=== PATIENT | female | born 1955 | race Caucasian/White ===

== ENCOUNTER 2021-05-31 07:50 | Outpatient (REF) | payer OTHER, SELFPAY ==
--- NOTE | ~2021-05-31 | XR_ITS ---
EXAMINATION: XR KNEE STANDING BILATERAL XR KNEE, RIGHT XR KNEE, LEFT CLINICAL INFORMATION: Bilateral knee pain COMPARISON: 11/25/2017 TECHNIQUE: AP standing view both knees Right knee, sunrise and lateral views Left knee, sunrise and lateral views FINDINGS: AP standing view both knees: There are marginal osteophytes at the degenerated tibiofemoral compartments of each knee. At the right knee, there is mild narrowing of the medial joint space. At the left knee, there is severe loss of the medial joint space. The joint space loss at the left knee is slightly worse compared to 11/25/2017. Right knee: Mild narrowing of lateral patellofemoral joint space and osteophyte formation. No fracture or subluxation. No knee joint effusion. Left knee: Patella is well-positioned in the trochlear groove. The patellofemoral joint space is maintained despite presence of marginal osteophytes and small subchondral cysts. No fracture, subluxation or joint effusion. XR/XR knee RT 2V IMPRESSION: * Chronic, mild tricompartmental osteoarthritis of the right knee. * Chronic, tricompartment osteoarthritis of the left knee which is worst (i.e., severe) at the medial tibiofemoral compartment. The medial compartment joint space loss appears to be worse compared to 11/25/2017.
--- NOTE | ~2021-05-31 | XR_ITS ---
EXAMINATION: XR KNEE STANDING BILATERAL XR KNEE, RIGHT XR KNEE, LEFT CLINICAL INFORMATION: Bilateral knee pain COMPARISON: 11/25/2017 TECHNIQUE: AP standing view both knees Right knee, sunrise and lateral views Left knee, sunrise and lateral views FINDINGS: AP standing view both knees: There are marginal osteophytes at the degenerated tibiofemoral compartments of each knee. At the right knee, there is mild narrowing of the medial joint space. At the left knee, there is severe loss of the medial joint space. The joint space loss at the left knee is slightly worse compared to 11/25/2017. Right knee: Mild narrowing of lateral patellofemoral joint space and osteophyte formation. No fracture or subluxation. No knee joint effusion. Left knee: Patella is well-positioned in the trochlear groove. The patellofemoral joint space is maintained despite presence of marginal osteophytes and small subchondral cysts. No fracture, subluxation or joint effusion. XR/XR knee LT 2V IMPRESSION: * Chronic, mild tricompartmental osteoarthritis of the right knee. * Chronic, tricompartment osteoarthritis of the left knee which is worst (i.e., severe) at the medial tibiofemoral compartment. The medial compartment joint space loss appears to be worse compared to 11/25/2017.
--- NOTE | ~2021-05-31 | XR_ITS ---
EXAMINATION: XR KNEE STANDING BILATERAL XR KNEE, RIGHT XR KNEE, LEFT CLINICAL INFORMATION: Bilateral knee pain COMPARISON: 11/25/2017 TECHNIQUE: AP standing view both knees Right knee, sunrise and lateral views Left knee, sunrise and lateral views FINDINGS: AP standing view both knees: There are marginal osteophytes at the degenerated tibiofemoral compartments of each knee. At the right knee, there is mild narrowing of the medial joint space. At the left knee, there is severe loss of the medial joint space. The joint space loss at the left knee is slightly worse compared to 11/25/2017. Right knee: Mild narrowing of lateral patellofemoral joint space and osteophyte formation. No fracture or subluxation. No knee joint effusion. Left knee: Patella is well-positioned in the trochlear groove. The patellofemoral joint space is maintained despite presence of marginal osteophytes and small subchondral cysts. No fracture, subluxation or joint effusion. XR/XR knee standing BI IMPRESSION: * Chronic, mild tricompartmental osteoarthritis of the right knee. * Chronic, tricompartment osteoarthritis of the left knee which is worst (i.e., severe) at the medial tibiofemoral compartment. The medial compartment joint space loss appears to be worse compared to 11/25/2017.
== END 2021-05-31 07:51 | disposition home or self-care (01) ==
LOC: HO.HOSX 07:50
PROVIDERS: Visit Provider Physician Assistant
DX: M17.0 Bilateral primary osteoarthritis of knee (principal)
CPT/HCPCS: 20610; 73560; 73565; J1040

== ENCOUNTER 2022-06-03 10:38 | Outpatient (REF) | payer OTHER, SELFPAY ==
[2022-06-03 13:48] LABS: MANUAL DIFF FLAG NO
[2022-06-03 13:54] LABS: Appearance Urine CLEAR; Color Urine YELLOW; Glucose Urine UA NEG (NEG); Leukocyte Esterase Urine NEG (NEG); Nitrite Urine NEG (NEG); PH 7.5 (5.0-8.0); Specific Gravity - Urine 1.015 (1.005-1.025); Urine Blood NEG (NEG); Urine Ketones NEG (NEG); Urine Protein NEG (NEG-TRACE)
[2022-06-03 13:55] LABS: Basophils Absolute Auto 0.1 X10*3/uL (0.0-0.2); Basophils Percent Auto 0.9 % (0-2); Eosinophils Absolute Auto 0.1 X10*3/uL (0.0-0.4); Hematocrit 42.1 % (37.0-47.0); Hemoglobin 13.8 g/dl (12.0-16.0); Imm Gran Abs Auto 0.02 X10*3/uL (0.00-0.03); Imm Gran Pct Auto 0.4 % (0.0-0.4); Lymphocytes Absolute Auto 1.3 X10*3/uL (1.2-4.9); Lymphocytes Percent Auto 23.6 % (20-40); Mean Corpuscular HGB Conc 32.8 g/dl (31.0-35.0); Mean Corpuscular Hemoglobin 28.8 pg (27.0-33.0); Mean Corpuscular Volume 87.7 fL (80.0-98.0); Mean Platelet Volume 11.1 fL (9.4-12.3); Monocytes Absolute Auto 0.4 X10*3/uL (0.1-1.2); Monocytes Percent Auto 6.3 % (2-11); Neutrophils Absolute Auto 3.7 x10*3/uL (2.0-8.3); Neutrophils Percent Auto 66.8 % (45-73); Platelet Count 245 X10*3/uL (160-400); Red Cell Distribution Width 12.8 % (11.0-16.0); White Blood Count 5.5 X10*3/uL (4.8-10.8)
[2022-06-03 14:05] LABS: Bacteria Urine 2+ /LPF; RBC Urine 0 /HPF (0); Squamous Epithelial Cell Urine 4+ /LPF
[2022-06-03 14:11] LABS: Alanine Aminotransferase 19 U/L (0-31); Albumin Level 4.3 g/dL (3.5-5.0); Alkaline Phosphatase 87 U/L (39-117); Anion Gap 17 (12-20); Aspartate Amino Transferase 16 U/L (5-31); Bilirubin Total 1.1 mg/dL (0.0-1.0); Blood Urea Nitrogen 15 mg/dL (9-16); Calcium 9.9 mg/dL (8.4-10.2); Carbon Dioxide 25 mmol/L (22-29); Chloride 103 mmol/L (96-108); Cholesterol 194 mg/dL; Estimated Glomerular Filt Rate > 60; Glucose Fasting 100 mg/dL (60-99); HDL Cholesterol 63 mg/dL; LDL Cholesterol Calculated 101 mg/dl; Potassium 4.5 mmol/L (3.3-5.1); Sodium 140 mmol/L (135-145); Total Protein 7.5 g/dL (6.5-8.0); Triglycerides 153 mg/dL
[2022-06-03 14:15] LABS: Estimated Average Glucose 117 mg/dL; Hemoglobin A1c % 5.7 %
[2022-06-03 14:24] LABS: TSH reflex Free T4 0.94 uIU/mL (0.32-4.0)
== END 2022-06-03 10:39 | disposition home or self-care (01) ==
LOC: HO.HMGCLDS 10:38
PROVIDERS: PCP Internal Medicine; Visit Provider Internal Medicine
DX: Z00.00 Encounter for general adult medical examination without abnormal findings (principal); R73.9 Hyperglycemia, unspecified
CPT/HCPCS: 36415; 80053; 80061; 81001; 83036; 84443; 85025

== ENCOUNTER 2022-06-05 15:53 | Outpatient (REF) | payer OTHER, SELFPAY ==
--- NOTE | ~2022-06-05 | MM_ITS ---
EXAMINATION: MM SCREENING DIGITAL BREAST TOMOSYNTHESIS, BILATERAL CLINICAL INFORMATION: Screening. Asymptomatic. The lifetime risk of breast cancer based on the Tyrer-Cuzick Model is 4.6%. COMPARISON: Mammography: None TECHNIQUE: Digital breast tomosynthesis is performed in both the craniocaudal and mediolateral oblique views along with computer-aided detection (CAD). Synthesized 2D images are generated from the tomosynthesis. FINDINGS: The breasts are almost entirely fatty (ACR BI-RADS breast composition Category a). There are no significant masses, abnormal calcifications, or other abnormalities. MM/MM tomosynthesis screening BI IMPRESSION: No mammographic evidence of malignancy. ASSESSMENT: BI-RADS 1: Negative RECOMMENDATION: Routine annual mammography screening. This patient's information was entered into a reminder system with a target due date for their next mammogram.
== END 2022-06-05 15:54 | disposition home or self-care (01) ==
LOC: HO.MAMMO 15:53
PROVIDERS: PCP Internal Medicine; Visit Provider Internal Medicine
DX: Z12.31 Encounter for screening mammogram for malignant neoplasm of breast (principal)
CPT/HCPCS: 77063; 77067

== ENCOUNTER 2022-10-07 07:35 | Outpatient (REF) | payer OTHER, SELFPAY ==
[2022-10-07 09:42] LABS: Estimated Average Glucose 108 mg/dL; Hemoglobin A1c % 5.4 %
[2022-10-07 10:13] LABS: Alanine Aminotransferase 18 U/L (0-31); Albumin Level 4.1 g/dL (3.5-5.0); Alkaline Phosphatase 78 U/L (39-117); Anion Gap 13 (12-20); Aspartate Amino Transferase 15 U/L (5-31); Bilirubin Total 0.8 mg/dL (0.0-1.0); Blood Urea Nitrogen 15 mg/dL (9-16); Calcium 9.7 mg/dL (8.4-10.2); Carbon Dioxide 27 mmol/L (22-29); Chloride 107 mmol/L (96-108); Estimated Glomerular Filt Rate > 60; Glucose Fasting 103 mg/dL (60-99); Potassium 4.8 mmol/L (3.3-5.1); Sodium 142 mmol/L (135-145); Total Protein 6.9 g/dL (6.5-8.0)
== END 2022-10-07 07:36 | disposition home or self-care (01) ==
LOC: HO.LAB 07:35
PROVIDERS: PCP Internal Medicine; Visit Provider Internal Medicine
DX: I10 Essential (primary) hypertension (principal); R73.9 Hyperglycemia, unspecified
CPT/HCPCS: 36415; 80053; 83036

== ENCOUNTER → 2022-11-05 08:58 | Outpatient (REF) | payer BC, SELFPAY | LOC: HO.SL 08:58 | PROVIDERS: PCP Internal Medicine; Visit Provider Internal Medicine | DX: G47.33 Obstructive sleep apnea (adult) (pediatric) (principal) | CPT/HCPCS: 95806 ==

== ENCOUNTER → 2022-11-11 08:52 | Outpatient (BNVA) | payer BC, SELFPAY | PROVIDERS: PCP Internal Medicine; Visit Provider Nurse Practitioner | DX: Z13.89 Encounter for screening for other disorder (principal) ==

== ENCOUNTER → 2022-11-14 12:45 | Outpatient (BNVA) | payer BC, SELFPAY | PROVIDERS: PCP Internal Medicine; Visit Provider Nurse Practitioner Family | DX: Z13.89 Encounter for screening for other disorder (principal) ==

== ENCOUNTER → 2023-02-12 14:18 | Outpatient (BNVA) | payer BC, SELFPAY | PROVIDERS: PCP Internal Medicine; Visit Provider Nurse Practitioner Family | DX: Z13.89 Encounter for screening for other disorder (principal) ==

== ENCOUNTER 2023-03-31 13:07 | Outpatient (REF) | payer BC, SELFPAY ==
[2023-04-01 11:42] LABS: Appearance Urine Clear; Color Urine Yellow; Glucose Urine UA Negative (Negative); Leukocyte Esterase Urine Negative (Negative); Nitrite Urine Negative (Negative); PH 5.5 (5.0-9.0); Urine Blood Negative (Negative); Urine Ketones Negative (Negative); Urine Protein Negative (Neg-Trace)
== END 2023-03-31 13:08 | disposition home or self-care (01) ==
LOC: HO.LAB 13:07
PROVIDERS: Visit Provider Family Medicine
DX: Z00.00 Encounter for general adult medical examination without abnormal findings (principal); R30.0 Dysuria
CPT/HCPCS: 81003; 87086; 87088; 87186

== ENCOUNTER 2023-05-26 09:29 | Outpatient (REF) | payer BC, SELFPAY ==
[2023-05-26 10:41] LABS: Estimated Average Glucose 114 mg/dL; Hemoglobin A1c % 5.6 %
[2023-05-26 11:03] LABS: Alanine Aminotransferase 15 U/L (0-31); Albumin Level 4.1 g/dL (3.5-5.0); Alkaline Phosphatase 84 U/L (39-117); Anion Gap 10 (12-20); Aspartate Amino Transferase 12 U/L (5-31); Bilirubin Total 1.3 mg/dL (0.0-1.0); Blood Urea Nitrogen 15 mg/dL (9-16); Calcium 9.8 mg/dL (8.4-10.2); Carbon Dioxide 27 mmol/L (22-29); Chloride 107 mmol/L (96-108); Cholesterol 142 mg/dL; Estimated Glomerular Filt Rate > 60; Glucose Fasting 112 mg/dL (60-99); HDL Cholesterol 54 mg/dL; LDL Cholesterol Calculated 69 mg/dl; Potassium 4.1 mmol/L (3.3-5.1); Sodium 140 mmol/L (135-145); Total Protein 7.3 g/dL (6.5-8.0); Triglycerides 98 mg/dL
[2023-05-26 11:23] LABS: Vitamin D 25-OH Total 13.3 ng/mL (>30)
[2023-05-26 11:29] LABS: Vitamin B12 398 pg/mL (200-900)
== END 2023-05-26 09:30 | disposition home or self-care (01) ==
LOC: HO.LAB 09:29
PROVIDERS: PCP Internal Medicine; Visit Provider Internal Medicine
DX: I10 Essential (primary) hypertension (principal); R73.9 Hyperglycemia, unspecified
CPT/HCPCS: 36415; 80053; 80061; 82306; 82607; 83036; 84443

== ENCOUNTER 2023-06-04 10:13 | Outpatient (AMB) | payer BC, SELFPAY ==
[2023-06-04 10:38] VITALS: BP 130/70; PULSE 74; O2SAT 95; BMI 41.4
--- NOTE | 2023-06-04 10:38 | MHC.PC.OV ---
Vital Signs 06/04/23 10:38 Height 5 ft 4 in Weight 241 lb BMI 41.4 BP 130/70 Blood Pressure Location Lt brachial Position Sitting Pulse 74 Pulse Source Pulse Oximeter Pulse Oximetry (%) 95 Oxygen Delivery Method Room Air Intake Visit Reasons: Annual PHY Allergies aspirin [ASPIRIN] Adverse Reaction (Unknown, Verified 06/04/23 10:39) STOMACH SENSITIVITY ibuprofen [IBUPROFEN] Adverse Reaction (Unknown, Verified 06/04/23 10:39) STOMACH SENSITIVITY Medication List - Last Reconciled 06/04/23 by Jacqueline Archer MD celecoxib (Celebrex) 200 mg PO DAILY PRN fluconazole (Diflucan) 150 mg PO Q3D 2 doses olmesartan 5 mg PO DAILY riboflavin (vitamin B2) 400 mg PO DAILY 30 days sodium,potassium,mag sulfates 17.5-3.13-1.6 gram (Suprep Bowel Prep Kit) 480 mL orally; Tobacco use date assessed: 06/04/23 Fall risk assessment: 1 Fall in past year Last assessed Fall Risk: 06/04/23 Dental Screening Dental Screen Date: 06/04/23 Did you have a dental visit in the last 12 months?: Yes Did you have a dental problem in the last 6 months where you did not have access to dental care?: No Was dental information given to patient?: No HPI Annual PHY HPI Details Pt presents for PE. Pt c/o rash in the groin area on and off. 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 How often do you have a drink containing alcohol?: Never 3. How often do you have six or more drinks on one occasion?: Never Total Score: 0 Score Reviewed/Action Taken: Yes PEGGY-7 AMB Questionnaire PEGGY-7 Date PEGGY - 7 assessed: 06/03/22 Source: Developed by Drs. Jan Araya, Angela Quijano, Maciel Rothman and colleagues, with an educational amy from [employer]. Review of Systems Const All systems reviewed & are unremarkable except as noted in HPI and below Reports no additional complaints Eyes Reports no additional complaints ENT Reports no additional complaints Card Reports no additional complaints Resp Reports no additional complaints GI Reports no additional complaints Reports no additional complaints Physical exam (Primary Care) Vital Signs: Last Vital Signs Pulse 74 06/04/23 10:38 BP 130/70 06/04/23 10:38 Pulse Ox 95 06/04/23 10:38 Oxygen Delivery Method Room Air 06/04/23 10:38 BMI result Body Mass Index 41.4 Tobacco/Smoking Status: Tobacco use Status Tobacco use date assessed 06/04/23 06/04/23 10:39 Patient Tobacco Use Status Former Tobacco user (15 06/04/23 10:39 years ago) e-Cigarette/Vaping Use Never Used 06/04/23 10:39 Thrive Assessment: Date of Thrive Assessment Date Thrive assessed 06/03/22 06/04/23 10:39 Const General: no acute distress HENMT Head: Yes normal to inspection Ears: hearing grossly normal bilaterally Mouth: Normal oral and palatal mucosa present Throat: Yes posterior oropharynx normal Eyes General: appearance normal, both eyes and all related structures Neck Neck: Yes no lymphadenopathy and Yes supple Resp Effort & Inspection: normal respiratory effort Auscultation: clear to auscultation bilaterally Cardio Rhythm: regular rhythm Heart sounds: S1 normal heart sound present and S2 normal heart sound present GI Inspection: Yes normal to inspection Palpation (GI): Soft to palpation Percussion: Yes normal to percussion Auscultation: normal bowel sounds Assessment and Plan Assessment & Plan (1) DEZ (obstructive sleep apnea): Comment: Severe degree of sleep apnea. The AHI was 37/hr and oxygen jeffy was 78%. on Cpap Code(s): G47.33 - Obstructive sleep apnea (adult) (pediatric) (2) HTN (hypertension): Code(s): I10 - Essential (primary) hypertension Plan: cont Olmesartan (3) Annual physical exam: Code(s): Z00.00 - Encounter for general adult medical examination without abnormal findings Plan: well balanced diet, exercise, weight loss dicussed, check DEXA (4) Hyperglycemia: Code(s): R73.9 - Hyperglycemia, unspecified Plan: ADA diet, weight loss, check A1C Orders: Orders Comprehensive [place]. Panel Fast 6 Months I10 - Essential (primary) hypertension, R73.9 - Hyperglycemia, unspecified Hemoglobin A1c 6 Months I10 - Essential (primary) hypertension, R73.9 - Hyperglycemia, unspecified Lipid Panel 6 Months I10 - Essential (primary) hypertension, R73.9 - Hyperglycemia, unspecified Microalbumin, Random (w Creat) 6 Months I10 - Essential (primary) hypertension, R73.9 - Hyperglycemia, unspecified Medications: New ketoconazole 2% 1 appl topical DAILY 60 grams 3RF Coding Level of Care Code Est Pt Prev Care >65y(92852) Diagnoses DEZ (obstructive sleep apnea) G47.33 HTN (hypertension) I10 Annual physical exam Z00.00 Hyperglycemia R73.9
== END 2023-06-04 13:44 | disposition home or self-care (01) ==
PROVIDERS: PCP Internal Medicine; Visit Provider Internal Medicine
DX: G47.33 Obstructive sleep apnea (adult) (pediatric) (principal); I10 Essential (primary) hypertension; Z00.00 Encounter for general adult medical examination without abnormal findings; R73.9 Hyperglycemia, unspecified
CPT/HCPCS: 99397

== ENCOUNTER 2023-06-16 10:57 | Day surgery (SDC) | payer BC, SELFPAY ==
--- NOTE | 2023-06-15 10:30 | HO.ANESPROP2 ---
Documented by User: Liliana Stevens NP 06/15/23 10:30 HPI - Anesthesia Eval Consult details Narrative: 67yo F for Colonoscopy PMFSH Active Problems Active Problems: All Active Problems (Updated 06/04/23 @ 21:24 by Jacqueline Archer MD) Dysuria (Acute) DEZ (obstructive sleep apnea) (Acute) Family history of colon cancer in father (Acute) Pre-op examination (Acute) S/P knee replacement (Acute) Fibromyalgia (Acute) HTN (hypertension) (Acute) Obese (Acute) OA (osteoarthritis) of knee (Acute) Hyperglycemia (Acute) Annual physical exam (Acute) Osteoarthritis of knees, bilateral (Acute) Past Medical History Medical History Fibromyalgia Osteoarthritis cervical spine Family History Family History Father Colorectal cancer Paternal Grandmother Diabetes Mother Hypertension Lung cancer Surgical History Surgical History H/O: hysterectomy History of carpal tunnel surgery S/P cholecystectomy Social History Social History Household Members Other:: , works from home, no exercise Housing: House Patient Tobacco Use Status: Former Tobacco user Tobacco use type: Cigarette e-Cigarette/Vaping Use: Never Used Use of substances other than those prescribed or required for medical reasons: No Are you DNR?: No Advance Directives: No Advance Directives Information Provided: Yes service: No Current occupational status: employed 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 Cognitive needs: No Hearing needs: No Vision needs: Yes Meds Allergies Allergy/AdvReac Type Severity Reaction Status Date / Time aspirin [ASPIRIN] AdvReac Unknown STOMACH Verified 06/04/23 10:39 SENSITIVITY ibuprofen [IBUPROFEN] AdvReac Unknown STOMACH Verified 06/04/23 10:39 SENSITIVITY Home Medications Medication Instructions Recorded Confirmed Last Taken Type celecoxib 200 mg capsule (Celebrex) 200 mg PO DAILY PRN 11/11/22 06/04/23 Unknown History Exam Exam Date and Time: June 15, 2023 1030 Pertinent Lab Results Pertinent Lab Results: Laboratory Tests 06/03/22 05/26/23 10:43 10:02 WBC 5.5 Hgb 13.8 Hct 42.1 Plt Count 245 Sodium 140 Potassium 4.1 Chloride 107 Carbon Dioxide 27 BUN 15 Creatinine 0.87 Assessment and Plan Assessment Anesthesia Assessment: Chart Reviewed Documented by User: Paula Reilly MD 06/16/23 11:38 PMFSH Past Medical History Medical History Fibromyalgia Osteoarthritis cervical spine Family History Family History Father Colorectal cancer Paternal Grandmother Diabetes Mother Hypertension Lung cancer Family history of problems with anesthesia: No Surgical History Surgical History H/O: hysterectomy History of carpal tunnel surgery S/P cholecystectomy History of Problems with Anesthesia: No Social History Social History Household Members Other:: , works from home, no exercise Housing: House Patient Tobacco Use Status: Former Tobacco user Tobacco use type: Cigarette e-Cigarette/Vaping Use: Never Used Use of substances other than those prescribed or required for medical reasons: No Are you DNR?: No Advance Directives: No Advance Directives Information Provided: Yes service: No Current occupational status: employed 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 Cognitive needs: No Hearing needs: No Vision needs: Yes Meds Allergies Allergy/AdvReac Type Severity Reaction Status Date / Time aspirin [ASPIRIN] AdvReac Unknown STOMACH Verified 06/04/23 10:39 SENSITIVITY ibuprofen [IBUPROFEN] AdvReac Unknown STOMACH Verified 06/04/23 10:39 SENSITIVITY Home Medications Medication Instructions Recorded Confirmed Last Taken Type celecoxib 200 mg capsule (Celebrex) 200 mg PO DAILY PRN 11/11/22 06/04/23 Unknown History Exam Airway Mallampati Class: II TM Dist: >3cm Neck ROM: Full Partial: Upper Heart: rrr Lungs: cta Assessment and Plan Assessment Anesthesia Assessment: Anesthesia Plan Discussed Final Anesthetic Review Family History of Problems with Anesthesia: No History of Problems with Anesthesia: No NPO: Yes ASA Class: II Final Preanesthetic Review: No Changes in Pt Med Stat, Meds/Allgs Chart Reviewed, Consent Obtained/Reviewed and Anes Risks/Benef Reviewed Patient Risk: Low Procedure Risk: Low Anesthetic Plan Anesthetic Plan: MAC: Disposition: Standard PACU
--- NOTE | 2023-06-16 11:12 | MHC.SHP ---
Pre-Procedural Eval Section A Date of Service: 06/16/23 Section B Chief Complaint: Family history of malignant neoplasm of digestive Relevant Family History (Specify if Yes): Yes Relevant Social History: None Present Medications: see Short Stay Collaborative assessment Medical History: Significant History (Hypertension Impaired fasting glucose Obese OA of the knees FMS) History of Previous Operations: Relevant previous surgery/procedure and date(s) (Hysterectomy CT repair Cholecystectomy Left TKR) Allergies: Allergies Allergy/AdvReac Type Severity Reaction Status Date / Time aspirin [ASPIRIN] AdvReac Unknown STOMACH Verified 06/04/23 10:39 SENSITIVITY ibuprofen [IBUPROFEN] AdvReac Unknown STOMACH Verified 06/04/23 10:39 SENSITIVITY Review of Systems Sugical H&P ROS: Negative: Constitution, Cardiovascular, Respiratory, Neurological, Psychiatric, Hem-Onc, Allergic/Immunologic, Gastrointestinal, Genitourinary, Musculoskeletal, Integumentary, Endocrine and Eyes/Ears/Nose/Throat Exam Surgical H&P Exam: Normal: HEENT, Normal: Heart, Normal: Lungs, Normal: Extremities, Normal: Abdomen, Normal: Skin and Normal: Neurological Plan Diagnosis/Plan: Unchanged I have reviewed the history and physical and performed a pertinent physical examination on my patient. No changes have occurred unless specified. Time Spent With Patient Time: Total time managing care of this patient today ____ minutes.
[2023-06-16 11:13] VITALS: BMI 41.0
--- NOTE | 2023-06-16 11:26 | PC.NURSE ---
patients output after second enema was cloudy and light msall unable to see down the toilet. md moore aware. building economist called to cancel patient.
[2023-06-16 11:28] VITALS: BP 158/89; PULSE 79; RESP 16; TEMP 37; O2SAT 96
[2023-06-16] MEDS: Lactated Ringers 1,000 ML 100 ML IVCONT (11:38)
--- NOTE | 2023-06-16 11:46 | P.OP_ITS ---
Operative Note Operative Note Date of Service: 06/16/23 Narrative: Operative Information Procedure Description: Colonoscopy Indication: screening, FH of CRC Anesthesia: MAC COLONOSCOPY Instrument: Olympus variable stiffness pediatric scope 190L Colonoscopy Monitoring: Vital signs and clinical assessment, continuous EKG monitoring, Pulse oximetry, Carbon Dioxide monitoring and blood pressure monitoring were done throughout the procedure. Colon withdrawal time was 22 minutes. Procedure: The patient was placed in the left lateral decubitis position and pre-procedure medications were administered. After a digital rectal examination of the ano-rectum, the video colonoscope was inserted into the rectum and advanced through the colon to the cecum/TI. The colonoscope was slowly withdrawn in a retrograde panoramic fashion and the colon mucosa was carefully examined including a retroflexed view of the rectum. Findings and interventions are described below. Procedure Difficulty: moderate Findings: Terminal Ileum-normal Cecum: 6-8 mm sessile polyp removed with cold snare Ascending Colon: few tics noted, 8-9 mm sessile polyp on retroflexion, injected with eleview and then removed with cold snare Transverse Colon -normal Descending Colon:normal Sigmoid Colon: moderate diverticulosis, 8-10 mm sessile polyp removed with cold snare Rectum: Retroflexion with medium sized internal hemorrhoids, grade I Anorectum - normal Colon preparation: Olivia Bowel Preparation Scale Right colon; 2 Transverse colon: 3 Left colon; 2 (0 = Unprepared colon segment with mucosa not seen due to solid stool that cannot be cleared. 1 = Portion of mucosa of the colon segment seen, but other areas of the colon segment not well seen due to staining, residual stool and/or opaque liquid. 2 = Minor amount of residual staining, small fragments of stool and/or opaque liquid, but mucosa of colon segment seen well. 3 = Entire mucosa of colon segment seen well with no residual staining, small fragments of stool or opaque liquid) Impression and Post Procedure Diagnosis: polyps internal hemorrhoids diverticular disease Plan: High fiber diet leaflet Avoid straining at stool, epsom salts and sitz bath, anusol supps or cream Repeat Colonoscopy in 5 years due to FH of CRC in father or earlier if clinically indicated Refer surgery for hemorrhoids per patient request Above findings were reviewed with the patient and relevant handouts were provided if indicated.
[2023-06-16 12:24] VITALS: BP 122/62; PULSE 78; RESP 16; TEMP 36.8; O2SAT 98
[2023-06-16 12:39] VITALS: BP 120/67; PULSE 64; RESP 18; TEMP 36.8; O2SAT 98
== END 2023-06-16 13:00 | disposition home or self-care (01) ==
PROVIDERS: PCP Internal Medicine; Visit Provider Internal Medicine Gastroenterology
PROC: 0DJD8ZZ Inspection of Lower Intestinal Tract, Via Natural or Artificial Opening Endoscopic (ICD-10-PCS; CPT 45378; principal; 2023-06-16 12:30)
DX: Z12.11 Encounter for screening for malignant neoplasm of colon (principal); Z80.0 Family history of malignant neoplasm of digestive organs; K63.5 Polyp of colon; K57.30 Diverticulosis of large intestine without perforation or abscess without bleeding; K64.0 First degree hemorrhoids; I10 Essential (primary) hypertension; R73.9 Hyperglycemia, unspecified; G47.33 Obstructive sleep apnea (adult) (pediatric); E66.9 Obesity, unspecified; Z68.41 Body mass index [BMI] 40.0-44.9, adult; Z79.899 Other long term (current) drug therapy; Z99.89 Dependence on other enabling machines and devices; F17.210 Nicotine dependence, cigarettes, uncomplicated; Z88.8 Allergy status to other drugs, medicaments and biological substances
CPT/HCPCS: 45385; 45381; 88305

== ENCOUNTER → 2023-06-16 10:57 | Outpatient (BNV) | payer BC, SELFPAY | PROVIDERS: PCP Internal Medicine; Visit Provider Internal Medicine Gastroenterology | DX: Z12.11 Encounter for screening for malignant neoplasm of colon (principal); Z80.0 Family history of malignant neoplasm of digestive organs; D12.0 Benign neoplasm of cecum; D12.2 Benign neoplasm of ascending colon; D12.5 Benign neoplasm of sigmoid colon; K64.0 First degree hemorrhoids | CPT/HCPCS: 45381; 45385 ==

== ENCOUNTER 2023-06-19 11:27 | Outpatient (REF) | payer BC, SELFPAY | END 2023-06-19 11:28 | disposition home or self-care (01) | LOC: HO.MAMMO 11:27 | PROVIDERS: PCP Internal Medicine; Visit Provider Internal Medicine | DX: Z12.31 Encounter for screening mammogram for malignant neoplasm of breast (principal) | CPT/HCPCS: 77063; 77067 ==

== ENCOUNTER → 2023-06-19 11:45 | Outpatient (BNV) | payer BC, SELFPAY | PROVIDERS: PCP Internal Medicine; Visit Provider Radiology Diagnostic Radiology | DX: Z12.31 Encounter for screening mammogram for malignant neoplasm of breast (principal) | CPT/HCPCS: 77063; 77067 ==

== ENCOUNTER 2023-07-08 14:12 | Outpatient (AMB) | payer BC, SELFPAY ==
[2023-07-08 14:13] VITALS: BP 144/78; PULSE 93; BMI 42.7
--- NOTE | 2023-07-08 14:13 | A.OFFVIS_ITS ---
Intake Vital Signs 07/08/23 14:13 Height 5 ft 4 in Weight 249 lb BMI 42.7 BP 144/78 H Blood Pressure Location Rt brachial Position Standing Pulse 93 Intake Visit Reasons: Unspecified hemorrhoids Intake Note: This patient presents for an assessment for hemorrhoids. Patient c/o; reports rectal pain, denies rectal bleeding, denies changes in bowel movement habits. Tattoo Technician Required: No Solar Sales Specialist: Solar Sales Specialist offered & declined Accompanied by: Self / Same As Patient Allergies aspirin [ASPIRIN] Adverse Reaction (Unknown, Verified 07/08/23 14:14) STOMACH SENSITIVITY ibuprofen [IBUPROFEN] Adverse Reaction (Unknown, Verified 07/08/23 14:14) STOMACH SENSITIVITY Medication List - Last Reconciled 07/08/23 by Charly Vallejo MD olmesartan 5 mg PO DAILY HPI Unspecified hemorrhoids HPI Details [age] year old female referred for hemorrhoids. She says she has had hemorrhoids since she was at age of 20. However, she says that she seems to have more frequent problems with and pain. Furthermore, she says she has difficulty with hygiene sometimes as the hemorrhoids make it more difficult to clean up after bowel movements. She denies problems with constipation. She occasionally sees blood on wiping. 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 Cognitive needs: No Hearing needs: No Vision needs: Yes Review of Systems Const Denies chills and Denies fever(s) Card Denies chest pain, Denies dyspnea and Denies dyspnea on exertion Resp Denies cough, Denies dyspnea and Denies dyspnea on exertion GI Denies hematochezia and Denies change in bowel habits Denies hematuria Musc Denies back pain and Denies limited range of motion Neuro Denies focal weakness and Denies convulsions Psych Denies depression and Denies mood swings Physical Exam Vital Signs: Last Vital Signs Pulse 93 07/08/23 14:13 BP 144/78 H 07/08/23 14:13 BMI result Body Mass Index 42.7 Const Other: Morbidly obese General: comfortable and no acute distress Orientation/consciousness: patient oriented x3 Neck Neck: Yes no lymphadenopathy Resp Auscultation: clear to auscultation bilaterally Cardio Rhythm: regular rhythm GI Other: Rectal exam shows moderate size external hemorrhoidal column on the right side Palpation (GI): Soft to palpation, nontender and no guarding Neuro General: patient oriented x3 Office Procedures Anoscopy She was in nadia-knife position. The anoscope was gently inserted. A full examination of the anal canal was done. She had a relatively large hemorrhoidal column on the right side, most external. There were no other lesions. There was no fissure. There was no induration. There was no bleeding. [id number] Assessment & Plan Assessment & Plan (1) Bleeding hemorrhoids: Code(s): K64.9 - Unspecified hemorrhoids Plan: She describes periodic bleeding as well as pain and swelling with her hemorrhoids. She also says that these causes some problems with hygiene as she has difficulty with cleaning after bowel movements. On examination, this mostly external on the right side. I had a long discussion with her about the technique of hemorrhoidectomy. I explained the risks including but not limited to bleeding, infections, poor healing, postop pain, as well as the benefits and alternatives. I explained to her what to expect postoperatively. She says she will talk to her sister about the surgery and will call me if she decides to proceed. Coding Level of Care Code New Pt Level 3 (92465) Diagnoses Bleeding hemorrhoids K64.9 CPT Codes Details - CPT: 72425-[id number] ([id number])
== END 2023-07-08 14:39 | disposition home or self-care (01) ==
PROVIDERS: PCP Internal Medicine; Referring Provider Internal Medicine Gastroenterology; Visit Provider Surgery
DX: K64.8 Other hemorrhoids (principal)
CPT/HCPCS: 46600; 99203

== ENCOUNTER → 2023-07-08 14:12 | Outpatient (BNVA) | payer BC, SELFPAY | PROVIDERS: PCP Internal Medicine; Referring Provider Internal Medicine Gastroenterology; Visit Provider Surgery | DX: K64.4 Residual hemorrhoidal skin tags (principal) | CPT/HCPCS: 46600 ==

== ENCOUNTER 2023-07-15 09:53 | Outpatient (AMB) | payer BC, SELFPAY ==
[2023-07-15 09:57] VITALS: BP 134/68; PULSE 69; BMI 42.7
--- NOTE | 2023-07-15 09:57 | A.OFFVIS_ITS ---
Intake Vital Signs 07/15/23 09:57 Height 5 ft 4 in Weight 249 lb BMI 42.7 BP 134/68 Blood Pressure Location Rt brachial Position Sitting Pulse 69 Intake Visit Reasons: S/p mehnaz-Luis Armando Intake Note: Patient presents to in office visit today in colonoscopy follow up. Patient underwent colonoscopy on 06/16/[address] Durán. On last visit office in November the patient was c/o rectal pain. CC: She reports occasional constipation depending on what she eats or drinks but takes Miralax and that helps. 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 She has fears of the prep r/t her large and easily irritated external hemorrhoid, and N/V as her stomach is sensitive. Will send zofran and give Calmoseptine cream. She has occasional diarrhea, this is when she eats 20 fatty foods status post cholecystectomy and she denies any upper stomach problems. She has had nausea with prior anesthesia. She just had a test for DEZ and she is awaiting the results. She denies any asthma or out right cardiac problems. No ID problems Her father of CRC at age 62. (2) Family history of colon cancer in fa ther: Comment: age 62 Code(s): Z80.0 - Family history of malignant neoplasm of digestive organs Medications: New sodium,potassium,m ag sulfates 17.5-3 .13-1.6 gram (Supr ep Bowel Prep Kit) 480 mL orally; 3 54 mL 0RF Z01.818 - Encounte r for other prepro cedural examinatio n ondansetron HCl 4 mg PO ONCE PRN 2 tabs 0RF nausea and vomiting : COLONOSCOPY 06/16/23 Findings: Terminal Ileum-normal Cecum: 6-8 mm sessile polyp removed with cold snare Ascending Colon: few tics noted, 8-9 mm sessile polyp on retroflexion, injected with eleview and then removed with cold snare Transverse Colon -normal Descending Colon:normal Sigmoid Colon: moderate diverticulosis, 8-10 mm sessile polyp removed with cold snare Rectum: Retroflexion with medium sized internal hemorrhoids, grade I Anorectum - normal Impression and Post Procedure Diagnosis: polyps internal hemorrhoids diverticular disease Plan: High fiber diet leaflet Avoid straining at stool, epsom salts and sitz bath, anusol supps or cream Repeat Colonoscopy in 5 years due to FH of CRC in father or earlier if clinically indicated Refer surgery for hemorrhoids per patient request BIOPSY Received: 06/16/23 Diagnosis A. Colon, cecal polyp: Consistent with hyperplastic polyp. B. Colon, ascending, polyp: Consistent with hyperplastic polyp (see comment). C. Colon, sigmoid, polyp: Perineurioma. Comment: (B): Sessile serrated lesion without dys plasia cannot be ruled out in any residual lesion. Follow-up warranted FROM [facility] Colonic perineuriomas, or fibroblastic polyps, are rare benign mucosal lesions comprising a proliferation of bland spindle cells expressing markers of perineurial differentiation.1 https:// casereports.bmj.com/content/[email or web address]#ref-[email or web address] ?They are usually found in the rectum and sigmoid colon,? TODAY'S VISIT She is agreeable to the 5 year follow up. The procedure was well tolerated. The results were explained and the patient is agreeable to the follow-up interval as stated. The bowel pattern has returned to normal. Education was provided to tell any 1st degree relatives about their findings to be sure that they are screened by age 45. Educated that they will be put on a recall list when it is time for their repeat scope but should they move out of state or away from the hospital they will need to remember along with their primary to repeat the procedure in a timely fashion to avoid any adverse complications. She had suprep and liked this prep. [place] garcias [facility] Medical History (Updated 07/15/23 @ 13:42 by THADDEUS Guo) Bleeding hemorrhoids Osteoarthritis cervical spine Fibromyalgia Surgical History (Updated 07/15/23 @ 10:04 by Chavo Bruner [facility]) H/O colonoscopy History of carpal tunnel surgery S/P cholecystectomy H/O: hysterectomy Family History Father Colorectal cancer Paternal Grandmother Diabetes Mother Hypertension Lung cancer Social History Household Members Other:: , works from home, no exercise Housing: House Patient Tobacco Use Status: Former Tobacco user Tobacco use type: Cigarette e-Cigarette/Vaping Use: Never Used service: No Current occupational status: employed 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 Cognitive needs: No Hearing needs: No Vision needs: Yes Review of Systems Const Denies fatigue, Denies fever(s), Denies night sweats, Denies poor appetite and Denies weight loss ENT Reports Normal hearing present, Denies dental pain, Denies dysphagia, Denies hearing loss, Denies mouth pain, Denies odynophagia, Denies throat swelling, Denies tongue swelling and Reports other (Dentition adequate) Card Reports no additional complaints Resp Reports no additional complaints GI Denies abdominal pain, Denies melena, Denies bloating, Denies hematochezia, Denies constipation, Denies GI cramping, Denies dysphagia, Denies excessive flatus, Denies early satiety, Denies heartburn, Denies diarrhea, Denies nausea, Denies odynophagia, Denies vomiting and Denies hematemesis Skin/Breast Denies pruritus, Denies lesions, Denies rash and Denies jaundice Neuro Reports Normal hearing present and Denies Abnormal speech present Endo Denies fatigue Aller/Immun Denies throat swelling and Denies tongue swelling Physical Exam Vital Signs: Last Vital Signs Pulse 69 07/15/23 09:57 BP 134/68 07/15/23 09:57 BMI result Body Mass Index 42.7 Const General: cooperative, no acute distress, well developed and well groomed Nutritional Appearance: well nourished and obese morbidly obese Orientation/consciousness: oriented to person, oriented to place and oriented to time Limitations: No language barrier HEENT Head: Yes normocephalic and Yes atraumatic Eyes General: appearance normal, both eyes and all related structures Pupils: Equal, round and reactive pupils present Neck Neck: Yes normal visual inspection and Yes no lymphadenopathy Thyroid: Thyroid normal Resp Effort & Inspection: normal respiratory effort and able to speak in complete sentences Auscultation: clear to auscultation bilaterally Cardio Rate: regular rate Rhythm: regular rhythm Heart sounds: Normal, physiologic split S2 sound present Peripheral pulses: radial pulses present and posterior tibial pulses present GI Inspection: No distended, Yes Abdominal panniculus present and Yes obesity Palpation (GI): Soft to palpation, nontender, no guarding, not rigid and No hepatosplenomegaly present Percussion: Yes normal to percussion Auscultation: normal bowel sounds Rectal Exam - Female: deferred Skin General skin exam: no rashes or lesions noted, turgor normal, skin not dry, no jaundice, No spider nevi and no striae Rashes: no rashes Nails: normal Neuro General: oriented to person, oriented to place and oriented to time Cranial nerves: Yes Equal, round and reactive pupils present and Yes Normal hearing present Speech: No Abnormal speech present Extrem General: Yes normal to inspection, No clubbing, No cyanosis and No edema Psych Appearance: grossly normal and well kempt Mental Status: mental status grossly normal Speech and movement: Normal speech and movement present Affect: normal affect Attitude: cooperative Thought process: Normal thought process present and not confabulating Thought content: Normal thought content present Insight: Good insight present (Psych) Judgement: Good judgement present (Psych) Assessment & Plan Assessment & Plan (1) Tubular adenoma of colon: Comment: SESSILE POLYP 2022 repeat in 5 years Code(s): D12.6 - Benign neoplasm of colon, unspecified Plan: She is agreeable to the 5 year follow up. The procedure was well tolerated. The results were explained and the patient is agreeable to the follow-up interval as stated. The bowel pattern has returned to normal. Education was provided to tell any 1st degree relatives about their findings to be sure that they are screened by age 45. Educated that they will be put on a recall list when it is time for their repeat scope but should they move out of state or away from the hospital they will need to remember along with their primary to repeat the procedure in a timely fashion to avoid any adverse complications. She had suprep and liked this prep. [place] p.r.n. Orders: Referrals Colon & Rectal Referral K64.9 - Unspecified hemorrhoids Coding Level of Care Code Est Pt Level 3 (87469) Diagnoses Tubular adenoma of colon D12.6
== END 2023-07-15 11:07 | disposition home or self-care (01) ==
PROVIDERS: PCP Internal Medicine; Visit Provider Nurse Practitioner
DX: D12.6 Benign neoplasm of colon, unspecified (principal)
CPT/HCPCS: 99213

== ENCOUNTER → 2023-07-15 09:53 | Outpatient (BNVA) | payer BC, SELFPAY | PROVIDERS: PCP Internal Medicine; Visit Provider Nurse Practitioner | DX: K64.9 Unspecified hemorrhoids (principal) ==

== ENCOUNTER → 2023-08-24 10:21 | Outpatient (BNVA) | payer MEDICARE, BC, SELFPAY | PROVIDERS: PCP Internal Medicine; Visit Provider Physician Assistant ==

== ENCOUNTER 2023-08-31 11:26 | Outpatient (AMB) | payer BC, SELFPAY ==
[2023-08-31 13:43] VITALS: BP 146/82; PULSE 78; TEMP 36.5; O2SAT 98; BMI 44.6
--- NOTE | 2023-08-31 13:43 | MHC.OFFWIV ---
Intake Vital Signs 08/31/23 13:43 Height 5 ft 4 in Weight 260 lb 2 oz BMI 44.6 BP 146/82 H Blood Pressure Location Rt brachial Position Sitting Pulse 78 Pulse Source Pulse Oximeter Temp 97.7 F Temp Source Oral Pulse Oximetry (%) 98 Oxygen Delivery Method Room Air Intake Visit Reasons: EP-Rt knee pain-Waiting room Intake Note: Pt presents to the office today for c/o right knee pain. Pt states she twisted her leg about 3 weeks ago. Pt states the pain has been there since then but within the past few days it has gotten much worse. Pt states she also has radiating pain going to her hip as well. Patient Tobacco Use Status: Former Tobacco user Allergies aspirin [ASPIRIN] Adverse Reaction (Unknown, Verified 08/31/23 13:58) STOMACH SENSITIVITY ibuprofen [IBUPROFEN] Adverse Reaction (Unknown, Verified 08/31/23 13:58) STOMACH SENSITIVITY Medication List - Last Reconciled 08/31/23 by Yvan Balderrama MD celecoxib 200 mg PO DAILY CPAP As directed olmesartan 5 mg PO DAILY HPI EP-Rt knee pain-Waiting room HPI Details 67-year-old female presents to the office for a sick visit. Patient is complaining of pain in the right knee for the past 3 weeks. The pain is slowly progressing and since the last 2 days is limping while walking. Does not have an injury or fall prior to the onset of symptoms. [facility] Medical History Bleeding hemorrhoids Osteoarthritis cervical spine Fibromyalgia Surgical History History of left knee replacement H/O colonoscopy History of carpal tunnel surgery S/P cholecystectomy H/O: hysterectomy Family History Father Colorectal cancer Paternal Grandmother Diabetes Mother Hypertension Lung cancer Social History (Updated 08/31/23 @ 13:47 by Nicolle Boateng MA) Household Members Other:: , works from home, no exercise Housing: House Alcohol intake: never Patient Tobacco Use Status: Former Tobacco user Tobacco use type: Cigarette e-Cigarette/Vaping Use: Never Used service: No Current occupational status: employed 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 Pain on flexion of the knee. Full extension. Assessment & Plan Assessment & Plan (1) Right knee sprain: Code(s): S83.91XA - Sprain of unspecified site of right knee, initial encounter Plan x-ray images were reviewed by me. minimal effusion, loose body in the popliteal fossa and DJD changes seen. Knee brace applied. Meloxicam given. If symptoms not improved to follow-up with her primary care provider. Coding Level of Care Code Est Pt Level 4 (60671) Diagnoses Right knee sprain S83.91XA
== END 2023-08-31 14:21 | disposition home or self-care (01) ==
PROVIDERS: PCP Internal Medicine; Visit Provider Internal Medicine
DX: S83.91XA Sprain of unspecified site of right knee, initial encounter (principal)
CPT/HCPCS: 99214

== ENCOUNTER 2023-08-31 13:57 | Outpatient (REF) | payer BC, SELFPAY ==
--- NOTE | ~2023-08-31 | XR_ITS ---
EXAMINATION: XR KNEE, RIGHT CLINICAL INFORMATION: Sprain of unspecified site of right knee COMPARISON: 05/31/2021 TECHNIQUE: Four views of the right knee. FINDINGS: Joint effusion present. Mild medial joint space narrowing. Small medial marginal osteophytes XR/XR knee RT 4V IMPRESSION: Mild degenerative changes. Joint effusion.
== END 2023-08-31 13:58 | disposition home or self-care (01) ==
LOC: HO.HMGCX 13:57
PROVIDERS: PCP Internal Medicine; Visit Provider Internal Medicine
DX: S83.91XA Sprain of unspecified site of right knee, initial encounter (principal)
CPT/HCPCS: 73564

== ENCOUNTER 2023-09-09 14:10 | Outpatient (AMB) | payer BC, SELFPAY ==
--- NOTE | 2023-09-09 14:48 | A.OFFPC_ITS ---
Vital Signs 09/09/23 14:49 Height 5 ft 4 in Weight 266 lb BMI 45.7 BP 142/80 H Blood Pressure Location Lt brachial Position Sitting Pulse 78 Pulse Source Pulse Oximeter Pulse Oximetry (%) 97 Oxygen Delivery Method Room Air Intake Visit Reasons: Right Knee Injury Intake Note: Pt is here today for a follow up visit on R knee pain. Pt states that she was seen in the walk in for this and had xray done and the pain is not getting better. Allergies aspirin [ASPIRIN] Adverse Reaction (Unknown, Verified 09/09/23 14:49) STOMACH SENSITIVITY ibuprofen [IBUPROFEN] Adverse Reaction (Unknown, Verified 09/09/23 14:49) STOMACH SENSITIVITY Medication List - Last Reconciled 09/09/23 by Jacqueline Archer MD celecoxib 200 mg PO DAILY CPAP As directed meloxicam 15 mg PO DAILY olmesartan 5 mg PO DAILY Tobacco use date assessed: 09/09/23 HPI Right Knee Injury HPI Details Pt presents the follow-up of persistent R knee pain for 5 weeks after twisting it. Pt took meloxicam and wore a knee brace but the pain is persistent worse when weight-bearing. She denies joint swelling erythema or warmth. The knee x-ray showed small effusion and mild osteoarthritis. Patient gained 25 lb since June. She has been under lot of stress related to her traumatic brain injury. [facility] Medical History Bleeding hemorrhoids Osteoarthritis cervical spine Fibromyalgia Surgical History History of left knee replacement H/O colonoscopy History of carpal tunnel surgery S/P cholecystectomy H/O: hysterectomy Family History Father Colorectal cancer Paternal Grandmother Diabetes Mother Hypertension Lung cancer Social History (Updated 08/31/23 @ 13:47 by Nicolle Boateng MA) Household Members Other:: , works from home, no exercise Housing: House Alcohol intake: never Patient Tobacco Use Status: Former Tobacco user Tobacco use type: Cigarette e-Cigarette/Vaping Use: Never Used service: No Current occupational status: employed 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 How often do you have a drink containing alcohol?: Never 3. How often do you have six or more drinks on one occasion?: Never Total Score: 0 PEGGY-7 AMB Questionnaire PEGGY-7 Date PEGGY - 7 assessed: 06/03/22 Source: Developed by Drs. Jan Araya, Angela Quijano, Maciel Rothman and colleagues, with an educational amy from [employer]. Review of Systems Const All systems reviewed & are unremarkable except as noted in HPI and below Reports no additional complaints Eyes Reports no additional complaints ENT Reports no additional complaints Card Reports no additional complaints Resp Reports no additional complaints GI Reports no additional complaints Reports no additional complaints Physical exam (Primary Care) Vital Signs: Last Vital Signs Pulse 78 09/09/23 14:49 BP 142/80 H 09/09/23 14:49 Pulse Ox 97 09/09/23 14:49 Oxygen Delivery Method Room Air 09/09/23 14:49 BMI result Body Mass Index 45.7 Tobacco/Smoking Status: Tobacco use Status Tobacco use date assessed 09/09/23 09/09/23 14:55 Patient Tobacco Use Status Former Tobacco user 09/09/23 14:55 Tobacco use type Cigarette 09/09/23 14:55 e-Cigarette/Vaping Use Never Used 09/09/23 14:55 Thrive Assessment: Date of Thrive Assessment Date Thrive assessed 06/03/22 09/09/23 14:55 Const General: no acute distress HENMT Face and sinus: Yes normal facial exam Throat: Yes posterior oropharynx normal Resp Effort & Inspection: normal respiratory effort Auscultation: clear to auscultation bilaterally Cardio Rhythm: regular rhythm Heart sounds: S1 normal heart sound present and S2 normal heart sound present Extrem Other: Right knee with decreased range of motion lateral aspect tenderness, no soft tissue swelling erythema or warmth Assessment and Plan Assessment & Plan (1) Injury of meniscus of right knee: Code(s): S83.8X1A - Sprain of other specified parts of right knee, initial encounter Plan: Knee MRI will be obtained to evaluate for meniscus injury. Patient will be referred to PT (2) Obese: Code(s): E66.9 - Obesity, unspecified Plan: Decrease caloric intake increase physical activity discussed with the patient (3) HTN (hypertension): Code(s): I10 - Essential (primary) hypertension Plan: Includes olmesartan to 10 mg a day, patient will have fasting blood work in 1 week and will follow-up in 1 month for blood pressure check (4) Hyperglycemia: Code(s): R73.9 - Hyperglycemia, unspecified Plan: ADA diet increase physical activity weight loss discussed with the patient. A1c will be checked Orders: Orders PT Evaluation and Treatment Today S83.8X1A - Sprain of other specified parts of right knee, initial encounter Comprehensive [place]. Panel Fast 1 Week E66.9 - Obesity, unspecified, I10 - Essential (primary) hypertension, R73.9 - Hyperglycemia, unspecified TSH reflex Free T4 1 Week E66.9 - Obesity, unspecified, I10 - Essential (primary) hypertension, R73.9 - Hyperglycemia, unspecified MR knee RT wo con Today S83.8X1A - Sprain of other specified parts of right knee, initial encounter Hemoglobin A1c 1 Week E66.9 - Obesity, unspecified, I10 - Essential (primary) hypertension, R73.9 - Hyperglycemia, unspecified B Type Natriuretic Peptide 1 Week E66.9 - Obesity, unspecified, I10 - Essential (primary) hypertension, R73.9 - Hyperglycemia, unspecified Coding Level of Care Code Est Pt Level 4 (87211) Diagnoses Injury of meniscus of right knee S83.8X1A Obese E66.9 HTN (hypertension) I10 Hyperglycemia R73.9
[2023-09-09 14:49] VITALS: BP 142/80; PULSE 78; O2SAT 97; BMI 45.7
== END 2023-09-09 15:40 | disposition home or self-care (01) ==
PROVIDERS: PCP Internal Medicine; Visit Provider Internal Medicine
DX: S83.8X1A Sprain of other specified parts of right knee, initial encounter (principal); Z68.42 Body mass index [BMI] 45.0-49.9, adult; E66.9 Obesity, unspecified; I10 Essential (primary) hypertension; R73.9 Hyperglycemia, unspecified
CPT/HCPCS: 99214

== ENCOUNTER 2023-09-15 07:56 | Outpatient (REF) | payer BC, SELFPAY ==
[2023-09-15 08:32] LABS: Estimated Average Glucose 120 mg/dL; Hemoglobin A1c % 5.8 % (<6.0)
[2023-09-15 08:48] LABS: B Type Natriuretic Peptide 61 pg/mL (<100)
[2023-09-15 08:51] LABS: Alanine Aminotransferase 20 U/L (0-31); Albumin Level 3.9 g/dL (3.5-5.0); Alkaline Phosphatase 84 U/L (39-117); Anion Gap 13 (12-20); Aspartate Amino Transferase 13 U/L (5-31); Blood Urea Nitrogen 16 mg/dL (9-16); Calcium 9.8 mg/dL (8.4-10.2); Carbon Dioxide 26 mmol/L (22-29); Chloride 107 mmol/L (96-108); Estimated Glomerular Filt Rate > 60; Glucose Fasting 113 mg/dL (60-99); Potassium 4.3 mmol/L (3.3-5.1); Sodium 142 mmol/L (135-145); Total Protein 7.1 g/dL (6.5-8.0)
[2023-09-15 09:06] LABS: TSH reflex Free T4 1.46 uIU/mL (0.32-4.0)
== END 2023-09-15 07:57 | disposition home or self-care (01) ==
LOC: HO.LAB 07:56
PROVIDERS: PCP Internal Medicine; Visit Provider Internal Medicine
DX: E66.9 Obesity, unspecified (principal); I10 Essential (primary) hypertension; R73.9 Hyperglycemia, unspecified
CPT/HCPCS: 36415; 80053; 83036; 83880; 84443

== ENCOUNTER 2023-09-23 10:17 | Outpatient (AMB) | payer BC, SELFPAY ==
--- NOTE | 2023-09-23 10:18 | A.OFFVIS_ITS ---
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 She heaard about our program from her PCP. Her goal is to lose weight and achieve a healthy lifestyle as well as to improve, if not resolve, obesity related medical conditions, including DEZ, HTN. She reports first being concerned about her weight her whole adult life, highest weight to date was 262. Current weight is 258.4 pounds with a BMI of 44.4. She has tried multiple methods of weight loss including fad diets without permanent results. She lives with her . She is retired now. She states she has a right knee torn meniscus and is being followed by Dr Archer, not yet referred to Ortho. Pt asked me to see if I could see her MRI results and discuss with her. She wakes at:?7 am, and goes to bed at?10 pm. Dinner is at 5 pm. Breakfast: PB and banana on toast, tea AM snack: skip Lunch: pretzels, irish yogurt, coffee w donut or cake PM snack: pretzels Dinner: pasta, cheese, bread, pizza After dinner: pretzels, cake, ice cream, sf pudding, Other snacks: as above Liquids: 20 oz daily, 6 oz coke daily Alcohol/marijuana/tobacco intake: no etoh, no cannabis, no tobacco Exercise: none, GERD score: 14 NIGEL score: 1 ESS score: 17 QOL score: 130 [facility] Medical History Bleeding hemorrhoids Osteoarthritis cervical spine Fibromyalgia Surgical History History of left knee replacement H/O colonoscopy History of carpal tunnel surgery S/P cholecystectomy H/O: hysterectomy Family History Father Colorectal cancer Paternal Grandmother Diabetes Mother Hypertension Lung cancer Household Members Other:: , works from home, no exercise Housing: House Alcohol intake: never Patient Tobacco Use Status: Former Tobacco user Tobacco use type: Cigarette e-Cigarette/Vaping Use: Never Used service: No Current occupational status: employed 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 Cognitive needs: No Hearing needs: No Vision needs: Yes Review of Systems Const All systems reviewed & are unremarkable except as noted in HPI and below Physical Exam Const General: cooperative, healthy appearing and no acute distress Orientation/consciousness: patient oriented x3 HEENT Head: Yes normal to inspection Ears: hearing grossly normal bilaterally General nose exam: Normal external nose present Face and sinus: Yes normal facial exam Eyes General: appearance normal, both eyes and all related structures Resp Effort & Inspection: normal respiratory effort Auscultation: clear to auscultation bilaterally Cardio Rate: regular rate Rhythm: regular rhythm Heart sounds: S1 normal heart sound present and S2 normal heart sound present GI Inspection: Yes normal to inspection, No distended and Yes obesity Palpation (GI): Soft to palpation, nontender and no guarding Auscultation: normal bowel sounds Skin General skin exam: no rashes or lesions noted Neuro General: patient oriented x3 Extrem General: No edema Psych Appearance: grossly normal Mental Status: mental status grossly normal Speech and movement: Normal speech and movement present Affect: normal affect Attitude: cooperative Assessment & Plan Assessment & Plan (1) Morbid obesity: Code(s): E66.01 - Morbid (severe) obesity due to excess calories Plan: This is a?67 yo female who will start our SW program to prepare for bariatric surgery.? Blood work, h pylori , CXR, ECG, Abd US and UGI have been ordered. She is being scheduled for RD and BH initial consultations. She will start SWL classes and watch the first three videos before her next appointment. ? Adequate sleep of 7-8 hours per night discussed, awakening at 7 am and going to bed around 10 pm ? Purchase body composition analyzer scale (Renjudito recommended) and check weight weekly. The best time to do this is first thing in the morning after going to the bathroom. 1. Nutritional counseling: Be sure to careful read the number of scoops per magui e Start with 1 Celebrate Rebuild shakes ([facility] [employer], [id number], fflap), (2 scoops in 20 oz unsweetened almond milk) at 8am-10am 1 protein bar ([employer] bars at [facility] [employer], [employer], fflap) at 11am-1pm. Dinner at 5pm (9 forks of protein and 9 forks of salad/vegetables). Meal to include lean meat (beef, fish, pork, turkey, chicken), cooked vegetables or a salad with olive oil and/or fruits (berries, pears, apples, kiwi). Avoid salt, breads, potatoes, rice, pasta, desserts. Another bar at 7pm-9pm. may have an apple or 1/2 cup fresh berries between the first bar and dinner if you wish Try to drink 64 oz of water daily and avoid soda and juices. ?2. Each shake would be drunk slowly, like coffee in a period of 2 hours. ?3. Cut each bar in 4 pieces and eat each piece in 30 min ?to make each bar last 2 hours. ?4. I emphasized the importance of measuring accurately the food portion and measure it carefully when serving the food on the plate ?5. The meal portions include 9 full-size forks of meat and 9 full-size forks of salad. You always eat the meat portion but you can replace up to half of the forks of salad/vegetables with rice, potatoes or pasta, or a fruit ?if you like. The less you do it the better weight loss will be. ?6. One full-size fork is what can be scooped on the fork without falling aside and not what can be bit with the fork. Use regular forks like those you find in a typical restaurant. ?7.? Please send me weight measurements as soon as possible and then once a week. Always include your diet and exercise plan. Alternatively come weekly at the office for weight checks and send me the measurements. ?8. Exercise counseling: (DO NOT START THE EXERCISE PLAN UNTIL YOU ARE SEEN AND CLEARED BY AN ORTHOPEDIC DOCTOR DUE TO YOUR RIGHT KNEE PROBLEM) Begin by watching a stretching for beginners video. Start slowly and begin to stretch your muscles. You should do this before and after each exercise session to prevent injury. Please join [facility] gym near your home. Ask the wastewater project manager or one of the trainers how to use the machines if you are unfamiliar with them. Start elliptical with a resistance of 2. Increase resistance by 1 every 3 min to your most comfortable resistance with a max resistance of 8. Reduce the resistance by 1 every 3 minutes back down to 2 and repeat cycles for 300 calories. Alternatively, start treadmill with a speed of 3.0 and incline of 0, increasing incline by 1 every 3 minutes to the highest comfortable level (max 6 for now) then decrease in the same fashion. Repeat process to a goal of 300 calories. Goal of 2000 calories burned or more weekly. You may also consider use of the stationary bike. The easiest would be to chose the fat-burn or interval training program on the machine and do this until you reach the 300 calorie goal. Alternatively, you can manually adjust the resistance in a similar fashion as mentioned above, (resistance of 2-8 with a goal speed of 12 mph). Tracking calories is essential. 9. Alternatively start walking outside daily, tracking calories with a goal of 300 calories per day, daily. You can download the jelani [employer] which can track your time, distance and calories while walking outside. You press start in the jelani when you start and then stop when you are finished. 10.? It is important to communicate by text weekly, your weight from your body compositin scale and if you are having any issues 11. Please get labs, EKG and chest X-Ray within 1 week. 12. Discussed and answered all questions regarding?obtained consent to participate in the [facility]?Registry. 13. Please follow the diet plan exactly, without any change. If you do not like something about the plan or you feel hungry, you need to communicate with me so I can help you revise the plan. You should not change the plan yourself. Text me at [phone] 14. Goal is to lose at least 12 pounds in the first month 15. Goal is to lose 10% of your weight before surgery, which is about 25 lbs. Ultimate weight goal: 233 lbs before surgery Patient is morbidly obese and is not considered stable at this time.?I spent a total of 70 minutes reviewing/updating records, examining the patient and counseling the patient on weight management as detailed above. Orders: Orders Complete Blood Count Auto Diff Today E66.01 - Morbid (severe) obesity due to excess calories, I10 - Essential (primary) hypertension, R73.9 - Hyperglycemia, unspecified Zinc Today E66.01 - Morbid (severe) obesity due to excess calories, I10 - Essential (primary) hypertension, R73.9 - Hyperglycemia, unspecified Vitamin A Today E66.01 - Morbid (severe) obesity due to excess calories, I10 - Essential (primary) hypertension, R73.9 - Hyperglycemia, unspecified Ferritin Today E66.01 - Morbid (severe) obesity due to excess calories, I10 - Essential (primary) hypertension, R73.9 - Hyperglycemia, unspecified PTHI Today E66.01 - Morbid (severe) obesity due to excess calories, I10 - Essential (primary) hypertension, R73.9 - Hyperglycemia, unspecified Hemoglobin A1c Today E66.01 - Morbid (severe) obesity due to excess calories, I10 - Essential (primary) hypertension, R73.9 - Hyperglycemia, unspecified FL upper GI w air Today E66.01 - Morbid (severe) obesity due to excess calories, I10 - Essential (primary) hypertension, R73.9 - Hyperglycemia, unspecified Insulin Today E66.01 - Morbid (severe) obesity due to excess calories, I10 - Essential (primary) hypertension, R73.9 - Hyperglycemia, unspecified Lipid Panel Today E66.01 - Morbid (severe) obesity due to excess calories, I10 - Essential (primary) hypertension, R73.9 - Hyperglycemia, unspecified IRON PROFILE Today E66.01 - Morbid (severe) obesity due to excess calories, I10 - Essential (primary) hypertension, R73.9 - Hyperglycemia, unspecified Vitamin B12 and Folate Today E66.01 - Morbid (severe) obesity due to excess calories, I10 - Essential (primary) hypertension, R73.9 - Hyperglycemia, unspecified Comprehensive Met. Panel Today E66.01 - Morbid (severe) obesity due to excess calories, I10 - Essential (primary) hypertension, R73.9 - Hyperglycemia, unspecified Vitamin B1 Today E66.01 - Morbid (severe) obesity due to excess calories, I10 - Essential (primary) hypertension, R73.9 - Hyperglycemia, unspecified C Reactive Protein Today E66.01 - Morbid (severe) obesity due to excess calories, I10 - Essential (primary) hypertension, R73.9 - Hyperglycemia, unspecified TSH reflex Free T4 Today E66.01 - Morbid (severe) obesity due to excess calories, I10 - Essential (primary) hypertension, R73.9 - Hyperglycemia, un specified H Pylori Breath Test Today E66.01 - Morbid (severe) obesity due to excess calories, I10 - Essential (primary) hypertension, R73.9 - Hyperglycemia, unspecified Vitamin D 25-OH Total Today E66.01 - Morbid (severe) obesity due to excess calories, I10 - Essential (primary) hypertension, R73.9 - Hyperglycemia, unspecified US abdomen comp w elastography Today E66.01 - Morbid (severe) obesity due to excess calories, I10 - Essential (primary) hypertension, R73.9 - Hyperglycemia, unspecified XR chest 2V Today E66.01 - Morbid (severe) obesity due to excess calories, I10 - Essential (primary) hypertension, R73.9 - Hyperglycemia, unspecified ECG 12 lead EKG Today E66.01 - Morbid (severe) obesity due to excess calories, I10 - Essential (primary) hypertension, R73.9 - Hyperglycemia, unspecified Referrals Nutrition/Dietitian Referral E66.01 - Morbid (severe) obesity due to excess calories, I10 - Essential (primary) hypertension, R73.9 - Hyperglycemia, unspecified Behavioral Health Referral E66.01 - Morbid (severe) obesity due to excess calories, I10 - Essential (primary) hypertension, R73.9 - Hyperglycemia, unspecified Medications: Changed From olmesartan 5 mg PO DAILY 90 tabs 3RF To olmesartan 10 mg PO DAILY Coding Level of Care Code New Pt Level 5 (35630) Diagnoses Morbid obesity E66.01 Time Spent (min) 70
[2023-09-23 10:38] VITALS: BP 144/79; PULSE 98; TEMP 36.3; O2SAT 96; BMI 44.3
== END 2023-09-23 13:09 | disposition home or self-care (01) ==
PROVIDERS: PCP Internal Medicine; Referring Provider Internal Medicine; Visit Provider Physician Assistant Surgical
DX: E66.01 Morbid (severe) obesity due to excess calories (principal); Z68.41 Body mass index [BMI] 40.0-44.9, adult
CPT/HCPCS: 99205

== ENCOUNTER → 2023-09-23 10:17 | Outpatient (BNVA) | payer BC, SELFPAY | PROVIDERS: PCP Internal Medicine; Visit Provider Physician Assistant Surgical | DX: E66.01 Morbid (severe) obesity due to excess calories (principal); I10 Essential (primary) hypertension; R73.9 Hyperglycemia, unspecified; Z68.41 Body mass index [BMI] 40.0-44.9, adult | CPT/HCPCS: 99202 ==

== ENCOUNTER 2023-10-01 08:02 | Outpatient (REF) | payer BC, SELFPAY ==
--- NOTE | ~2023-10-01 | XR_ITS ---
EXAMINATION: XR CHEST CLINICAL INFORMATION: E66.01 - Morbid (severe) obesity due to excess calories Additional Information: COMPARISON: Prior chest x-ray April 2013. TECHNIQUE: 2 views of the chest were obtained. FINDINGS: No significant abnormality is noted involving the heart, lungs, mediastinum, bony thorax or soft tissues. XR/XR chest 2V IMPRESSION: Unremarkable examination.
--- NOTE | 2023-10-01 08:15 | ECG_ITS ---
Test Reason : E66.01 Blood Pressure : / mmHG Vent. Rate : 079 BPM Atrial Rate : 079 BPM P-R Int : 146 ms QRS Dur : 084 ms QT Int : 364 ms P-R-T Axes : 013 -09 009 degrees QTc Int : 417 ms Normal sinus rhythm Nonspecific ST abnormality Abnormal ECG When compared with ECG of 17-APR-2013 07:37, No significant changes seen Referred By: Sal Espinal Electronically Signed By:CRISTOFER URENA MD
[2023-10-01 08:25] LABS: MANUAL DIFF FLAG NO
[2023-10-01 09:10] LABS: Basophils Absolute Auto 0.1 X10*3/uL (0.0-0.2); Eosinophils Absolute Auto 0.1 X10*3/uL (0.0-0.4); Eosinophils Percent Auto 2.2 % (0-4); Hematocrit 45.7 % (37.0-47.0); Lymphocytes Absolute Auto 1.5 X10*3/uL (1.2-4.9); Lymphocytes Percent Auto 25.9 % (20-40); Mean Corpuscular HGB Conc 32.8 g/dl (31.0-35.0); Mean Corpuscular Hemoglobin 28.4 pg (27.0-33.0); Mean Corpuscular Volume 86.4 fL (80.0-98.0); Mean Platelet Volume 10.9 fL (9.4-12.3); Monocytes Absolute Auto 0.5 X10*3/uL (0.1-1.2); Monocytes Percent Auto 8.2 % (2-11); Neutrophils Absolute Auto 3.7 x10*3/uL (2.0-8.3); Neutrophils Percent Auto 62.7 % (45-73); Platelet Count 302 X10*3/uL (160-400); Red Blood Count 5.29 X10*6/uL (4.20-5.50); White Blood Count 5.9 X10*3/uL (4.8-10.8)
[2023-10-01 09:13] LABS: Estimated Average Glucose 120 mg/dL; Hemoglobin A1c % 5.8 % (<6.0)
[2023-10-01 09:39] LABS: Alanine Aminotransferase 24 U/L (0-31); Albumin Level 4.4 g/dL (3.5-5.0); Alkaline Phosphatase 83 U/L (39-117); Anion Gap 16 (12-20); Aspartate Amino Transferase 23 U/L (5-31); Bilirubin Total 1.4 mg/dL (0.0-1.0); Blood Urea Nitrogen 23 mg/dL (9-16); C Reactive Protein 0.78 mg/dL (< or = 0.50); Calcium 10.6 mg/dL (8.4-10.2); Carbon Dioxide 23 mmol/L (22-29); Chloride 103 mmol/L (96-108); Cholesterol 172 mg/dL (<200); Estimated Glomerular Filt Rate > 60; Glucose Random 132 mg/dL (60-115); HDL Cholesterol 57 mg/dL (>40); Iron 107 mcg/dL (30-160); LDL Cholesterol Calculated 89 mg/dL (<100); Percent Iron Saturation 32 % (15-50); Sodium 138 mmol/L (135-145); Total Iron Binding Capacity 339 mcg/dL (228-428); Total Protein 8.1 g/dL (6.5-8.0); Triglycerides 133 mg/dL (<150); Unsaturated Iron Binding 232 ug/dL
[2023-10-01 10:00] LABS: Ferritin 133 ng/mL (10-250); Insulin 17 uU/mL (2-29); TSH reflex Free T4 1.07 uIU/mL (0.32-4.0); Vitamin D 25-OH Total 12.8 ng/mL (>30)
[2023-10-01 10:04] LABS: Folate 13.7 ng/mL (> or = 4.0); Vitamin B12 364 pg/mL (200-900)
[2023-10-04 12:18] LABS: Vitamin B1 11 nmol/L (8-30)
[2023-10-05 15:43] LABS: Zinc 71 mcg/dL (60-130)
[2023-10-06 04:13] LABS: Vitamin A 54 mcg/dL (38-98)
== END 2023-10-01 08:03 | disposition home or self-care (01) ==
LOC: HO.LAB 08:02
PROVIDERS: PCP Internal Medicine; Visit Provider Physician Assistant Surgical
DX: I10 Essential (primary) hypertension (principal); R73.9 Hyperglycemia, unspecified; E66.01 Morbid (severe) obesity due to excess calories
CPT/HCPCS: 36415; 71046; 80053; 80061; 82306; 82607; 82728; 82746; 83036; 83525; 83540; 84425; 84443; 84590; 84630; 85025; 86140; 93005

== ENCOUNTER 2023-10-06 08:49 | Outpatient (REF) | payer MEDICARE, BC, SELFPAY ==
[2023-10-07 15:30] LABS: H Pylori Breath Test Negative (Negative)
== END 2023-10-06 08:50 | disposition home or self-care (01) ==
LOC: CF 08:49
PROVIDERS: PCP Internal Medicine; Visit Provider Physician Assistant Surgical
DX: E66.01 Morbid (severe) obesity due to excess calories (principal); I10 Essential (primary) hypertension; R73.9 Hyperglycemia, unspecified
CPT/HCPCS: 83013; 97802; 99211

== ENCOUNTER 2023-10-06 12:03 | Outpatient (AMB) | payer MEDICARE, SELFPAY ==
--- NOTE | 2023-10-06 11:34 | A.OFFVIS_ITS ---
Intake Intake Visit Reasons: (TV) Initial Nutrition SWL Allergies aspirin [ASPIRIN] Adverse Reaction (Unknown, Verified 09/21/23 10:33) STOMACH SENSITIVITY ibuprofen [IBUPROFEN] Adverse Reaction (Unknown, Verified 09/21/23 10:33) STOMACH SENSITIVITY HPI Nutrition Presentation Reason for consult elevated BMI Diet Assmnt Details She shares she is using her bars and shakes , although she does not like the ingredient list. SHe prefers to eat very low processed foods and is uncomfortable with her current bars/shakes. I gave her some recommendations for products that may align with her values better. She shares she has always been on off eating healthy. goes through phases in life she eats minimally processed foods and other phases she tends to eat more processed foods. Last year met with PCP who recommended she join our program. she has always been interested in M[facility]. didn't realize we opened the program up again. At the moment, she is still interested in SWL. SWL Online classes:01/07 Dietary counseling reduction Who buys your food self Who prepares/cooks your food self Meal frequency regular: breakfast, lunch and dinner and irregular: snacks Lifestyle Food frequency Dairy: several times weekly (yogurt, makes her own almond milk ), Fruit: daily, Vegetables: daily, Grains/pasta/breads/cereal (carbs): daily, Meats/poultry/fish (protein): daily (minimal beef or seafood ), Meat substitutes/nuts/seeds/legumes: daily, Restaurants/fast foods: occasionally, Water: daily, Soda: never, Juice: never and Coffee: daily (2c daily ) Diagnosis Nutrition problem #1 overweight/obesity As related to (etiology) #1 excess energy intake and physical inactivity As evidenced by (sign/symptom) #1 high BMI Monitoring/Goals Nutrition problem monitoring total energy intake, level of knowledge/skill, total PRO intake, total CHO intake and weight Outcome progress progressing Learning/Education Readiness to learn excellent Stages of change action Educational materials provided Yes Most Recent Diabetes Results: Cholesterol 172 mg/dL (<200) 10/01/23 HDL Cholesterol 57 mg/dL (>40) 10/01/23 Triglycerides 133 mg/dL (<150) 10/01/23 Creatinine 0.91 mg/dL (0.5-1.4) 10/01/23 Blood Urea Nitrogen 23 mg/dL (9-16) H 10/01/23 Sodium 138 mmol/L (135-145) 10/01/23 Potassium 4.0 mmol/L (3.3-5.1) 10/01/23 Chloride 103 mmol/L (96-108) 10/01/23 Carbon Dioxide 23 mmol/L (22-29) 10/01/23 Calcium 10.6 mg/dL (8.4-10.2) H 10/01/23 AST 23 U/L (5-31) 10/01/23 ALT 24 U/L (0-31) 10/01/23 Total Protein 8.1 g/dL (6.5-8.0) H 10/01/23 Albumin 4.4 g/dL (3.5-5.0) 10/01/23 [facility] Medical History Bleeding hemorrhoids Osteoarthritis cervical spine Fibromyalgia Surgical History (Updated 09/23/23 @ 13:12 by ABNER Vela) History of left knee replacement H/O colonoscopy History of carpal tunnel surgery S/P cholecystectomy H/O: hysterectomy Family History Father Colorectal cancer Paternal Grandmother Diabetes Mother Hypertension Lung cancer Social History Household Members Other:: , works from home, no exercise Housing: House Alcohol intake: never Patient Tobacco Use Status: Former Tobacco user Tobacco use type: Cigarette e-Cigarette/Vaping Use: Never Used service: No Current occupational status: employed 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 will likely be cleared and will be a good candidate Telehealth Telehealth Location of provider rendering services: practice address Location of patient: address on file Patient Identification confirmed using: Name, : Yes Telehealth method: video Patient verbally consented to treatment: Yes Patient verbally consented to billing insurance company: Yes Patient informed of any privacy concerns related to visit: Yes Minutes spent on Phone/Video with Pt.: 25 Coding Level of Care Code Nutr Indiv Intake (67890) Diagnoses Morbid (severe) obesity due to excess calories E66.01 Time Spent (min) 25
== END 2023-10-06 12:59 | disposition home or self-care (01) ==
LOC: HO.HBS 12:03
PROVIDERS: PCP Internal Medicine; Visit Provider Dietitian, Registered
DX: E66.01 Morbid (severe) obesity due to excess calories (principal)

== ENCOUNTER 2023-10-09 10:58 | Outpatient (AMB) | payer MEDICARE, SELFPAY ==
--- NOTE | 2023-10-09 11:25 | A.OFFPC_ITS ---
Vital Signs 10/09/23 11:28 Height 5 ft 4 in Weight 254 lb BMI 43.6 BP 124/72 Blood Pressure Location Lt brachial Position Sitting Pulse 84 Pulse Source Pulse Oximeter Pulse Oximetry (%) 97 Oxygen Delivery Method Room Air Intake Visit Reasons: 1 Month F/U Intake Note: Pt is here today for 1 month follow up visit. Pt states that her insurance changed to Medicare and a secondary. Allergies aspirin [ASPIRIN] Adverse Reaction (Unknown, Verified 10/09/23 11:31) STOMACH SENSITIVITY ibuprofen [IBUPROFEN] Adverse Reaction (Unknown, Verified 10/09/23 11:31) STOMACH SENSITIVITY Medication List - Last Reconciled 10/09/23 by Jacqueline Archer MD celecoxib 200 mg PO DAILY cholecalciferol (vitamin D3) 125 mcg PO DAILY 90 days CPAP As directed cyanocobalamin (vitamin B-12) 250 mcg PO DAILY 90 days olmesartan 10 mg PO DAILY Tobacco use date assessed: 09/09/23 Dental Screening Dental Screen Date: 10/09/23 Did you have a dental visit in the last 12 months?: Yes Did you have a dental problem in the last 6 months where you did not have access to dental care?: No Was dental information given to patient?: Patient has dentist HPI 1 Month F/U HPI Details Pt is for f/u HTN, better on Olmesartan. Pt is in weight management program and lost 10 lbs. She will see Ortho for R knee meniscus tear/OA/e ffusion. She has been walking 10 min/day. [facility] Medical History (Updated 10/09/23 @ 12:14 by Jacqueline Archer MD) Bleeding hemorrhoids Osteoarthritis cervical spine Fibromyalgia Surgical History (Updated 09/23/23 @ 13:12 by ABNER Vela) History of left knee replacement H/O colonoscopy History of carpal tunnel surgery S/P cholecystectomy H/O: hysterectomy Family History Father Colorectal cancer Paternal Grandmother Diabetes Mother Hypertension Lung cancer Social History Household Members Other:: , works from home, no exercise Housing: House Alcohol intake: never Patient Tobacco Use Status: Former Tobacco user Tobacco use type: Cigarette e-Cigarette/Vaping Use: Never Used service: No Current occupational status: employed 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 Cognitive needs: No Hearing needs: No Vision needs: Yes Questionnaire Thrive Questionnaire Date Thrive assessed: 06/03/22 PEGGY-7 AMB Questionnaire PEGGY-7 Date PEGGY - 7 assessed: 06/03/22 Feeling nervous, anxious, or on edge: 1 = Several days Not being able to stop or control worryin = Nearly every day Worrying too much about different things: 3 = Nearly every day Trouble relaxin = Not at all Being so restless that it is hard to sit still: 0 = Not at all Becoming easily annoyed or irritable: 2 = More than half the days Feeling afraid as if something awful might happen: 2 = More than half the days Total PEGGY-7 score (0-4 normal; 5-9 mild; 10-14 moderate; 15-21 severe): 11 Source: Developed by Drs. Jan Araya, Angela Quijano, Maciel Rothman and colleagues, with an educational amy from [employer]. Review of Systems Const All systems reviewed & are unremarkable except as noted in HPI and below Reports no additional complaints Eyes Reports no additional complaints ENT Reports no additional complaints Card Reports no additional complaints Resp Reports no additional complaints GI Reports no additional complaints Reports no additional complaints Physical exam (Primary Care) Vital Signs: Last Vital Signs Pulse 84 10/09/23 11:28 BP 124/72 10/09/23 11:28 Pulse Ox 97 10/09/23 11:28 Oxygen Delivery Method Room Air 10/09/23 11:28 BMI result Body Mass Index 43.6 Tobacco/Smoking Status: Tobacco use Status Tobacco use date assessed 09/09/23 10/09/23 11:26 Patient Tobacco Use Status Former Tobacco user 10/09/23 11:26 Tobacco use type Cigarette 10/09/23 11:26 e-Cigarette/Vaping Use Never Used 10/09/23 11:26 Thrive Assessment: Date of Thrive Assessment Date Thrive assessed 06/03/22 10/09/23 11:26 Const General: no acute distress HENMT Face and sinus: Yes normal facial exam Neck Neck: Yes supple Resp Effort & Inspection: normal respiratory effort Auscultation: clear to auscultation bilaterally Cardio Rhythm: regular rhythm Heart sounds: S1 normal heart sound present and S2 normal heart sound present GI Inspection: Yes normal to inspection Palpation (GI): Soft to palpation Assessment and Plan Assessment & Plan (1) Morbid obesity: Comment: in weight management program Code(s): E66.01 - Morbid (severe) obesity due to excess calories (2) HTN (hypertension): Code(s): I10 - Essential (primary) hypertension Plan: cont Olmesartan (3) Hyperglycemia: Code(s): R73.9 - Hyperglycemia, unspecified Plan: A1C 5.8, ADA diet, exercise, weight loss, f/u 4 months Orders: Orders Lipid Panel 4 Months E66.01 - Morbid (severe) obesity due to excess calories, I10 - Essential (primary) hypertension, R73.9 - Hyperglycemia, unspecified Microalbumin, Random (w Creat) 4 Months E66.01 - Morbid (severe) obesity due to excess calories, I10 - Essential (primary) hypertension, R73.9 - Hyperglycemia, unspecified Vitamin D 25-OH Total 4 Months E66.01 - Morbid (severe) obesity due to excess calories, I10 - Essential (primary) hypertension, R73.9 - Hyperglycemia, unspecified Comprehensive [place]. Panel Fast 4 Months E66.01 - Morbid (severe) obesity due to excess calories, I10 - Essential (primary) hypertension, R73.9 - Hyperglycemia, unspecified Hemoglobin A1c 4 Months E66.01 - Morbid (severe) obesity due to excess calories, I10 - Essential (primary) hypertension, R73.9 - Hyperglycemia, unspecified Complete Blood Count Auto Diff 4 Months E66.01 - Morbid (severe) obesity due to excess calories, I10 - Essential (primary) hypertension, R73.9 - Hyperglycemia, unspecified Coding Level of Care Code Est Pt Level 4 (27139) Diagnoses Morbid obesity E66.01 HTN (hypertension) I10 Hyperglycemia R73.9
[2023-10-09 11:28] VITALS: BP 124/72; PULSE 84; O2SAT 97; BMI 43.6
== END 2023-10-09 12:15 | disposition home or self-care (01) ==
PROVIDERS: PCP Internal Medicine; Visit Provider Internal Medicine
DX: I10 Essential (primary) hypertension (principal); R73.9 Hyperglycemia, unspecified; E66.01 Morbid (severe) obesity due to excess calories; Z68.41 Body mass index [BMI] 40.0-44.9, adult
CPT/HCPCS: 99214

== ENCOUNTER 2023-10-16 14:42 | Outpatient (REF) | payer MEDICARE, SELFPAY | END 2023-10-16 14:43 | disposition home or self-care (01) | LOC: HO.HOSX 14:42 | PROVIDERS: Visit Provider Physician Assistant | DX: Z13.89 Encounter for screening for other disorder (principal) ==

== ENCOUNTER 2023-10-21 11:15 | Outpatient (AMB) | payer MEDICARE, SELFPAY ==
[2023-10-21 09:26] VITALS: BMI 43.0
--- NOTE | 2023-10-21 09:26 | A.OFFVIS_ITS ---
Intake VS Expanded 10/21/23 09:26 Height 5 ft 4 in Weight 250 lb 6.4 oz BMI 43.0 Body Fat % 59.7 Body Fat Mass 149.4 Fat Free Mass 101 Visceral Fat Rating 24 Body Water % 27.6 Body Water Mass 69.1 Muscle Mass/Score 95 Basal Metabolic Rate/Score 1,352 Intake Visit Reasons: VIDEO F/U SWL Allergies aspirin [ASPIRIN] Adverse Reaction (Unknown, Verified 10/09/23 11:31) STOMACH SENSITIVITY ibuprofen [IBUPROFEN] Adverse Reaction (Unknown, Verified 10/09/23 11:31) STOMACH SENSITIVITY HPI HPI Comments History of Present Illness Details The patient is a pleasant 68 year old female who returns to the clinic for pre-operative surgical weight loss management. They were last seen in the office on 09/23/2023, recorded weight at that time was 258.4 pounds, with a BMI of 44.4. Today's weight is 250.4 pounds and BMI is 43. There has been a weight loss of 8 pounds since initiating the surgical weight loss program on 09/23/2023 with a total body weight loss of 3 %. Pre op work up completed as follows: SWL classes:? []/8 BH appts: 10/21/2023 ? ? RD appts: 10/28/2023 Labs: 10/01/2023-low D, B12: 364 H. pylori: 10/06/2023-negative CXR: 10/01/2023-no active disease EK10/01/2023-nonspecific T wave abnormality ABD U/S: 10/28/2023 UGI: 12/15/2023 The patient reports she is recovering from Covid. She has had to put her meal plan on hold for a few days due to covid. The patient does have a body composition scale. They also have been communicating weekly. Current meal plan includes: 1 Celebrate Rebuild shakes, (2 scoops in 20 oz unsweetened almond milk) at 8am- 10am 1 protein bar (Celebrate bars) at 11am-1 pm. Dinner at 5pm (9 forks of protein and 9 forks of salad/vegetables). Another bar at 7pm-9pm. may have an apple or 1/2 cup fresh berries between the first bar and dinner if you wish Drinking 20 oz of water Current exercise plan includes: Has not yet gone to Ortho due to right meniscus pain, rescheduled for 11/12/23. She was seen by her PCP who suggested a recumbent bike. [facility] Medical History Bleeding hemorrhoids Osteoarthritis cervical spine Fibromyalgia Surgical History History of left knee replacement H/O colonoscopy History of carpal tunnel surgery S/P cholecystectomy H/O: hysterectomy Family History Father Colorectal cancer Paternal Grandmother Diabetes Mother Hypertension Lung cancer Social History Household Members Other:: , works from home, no exercise Housing: House Alcohol intake: never Patient Tobacco Use Status: Former Tobacco user Tobacco use type: Cigarette e-Cigarette/Vaping Use: Never Used service: No Current occupational status: employed 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 She has been strongly encouraged increased water intake as she has been running dehydrated. She has been unable to exercise due to her knee pain and is scheduled to follow-up with Ortho on 11/12/2023. We discussed purchasing a recumbent bike for home. Return to clinic 3 weeks. Telehealth Telehealth Location of provider rendering services: practice address Location of patient: address on file Patient Identification confirmed using: Name, : Yes Telehealth method: voice only Patient verbally consented to treatment: Yes Patient verbally consented to billing insurance company: Yes Patient informed of any privacy concerns related to visit: Yes Minutes spent on Phone/Video with Pt.: 18 Coding Level of Care Code Tele Est Pt Level 3 (74897) Diagnoses Morbid obesity E66.01 Time Spent (min) 20
== END 2023-10-21 11:22 | disposition home or self-care (01) ==
LOC: HO.HBS 11:15
PROVIDERS: PCP Internal Medicine; Visit Provider Physician Assistant Surgical
DX: E66.01 Morbid (severe) obesity due to excess calories (principal); Z68.41 Body mass index [BMI] 40.0-44.9, adult
CPT/HCPCS: 99442

== ENCOUNTER → 2023-10-21 11:15 | Outpatient (BNVA) | payer MEDICARE, SELFPAY | PROVIDERS: PCP Internal Medicine; Visit Provider Physician Assistant Surgical | DX: E66.01 Morbid (severe) obesity due to excess calories (principal) ==

== ENCOUNTER 2023-10-21 15:14 | Outpatient (AMB) | payer MEDICARE, SELFPAY ==
--- NOTE | 2023-10-21 14:20 | MHC.WMTHER ---
Intake Intake Visit Reasons: VIDEO BH Intake Allergies aspirin [ASPIRIN] Adverse Reaction (Unknown, Verified 10/09/23 11:31) STOMACH SENSITIVITY ibuprofen [IBUPROFEN] Adverse Reaction (Unknown, Verified 10/09/23 11:31) STOMACH SENSITIVITY PFSH Medical History Bleeding hemorrhoids Osteoarthritis cervical spine Fibromyalgia Surgical History History of left knee replacement H/O colonoscopy History of carpal tunnel surgery S/P cholecystectomy H/O: hysterectomy Family History Father Colorectal cancer Paternal Grandmother Diabetes Mother Hypertension Lung cancer Social History Household Members Other:: , works from home, no exercise Housing: House Alcohol intake: never Patient Tobacco Use Status: Former Tobacco user Tobacco use type: Cigarette e-Cigarette/Vaping Use: Never Used service: No Current occupational status: employed 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 Pt has no mental health history and has never been in therapy. She no history of problems with drugs or alcohol. She later reported a history of depression when she is not taking care of herself , she will isolate, cry, and feel down. She stated that at one point she was on medication when she was younger for depression (at 39 and then 51). Presenting Concerns Referral Source provider Reason for referral weight loss surgery evaluation Precipitating Event obesity Living Situation Current Living Situation Own At risk of losing current housing? No Satisfied with current living situation? Yes Comments Patient lives with her . Food/Weight/Diet Expectations of change weight loss and maintenance History/Relationship with food Patient stated that she will go from on extreme to another (eating very healthy to eating everything and anything). She would eat sweets and carbs which she feels have been very addicting to her. She struggles with sugar and even fruits that will send her spiraling. Pt stated that she just cannot have just one of something. History/Relationship with weight Pt stated that she started to struggle with her weight after having her 4 children (in 5 years). History/Relationship with dieting Pt stated that she has been on many different diets and always has lost weight very easily but then something will happen after loosing 50lbs that will slowly derail. Binge Eating Do you frequently eat large amounts of food in short periods of time, not feeling physically hungry? No Do you feel out of control when you eat a large amount of food in a short period of time? Yes Do you eat large amounts of food rapidly and typically alone? No Night Eating Do you wake up at least once during the night to eat? No If you wake up in the night, do you find that it is necessary to eat something in order to fall back asleep? No Do you have little or no appetite in the morning and feel very hungry in the evening, often overeating between dinner and when you go to bed? No Social History Family history and relationship Pt is and has four adult children and 8 granchildren. Patient has one sister. Parental/Familial financial services counselor obligations none Developmental history and status no issues Social support daughters Cultural/Ethnic information Legal Involvement and History Current or historical involvement with the legal system? none Education Highest grade completed high school diploma Preferred learning style Auditory, Verbal, Written, Learn by doing and Visual Currently enrolled in educational program? No Interested in further educational program? No Educational Interests/Skills Pt is retired. Employment Employment Status Retired Meaningful activities walking outside Financial Situation Describe current financial situation Comfortable Financial assistance? None Service Service? No Mental Health and Addiction Treatment Current/Past substance abuse? No Current/Past addictive behavior concerns? No Pain Screening Current pain? Yes Medications Is the patient compliant with medications? Yes Does the patient have Loz[place] Guardian in place? Not applicable Does the patient use complimentary health approaches? No Trauma/Abuse History History of trauma? No Questionnaires Binge Eating Scale Group 1 A. I don't feel self-conscious about my wt. or body size when I'm with others. B. I feel concerned about how I look to others, but it normally does not make me fell disappointed with myself C. I do get self-conscious about my appearance and wt. which makes me feel disappointed in myself. D. I feel very self-conscious about my wt. and frequently I feel intense shame and disgust for myself. I try to avoid social contacts because of my self-consciousness. Response Group 1: D Group 2 A. I don't have any difficulty eating slowly in the proper manner. B. Although I seem to gobble down foods, I don't end up feeling stuffed because of eating to much. C. At times, I tend to eat quickly and then, I feel uncomfortably full afterwards. D. I have the habit of bolting down my food, without really chewing it. When this happens I usually feel uncomfortably stuffed because I've eaten to much. Response Group 2: A Group 3 A. I feel capable to control my eating urges when I want to. B. I feel like I have failed to control my eating more than the average person. C. I feel utterly helpless when it comes to feeling in control of my eating urges. D. Because I feel so helpless about controlling my eating I have become very desperate about trying to get control. Response Group 3: B Group 4 A. I don't have the habit of eating when I'm bored. B. I sometimes eat when I'm bored, but often I'm able to get busy and get my mind off food. C. I have a regular habit of eating when I'm bored, but occasionally, I can use some other activity to get my mind off eating. D. I have a strong habit of eating when I'm bored. Nothing seems to help me breath the habit. Response Group 4: D Group 5 A. I'm usually physically hungry when I eat something. B. Occasionally, I eat something on impulse even though I really am not hungry. C. I have the regular habit of eating foods, that I might not really enjoy, to satisfy a hungry feeling even though physically, I don't need the food. D. Although I'm not physically hungry, I get a hungry feeling in my mouth that only seems to be satisfied when I eat a food, like sandwich, that fills my mouth. Sometimes, when I eat the food to satisfy my mouth hunger, I then spit the food out so I won't gain weight. Response Group 5: C Group 6 A. I don't feel any guilt or self-hate after I overeat. B. After I overeat, occasionally I feel guilt or self-hate. C. Almost all the time I experience strong guilt or self-hate after I overeat. Response Group 6: C Group 7 A. I don't lose total control of my eating when dieting even after periods when I overeat. B. Sometimes when I eat a forbidden food on a diet, I feel like I blew it and eat even more. C. Frequently, I have the habit of saying to myself, I've blown it now, why not go all the way, when I overeat on a diet. When that happens I eat more. D. I have a regular habit of starting a strict diets for myself but I break the diets by going on an eating binge. My life seems to be either a feast or famine. Response Group 7: D Group 8 A. I rarely eat so much food that I feel uncomfortably stuffed afterwards. B. Usually about once a month, I each such a quantity of food, I end up feeling very stuffed. C. I have regular periods during the month when I eat large amounts of food, either at mealtime or at snacks. D. I eat so much food that I regularly feel quite uncomfortable after eating and sometimes a bit nauseous. Response Group 8: D Group 9 A. My level of calorie intake does not go up very high or go down very low on a regular basis. B. Sometimes after I overeat, I will try to reduce my caloric intake to almost nothing to compensate for the excess calories I've eaten. C. I have a regular habit of overeating during the night. It seems that my routine is not to be hungry in the morning but overeat in the evening. D. In my adult years, I have had week-long periods where I practically starve myself. This follows periods when I overeat. It seems I live a life of either feast or famine. Response Group 9: D Group 10 A. I usually am able to stop eating when I want to. I know when enough is enough. B. Every so often, I experience a compulsion to eat which I can't seem to control. C. Frequently, I experience strong urges to eat which I seem unable to control, but at other times I can control my eating urges. D. I feel incapable of controlling urges to eat. I have a fear of not being able to stop eating voluntarily. Response Group 10: A Group 11 A. I don't have any problem stopping eating when I feel full. B. I usually can stop eating when I feel full but occasionally overeat leaving me feeling uncomfortably stuffed. C. I have a problem stopping eating once I start and usually I feel uncomfortably stuffed after I eat a meal. D. Because I have a problem not being able to stop eating when I want, I sometimes have to induce vomiting to relieve my stuffed feeling. Response Group 11: B Group 12 A. I seem to eat just as much when I'm with others, Family social gatherings as when I'm by myself. B. Sometimes, when I'm with other persons, I don't eat as much as I want to eat because I'm self-conscious about my eating. C. Frequently, I eat only a small amount of food when others are present, because I'm very embarrassed about my eating. D. I feel so ashamed about overeating that I pick times to overeat when I know no one will see me. I feel like a closet eater. Response Group 12: A Group 13 A. I eat three meals a day with only an occasional between meal snack. B. I eat 3 meals a day, but I also normally snack between meals. C. When I am snacking heavily, I get in the habit of skipping regular meals. D. There are regular periods when I seem to be continually eating, with no planned meals. Response Group 13: B Group 14 A. I don't think much about trying to control unwanted eating urges. B. At least some of the time, I feel my thoughts are pre-occupied with trying to control my eating urges. C. I feel that frequently I spend much time thinking about how much I ate or about trying not to eat anymore. D. It seems to me that most of my waking hours are pre-occupied by thoughts about eating or not eating. I feel like I'm constantly struggling not to eat. Response Group 14: C Group 15 A. I don't think about food a great deal. B. I have strong craving for food but they last only for brief periods of time. C. I have days when I can't seem to think about anything else but food. D. Most of my days seem to be pre-occupied with thoughts about food. I feel like I live to eat. Response Group 15: C Group 16 A. I usually know whether or not I'm physically hungry. I take the right portion of food to satisfy me. B. Occasionally, I feel uncertain about knowing whether or not I'm physically hungry. A these times it's hard to know how much food I should take to satisfy me. C. Even though I might know how many calories I should eat, I don't have any idea what is a normal amount of food for me. Response Group 16: B Binge Eating Score: 27 Score less than 17 Minimal Risk Score between 18-26 Moderate Risk Score between 27-46 High Risk Assessment & Plan Assessment & Plan (1) Depression, unspecified: Code(s): F32.A - Depression, unspecified (2) Morbid obesity: Code(s): E66.01 - Morbid (severe) obesity due to excess calories Plan Patient reported that she often struggles with some depression when she is not dieting. She reported being on diets for over 30 years now. She is often derailed by her strong cravings toward sugar, mostly baked goods or other sweets. Even fruit can sometimes send her into a relapse to then eat more and more sugar. Pt identified that she has struggled with sugar since she was a young child. Also might have some binge eating tendencies. She is aware that she will have to continue staying away from those foods after surgery as well. She will be seen again and is cleared for surgery when ready. Telehealth Telehealth Location of provider rendering services: practice address Location of patient: address on file Patient Identification confirmed using: Name, : Yes Telehealth method: video Patient verbally consented to treatment: Yes Patient verbally consented to billing insurance company: Yes Patient informed of any privacy concerns related to visit: Yes Minutes spent on Phone/Video with Pt.: 45 Coding Level of Care Code Tele Psy Diag Eval (33793) Diagnoses Depression, unspecified F32.A Morbid obesity E66.01 Time Spent (min) 45
== END 2023-10-21 16:31 | disposition home or self-care (01) ==
LOC: HO.HBST 15:14
PROVIDERS: PCP Internal Medicine; Visit Provider Counselor Mental Health
DX: F33.1 Major depressive disorder, recurrent, moderate (principal); E66.01 Morbid (severe) obesity due to excess calories
CPT/HCPCS: 90791

== ENCOUNTER 2023-11-03 14:45 | Outpatient (AMB) | payer MEDICARE, SELFPAY ==
--- NOTE | 2023-11-03 14:59 | MHC.AMNUTRGE ---
Intake VS Expanded 11/03/23 15:42 Height 5 ft 4 in Weight 242 lb BMI 41.5 Body Fat % 48.9 Body Fat Mass 118.6 Fat Free Mass 124.2 Visceral Fat Rating 17 Body Water % 36.1 Body Water Mass 87.8 Muscle Mass/Score 118 Basal Metabolic Rate/Score 1,755 Intake Visit Reasons: (OV) F/U SWL Allergies aspirin [ASPIRIN] Adverse Reaction (Unknown, Verified 10/09/23 11:31) STOMACH SENSITIVITY ibuprofen [IBUPROFEN] Adverse Reaction (Unknown, Verified 10/09/23 11:31) STOMACH SENSITIVITY HPI Nutrition Presentation Reason for consult elevated BMI Diet Assmnt Details Pt no longer interested in SWL , her was just dx with parkinsons. she is thrilled to learn about our MWL program and will continue on this track. She states she is very happy with the bars/shakes, enjoys them. Recently had covid. celebrate rebuild and 20oz almond milk in 2 scoops 1 celebrate bar dinner - 9 forkfulls protein , small apple after dinner Exercise: minimal, does not enjoy exercise. Dietary counseling reduction Diagnosis Nutrition problem #1 overweight/obesity As related to (etiology) #1 excess energy intake and physical inactivity As evidenced by (sign/symptom) #1 high BMI Monitoring/Goals Nutrition problem monitoring total energy intake, level of knowledge/skill, total PRO intake, total CHO intake and weight Outcome progress progressing Learning/Education Readiness to learn excellent Stages of change action Educational materials provided Yes Most Recent Diabetes Results: Cholesterol 172 mg/dL (<200) 10/01/23 HDL Cholesterol 57 mg/dL (>40) 10/01/23 Triglycerides 133 mg/dL (<150) 10/01/23 Creatinine 0.91 mg/dL (0.5-1.4) 10/01/23 Blood Urea Nitrogen 23 mg/dL (9-16) H 10/01/23 Sodium 138 mmol/L (135-145) 10/01/23 Potassium 4.0 mmol/L (3.3-5.1) 10/01/23 Chloride 103 mmol/L (96-108) 10/01/23 Carbon Dioxide 23 mmol/L (22-29) 10/01/23 Calcium 10.6 mg/dL (8.4-10.2) H 10/01/23 AST 23 U/L (5-31) 10/01/23 ALT 24 U/L (0-31) 10/01/23 Total Protein 8.1 g/dL (6.5-8.0) H 10/01/23 Albumin 4.4 g/dL (3.5-5.0) 10/01/23 PFSH Medical History Bleeding hemorrhoids Osteoarthritis cervical spine Fibromyalgia Surgical History History of left knee replacement H/O colonoscopy History of carpal tunnel surgery S/P cholecystectomy H/O: hysterectomy Family History Father Colorectal cancer Paternal Grandmother Diabetes Mother Hypertension Lung cancer Social History Household Members Other:: , works from home, no exercise Housing: House Alcohol intake: never Patient Tobacco Use Status: Former Tobacco user Tobacco use type: Cigarette e-Cigarette/Vaping Use: Never Used service: No Current occupational status: employed 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 goal is at least 80g per day minimum. will pursue MWL instead. next appt with BRIANA LEVINE then will see me once more Coding Level of Care Code Nutr Indiv Subseq (29840) Diagnoses Morbid (severe) obesity due to excess calories E66.01 Time Spent (min) 30
[2023-11-03 15:42] VITALS: BMI 41.5
== END 2023-11-03 15:32 | disposition home or self-care (01) ==
PROVIDERS: PCP Internal Medicine; Visit Provider Dietitian, Registered
DX: E66.01 Morbid (severe) obesity due to excess calories (principal)

== ENCOUNTER → 2023-11-03 14:45 | Outpatient (BNVA) | payer MEDICARE, SELFPAY | PROVIDERS: PCP Internal Medicine; Visit Provider Dietitian, Registered | DX: E66.01 Morbid (severe) obesity due to excess calories (principal); Z68.41 Body mass index [BMI] 40.0-44.9, adult; Z71.3 Dietary counseling and surveillance | CPT/HCPCS: 97803 ==

== ENCOUNTER 2023-11-12 08:55 | Outpatient (REF) | payer MEDICARE, SELFPAY ==
--- NOTE | ~2023-11-12 | XR_ITS ---
EXAMINATION: XR KNEE AP STANDING, BILATERAL XR KNEE RIGHT, ONE VIEW CLINICAL INFORMATION: Knee pain COMPARISON: 08/31/2023 TECHNIQUE: AP bilateral standing view of the knees. [place] view of right knee FINDINGS: AP standing view of both knees: Normal alignment at the left knee, status post joint replacement surgery. The visualized femoral and tibial prosthetic hardware is in normal position. No osteolysis or fracture around the hardware. At the right knee, there is bpag-xc-puliterf narrowing of the joint space and marginal osteophyte formation at medial lateral tibiofemoral compartments. Right knee sunrise view: The patella is well-positioned within the trochlear groove. Marginal osteophytes are present at the mildly degenerated joint. No fracture or subluxation. XR/XR knee RT 1V IMPRESSION: Overall, there is mild tricompartmental osteoarthritis of the right knee with narrowing of the medial tibiofemoral joint space. No fracture or subluxation. Left knee arthroplasty components are in normal position.
--- NOTE | ~2023-11-12 | XR_ITS ---
EXAMINATION: XR KNEE AP STANDING, BILATERAL XR KNEE RIGHT, ONE VIEW CLINICAL INFORMATION: Knee pain COMPARISON: 08/31/2023 TECHNIQUE: AP bilateral standing view of the knees. [place] view of right knee FINDINGS: AP standing view of both knees: Normal alignment at the left knee, status post joint replacement surgery. The visualized femoral and tibial prosthetic hardware is in normal position. No osteolysis or fracture around the hardware. At the right knee, there is uotj-eh-heuyyxeo narrowing of the joint space and marginal osteophyte formation at medial lateral tibiofemoral compartments. Right knee sunrise view: The patella is well-positioned within the trochlear groove. Marginal osteophytes are present at the mildly degenerated joint. No fracture or subluxation. XR/XR knee standing BI IMPRESSION: Overall, there is mild tricompartmental osteoarthritis of the right knee with narrowing of the medial tibiofemoral joint space. No fracture or subluxation. Left knee arthroplasty components are in normal position.
== END 2023-11-12 08:56 | disposition home or self-care (01) ==
LOC: HO.HOSX 08:55
PROVIDERS: PCP Internal Medicine; Visit Provider Physician Assistant
DX: S83.241D Other tear of medial meniscus, current injury, right knee, subsequent encounter (principal); M17.11 Unilateral primary osteoarthritis, right knee; X58.XXXD Exposure to other specified factors, subsequent encounter
CPT/HCPCS: 20610; 73560; 73565; 99212; J1040

== ENCOUNTER 2023-11-12 08:55 | Outpatient (AMB) | payer MEDICARE, SELFPAY ==
[2023-11-12 09:11] VITALS: BMI 41.0
--- NOTE | 2023-11-12 09:11 | A.OFFVIS_ITS ---
Intake Vital Signs 11/12/23 09:11 Height 5 ft 4 in Weight 239 lb BMI 41.0 Intake Visit Reasons: OV - Rt knee OA, last inj 05/31/21 Intake Note: Pt reports having an MRI on her right knee that showed one full tear and one partial tear. She injured her knee in July of 2023 when her foot got caught on a chair and she twisted her knee. Allergies aspirin [ASPIRIN] Adverse Reaction (Unknown, Verified 11/12/23 09:12) STOMACH SENSITIVITY ibuprofen [IBUPROFEN] Adverse Reaction (Unknown, Verified 11/12/23 09:12) STOMACH SENSITIVITY HPI OV - Rt knee OA, last inj 05/31/21 HPI Details 68-year-old female who presents in the o ice today for a follow up of right knee pain. I last saw the patient in the office on 05/31/2021 where she received a cortisone injection in the bilateral knees. She was offered physical therapy and Gel injections along with total joint replacement were discussed, however she wished to hold off at that time. The patient reports having an MRI of the right knee which revealed one tear and one partial tear. She report she injured her knee in 08/2023 when her foot got caught in a chair and she twisted her knee. She states they pain went away at first but returned about 2 weeks after. She states it is not painful while in the office. She reports pain with activities and weight bearing. She states she has intermittent radiating pain down her leg. [facility] Medical History Bleeding hemorrhoids Osteoarthritis cervical spine Fibromyalgia Surgical History History of left knee replacement H/O colonoscopy History of carpal tunnel surgery S/P cholecystectomy H/O: hysterectomy Family History Father Colorectal cancer Paternal Grandmother Diabetes Mother Hypertension Lung cancer Social History Household Members Other:: , works from home, no exercise Housing: House Alcohol intake: never Patient Tobacco Use Status: Former Tobacco user Tobacco use type: Cigarette e-Cigarette/Vaping Use: Never Used service: No Current occupational status: employed 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 No ecchymosis, redness or joint effusion. Negative medial or lateral joint line tenderness. Crepitus felt with knee flexion and extension. Patient is able to demonstrate full knee range of motion. Negative Dedra's. Negative anterior drawer. NVI. Office Procedures Joint Injection/Drain Joint Injection/Drain Primary Site: right knee Prep: site was prepped using aseptic technique, ethochloride spray was applied and injection warnings given Injected: 80 mg of, DepoMedrol, with 8 mL of (2% plain lido ) and in the joint Approach Used: anterolateral Procedure: The patient tolerated the procedure well, but had some pain with the injection and there was some relief with the local anesthesia Coding 06604 - Large joint Procedure code (CPT) selection complete Assessment & Plan Assessment & Plan (1) Tear of medial meniscus of right knee: Code(s): S83.241A - Other tear of medial meniscus, current injury, right knee, initial encounter (2) Osteoarthritis of right knee: Code(s): M17.11 - Unilateral primary osteoarthritis, right knee Plan Ms. Moreau is a 68-year-old female who presents in the office today for a follow up of right knee pain. I last saw the patient in the office on 05/31/2021 where she received a cortisone injection in the bilateral knees. She was offered physical therapy and Gel injections along with total joint replacement were discussed, however she wished to hold off at that time. The patient reports having an MRI of the right knee which revealed one tear and one partial tear. She report she injured her knee in 08/2023 when her foot got caught in a chair and she twisted her knee. She states they pain went away at first but returned about 2 weeks after. She states it is not painful while in the office. She reports pain with activities and weight bearing. She states she has intermittent radiating pain down her leg. We discuss conservative versus surgical intervention, at this time we do not wish to move forward with surgical intervention. We discussed the cortisone injection and after a week if this does not give relief we can try to get approval for Gel injections. She will call the office in a week with an update if she wish to move forward with Gel injections. She is not currently interested in surgical intervention. The patient was offered a cortisone injection in the right knee with 80 mg of DepoMedrol. The patient was explained the risk, benefits, and alternatives to receiving this injection. After receiving consent for the injection, the patient had the procedure done while in office today. The patient tolerated the procedure well with no complications. Follow up will be in PRN, or sooner if needed. X-rays of the right knee which were obtained while in the office today and were reviewed by me, Gala Collazo PA-C, revealed no acute fracture or dislocation. MRI of the right knee, obtained on 09/14/2023, revealed: 1. Undersurface tear posterior horn medial meniscus and mild partial tear posterior root medial meniscus with moderate medial compartment chondrosis. 2. Moderate to advanced patellofemoral degenerative change. 3. Moderate joint effusion. Orders: Orders XR knee RT 1V Today M25.569 - Pain in unspecified knee XR knee standing BI Today M25.569 - Pain in unspecified knee Patient Instructions: Scribed for Gala Collazo PA-C by Morena Garcia medical office assistant instructor, on 11/12/2023 at 8:59 am, EST. Coding Level of Care Code Est Pt Level 4 (99993) Diagnoses Tear of medial meniscus of right knee S83.241A Osteoarthritis of right knee M17.11 CPT Codes Coding - 84263 Large joint: 63632 - Large joint ([id number])
== END 2023-11-12 10:31 | disposition home or self-care (01) ==
PROVIDERS: PCP Internal Medicine; Visit Provider Physician Assistant
DX: S83.241A Other tear of medial meniscus, current injury, right knee, initial encounter (principal); M17.11 Unilateral primary osteoarthritis, right knee
CPT/HCPCS: 20610; 99214

== ENCOUNTER 2023-11-23 14:23 | Outpatient (AMB) | payer MEDICARE, SELFPAY ==
--- NOTE | 2023-11-23 09:37 | MHC.OFFVISWM ---
Intake VS Expanded 11/23/23 09:38 Height 5 ft 4 in Weight 236 lb 4 oz BMI 40.5 Body Fat % 55.9 Body Fat Mass 132.1 Fat Free Mass 104.2 Visceral Fat Rating 22 Body Water % 30.2 Body Water Mass 71.3 Muscle Mass/Score 98 Basal Metabolic Rate/Score 1,374 Intake Visit Reasons: VIDEO F/U [facility] [employer] Executive Required: No Allergies aspirin [ASPIRIN] Adverse Reaction (Unknown, Verified 11/12/23 09:12) STOMACH SENSITIVITY ibuprofen [IBUPROFEN] Adverse Reaction (Unknown, Verified 11/12/23 09:12) STOMACH SENSITIVITY Medication List - Last Reconciled 11/23/23 by ABNER Vela celecoxib 200 mg PO DAILY cholecalciferol (vitamin D3) 125 mcg PO DAILY 90 days CPAP As directed cyanocobalamin (vitamin B-12) 250 mcg PO DAILY 90 days olmesartan 10 mg (1/2 x 20 mg) PO DAILY HPI HPI Comments History of Present Illness Details 68-year-old female returns to the office today in follow-up. She initially started the process with the goal of undergoing bariatric surgery in our surgical weight loss pathway however due to unexpected health issues with her , she has decided to transition to our medical weight loss pathway. Her initial weight on 09/23/2023 was 258.4 lb with a BMI of 44.4. Weight today is 236.4 lb with a BMI of 40.9. This reflects a 22 lb weight loss or 8.5% total body weight loss. She states that she has significantly increased her water intake and feels fantastic. She is following the meal plan as described below. Current meal plan includes: 1 Celebrate Rebuild shakes, (2 scoops in 20 oz unsweetened almond milk) at 8am-10am 1 protein bar (Celebrate bars) at 11am-1pm. Dinner at 5pm (9 forks of protein and 9 forks of salad/vegetables). Another bar at 7pm-9pm. may have an apple or 1/2 cup fresh berries between the first bar and dinner if you wish Drinking 70-80 oz of water Current exercise plan includes: Saw Ortho 11/12/23, got a cortisone shot and no surgery is indicated at this time but she may need TKR in the future. She is now able to walk more and go up/down stairs. She has a stationary bike at home, She has pain at her hemorrhoids with the seat. She is looking in the area for a gym w a pool [facility] Medical History Bleeding hemorrhoids Osteoarthritis cervical spine Fibromyalgia Surgical History History of left knee replacement H/O colonoscopy History of carpal tunnel surgery S/P cholecystectomy H/O: hysterectomy Family History Father Colorectal cancer Paternal Grandmother Diabetes Mother Hypertension Lung cancer Social History Household Members Other:: , works from home, no exercise Housing: House Alcohol intake: never Patient Tobacco Use Status: Former Tobacco user Tobacco use type: Cigarette e-Cigarette/Vaping Use: Never Used service: No Current occupational status: employed 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 She has decided to switch to the medical weight loss pathway due to the new health concerns with her . Change meal plan: 1 Celebrate Rebuild shakes, (1.5 scoops in 16 oz unsweetened almond milk) at 8am-10am 1 protein bar (Celebrate bars) at 11am-1pm. Dinner at 5pm (8 forks of protein and 8 forks of salad/vegetables). Another bar at 7pm-9pm. may have an apple or 1/2 cup fresh berries between the first bar and dinner if you wish She was encouraged to join the gym and use a recumbent bike due to complaints of hemorrhoid pain. Additionally, utilizing the elliptical and likely pool aerobics. Return to clinic 3-4 weeks. Telehealth Telehealth Location of provider rendering services: practice address Location of patient: address on file Patient Identification confirmed using: Name, : Yes Telehealth method: voice only Patient verbally consented to treatment: Yes Patient verbally consented to billing insurance company: Yes Patient informed of any privacy concerns related to visit: Yes Minutes spent on Phone/Video with Pt.: 15 Coding Level of Care Code Tele Est Pt Level 3 (56059) Diagnoses Morbid obesity E66.01
[2023-11-23 09:38] VITALS: BMI 40.5
== END 2023-11-23 14:23 | disposition home or self-care (01) ==
LOC: HO.HBS 14:23
PROVIDERS: PCP Internal Medicine; Visit Provider Physician Assistant Surgical
DX: E66.01 Morbid (severe) obesity due to excess calories (principal); Z68.41 Body mass index [BMI] 40.0-44.9, adult
CPT/HCPCS: 99442

== ENCOUNTER → 2023-11-23 14:23 | Outpatient (BNVA) | payer MEDICARE, SELFPAY | PROVIDERS: PCP Internal Medicine; Visit Provider Physician Assistant Surgical ==

== ENCOUNTER 2023-12-01 07:47 | Outpatient (REF) | payer MEDICARE, SELFPAY ==
[2023-12-01 08:04] LABS: MANUAL DIFF FLAG NO
[2023-12-01 08:34] LABS: Basophils Absolute Auto 0.1 X10*3/uL (0.0-0.2); Basophils Percent Auto 1.2 % (0-2); Eosinophils Absolute Auto 0.2 X10*3/uL (0.0-0.4); Eosinophils Percent Auto 3.3 % (0-4); Hematocrit 42.9 % (37.0-47.0); Hemoglobin 14.2 g/dl (12.0-16.0); Imm Gran Abs Auto 0.02 X10*3/uL (0.00-0.03); Imm Gran Pct Auto 0.4 % (0.0-0.4); Lymphocytes Absolute Auto 1.2 X10*3/uL (1.2-4.9); Mean Corpuscular HGB Conc 33.1 g/dl (31.0-35.0); Mean Corpuscular Volume 87.6 fL (80.0-98.0); Mean Platelet Volume 11.6 fL (9.4-12.3); Monocytes Absolute Auto 0.4 X10*3/uL (0.1-1.2); Monocytes Percent Auto 7.4 % (2-11); Neutrophils Absolute Auto 3.3 x10*3/uL (2.0-8.3); Neutrophils Percent Auto 63.7 % (45-73); Platelet Count 223 X10*3/uL (160-400); Red Cell Distribution Width 13.4 % (11.0-16.0); White Blood Count 5.1 X10*3/uL (4.8-10.8)
[2023-12-01 08:42] LABS: Estimated Average Glucose 114 mg/dL; Hemoglobin A1c % 5.6 % (<6.0)
[2023-12-01 09:13] LABS: Alanine Aminotransferase 17 U/L (0-31); Albumin Level 4.3 g/dL (3.5-5.0); Alkaline Phosphatase 81 U/L (39-117); Anion Gap 14 (12-20); Aspartate Amino Transferase 14 U/L (5-31); Bilirubin Total 1.2 mg/dL (0.0-1.0); Blood Urea Nitrogen 21 mg/dL (9-16); Calcium 10.2 mg/dL (8.4-10.2); Carbon Dioxide 25 mmol/L (22-29); Chloride 106 mmol/L (96-108); Cholesterol 134 mg/dL (<200); Estimated Glomerular Filt Rate > 60; Glucose Fasting 114 mg/dL (60-99); HDL Cholesterol 57 mg/dL (>40); LDL Cholesterol Calculated 60 mg/dL (<100); Potassium 4.2 mmol/L (3.3-5.1); Sodium 141 mmol/L (135-145); Total Protein 7.8 g/dL (6.5-8.0); Triglycerides 87 mg/dL (<150)
[2023-12-01 09:29] LABS: Creatinine Urine 192.56 mg/dL; Microalbum/Creatinine Ratio Ur 4.6 ug/mg cr (<30)
[2023-12-01 09:32] LABS: Vitamin D 25-OH Total 53.6 ng/mL (>30)
== END 2023-12-01 07:48 | disposition home or self-care (01) ==
LOC: HO.LAB 07:47
PROVIDERS: PCP Internal Medicine; Visit Provider Internal Medicine
DX: E66.01 Morbid (severe) obesity due to excess calories (principal); I10 Essential (primary) hypertension; R73.9 Hyperglycemia, unspecified
CPT/HCPCS: 36415; 80053; 80061; 82043; 82306; 82570; 83036; 85025

== ENCOUNTER 2023-12-07 08:40 | Outpatient (AMB) | payer MEDICARE, SELFPAY ==
[2023-12-07 08:51] VITALS: BP 122/66; PULSE 67; O2SAT 97; BMI 40.0
--- NOTE | 2023-12-07 08:51 | MHC.PC.OV ---
Vital Signs 12/07/23 08:51 Height 5 ft 4 in Weight 233 lb BMI 40.0 BP 122/66 Blood Pressure Location Lt brachial Position Sitting Pulse 67 Pulse Source Pulse Oximeter Pulse Oximetry (%) 97 Oxygen Delivery Method Room Air Intake Visit Reasons: 6M Follow up Intake Note: Pt is here today for 6 months follow up visit. Allergies aspirin [ASPIRIN] Adverse Reaction (Unknown, Verified 12/07/23 08:53) STOMACH SENSITIVITY ibuprofen [IBUPROFEN] Adverse Reaction (Unknown, Verified 12/07/23 08:53) STOMACH SENSITIVITY Medication List - Last Reconciled 12/07/23 by Jacqueline Archer MD celecoxib 200 mg PO DAILY CPAP As directed cyanocobalamin (vitamin B-12) 250 mcg PO DAILY 90 days olmesartan 10 mg (1/2 x 20 mg) PO DAILY Tobacco use date assessed: 12/07/23 Fall risk assessment: No Falls in past year Last assessed Fall Risk: 12/07/23 Dental Screening Dental Screen Date: 12/07/23 Did you have a dental visit in the last 12 months?: Yes Did you have a dental problem in the last 6 months where you did not have access to dental care?: No Was dental information given to patient?: Patient has dentist HPI 6M Follow up HPI Details Patient presents for the follow-up hypertension controlled on olmesartan. Patient follows up with weight management program and lost about 30 lb since July. She is started exercising at the gym 5 times a week. COUNT INCLUDES THE [facility] Medical History Bleeding hemorrhoids Osteoarthritis cervical spine Fibromyalgia Surgical History History of left knee replacement H/O colonoscopy History of carpal tunnel surgery S/P cholecystectomy H/O: hysterectomy Family History Father Colorectal cancer Paternal Grandmother Diabetes Mother Hypertension Lung cancer Social History Household Members Other:: , works from home, no exercise Housing: House Alcohol intake: never Patient Tobacco Use Status: Former Tobacco user Tobacco use type: Cigarette e-Cigarette/Vaping Use: Never Used service: No Current occupational status: employed 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 How often do you have a drink containing alcohol?: Never 3. How often do you have six or more drinks on one occasion?: Never Total Score: 0 PEGGY-7 AMB Questionnaire PEGGY-7 Date PEGGY - 7 assessed: 06/03/22 Feeling nervous, anxious, or on edge: 1 = Several days Not being able to stop or control worryin = Nearly every day Worrying too much about different things: 3 = Nearly every day Trouble relaxin = Not at all Being so restless that it is hard to sit still: 0 = Not at all Becoming easily annoyed or irritable: 1 = Several days Feeling afraid as if something awful might happen: 3 = Nearly every day Total PEGGY-7 score (0-4 normal; 5-9 mild; 10-14 moderate; 15-21 severe): 11 Source: Developed by Drs. Jan Araya, Angela Quijano, Maciel Rothman and colleagues, with an educational amy from [employer]. Review of Systems Const All systems reviewed & are unremarkable except as noted in HPI and below Reports no additional complaints Eyes Reports no additional complaints ENT Reports no additional complaints Card Reports no additional complaints Resp Reports no additional complaints GI Reports no additional complaints Reports no additional complaints Physical exam (Primary Care) Vital Signs: Last Vital Signs Pulse 67 12/07/23 08:51 BP 122/66 12/07/23 08:51 Pulse Ox 97 12/07/23 08:51 Oxygen Delivery Method Room Air 12/07/23 08:51 BMI result Body Mass Index 40.0 Tobacco/Smoking Status: Tobacco use Status Tobacco use date assessed 12/07/23 12/07/23 08:55 Patient Tobacco Use Status Former Tobacco user 12/07/23 08:55 Tobacco use type Cigarette 12/07/23 08:55 e-Cigarette/Vaping Use Never Used 12/07/23 08:55 Thrive Assessment: Date of Thrive Assessment Date Thrive assessed 06/03/22 12/07/23 08:55 Const General: no acute distress HENMT Head: Yes normal to inspection Ears: hearing grossly normal bilaterally General nose exam: Normal external nose present Eyes General: appearance normal, both eyes and all related structures Neck Neck: Yes no lymphadenopathy Chest Chest palpation & inspection: normal inspection of the chest Resp Effort & Inspection: normal respiratory effort Auscultation: clear to auscultation bilaterally Cardio Rhythm: regular rhythm Heart sounds: S1 normal heart sound present and S2 normal heart sound present GI Inspection: Yes normal to inspection Palpation (GI): Soft to palpation Percussion: Yes normal to percussion Auscultation: normal bowel sounds Assessment and Plan Assessment & Plan (1) Postmenopausal: Code(s): Z78.0 - Asymptomatic menopausal state Plan: Check DEXA (2) Hyperglycemia: Code(s): R73.9 - Hyperglycemia, unspecified Plan: A1c is down to 5.6, continue ADA diet increase physical activity weight loss discussed with the patient. Follow-up in 6 months with a fasting labs before including A1c (3) Annual physical exam: Code(s): Z00.00 - Encounter for general adult medical examination without abnormal findings Plan: Patient is up-to-date with mammogram and colonoscopy (4) HTN (hypertension): Code(s): I10 - Essential (primary) hypertension Plan: Continue olmesartan (5) Vitamin D deficiency: Code(s): E55.9 - Vitamin D deficiency, unspecified Plan: Patient took a high dose of vitamin-D for 2 months and the level is 57. She oswaldo switch to 2000 units of vitamin-D supplement (6) Morbid obesity: Code(s): E66.01 - Morbid (severe) obesity due to excess calories Plan: Continue weight management program (7) DEZ (obstructive sleep apnea): Comment: Severe degree of sleep apnea. The AHI was 37/hr and oxygen jeffy was 78%. on Cpap Code(s): G47.33 - Obstructive sleep apnea (adult) (pediatric) Plan: Continue CPAP and follow-up with sleep medicine Orders: Orders XR DEXA axial skeleton Today Z78.0 - Asymptomatic menopausal state Comprehensive [place]. Panel Fast 6 Months I10 - Essential (primary) hypertension, R73.9 - Hyperglycemia, unspecified, Z00.00 - Encounter for general adult medical examination without abnormal findings Vitamin B12 and Folate 6 Months I10 - Essential (primary) hypertension, R73.9 - Hyperglycemia, unspecified, Z00.00 - Encounter for general adult medical examination without abnormal findings Vitamin D 25-OH Total 6 Months E55.9 - Vitamin D deficiency, unspecified, I10 - Essential (primary) hypertension, R73.9 - Hyperglycemia, unspecified, Z00.00 - Encounter for general adult medical examination without abnormal findings Complete Blood Count Auto Diff 6 Months I10 - Essential (primary) hypertension, R73.9 - Hyperglycemia, unspecified, Z00.00 - Encounter for general adult medical examination without abnormal findings Hemoglobin A1c 6 Months I10 - Essential (primary) hypertension, R73.9 - Hyperglycemia, unspecified, Z00.00 - Encounter for general adult medical examination without abnormal findings Lipid Panel 6 Months I10 - Essential (primary) hypertension, R73.9 - Hyperglycemia, unspecified, Z00.00 - Encounter for general adult medical examination without abnormal findings TSH reflex Free T4 6 Months I10 - Essential (primary) hypertension, R73.9 - Hyperglycemia, unspecified, Z00.00 - Encounter for general adult medical examination without abnormal findings Microalbumin, Random (w Creat) 6 Months I10 - Essential (primary) hypertension, R73.9 - Hyperglycemia, unspecified, Z00.00 - Encounter for general adult medical examination without abnormal findings Medications: New celecoxib 200 mg PO DAILY 90 caps 1RF Refilled olmesartan 10 mg (1/2 x 20 mg) PO DAILY 45 tabs 3RF Discontinued cholecalciferol (vitamin D3) Discontinued Reason: Doctor's Order 125 mcg PO DAILY 90 days 90 caps 1RF Coding Level of Care Code Est Pt Level 4 (55325) Diagnoses Postmenopausal Z78.0 Hyperglycemia R73.9 Annual physical exam Z00.00 HTN (hypertension) I10 Vitamin D deficiency E55.9 Morbid obesity E66.01 DEZ (obstructive sleep apnea) G47.33
== END 2023-12-07 10:02 | disposition home or self-care (01) ==
PROVIDERS: PCP Internal Medicine; Visit Provider Internal Medicine
DX: I10 Essential (primary) hypertension (principal); E66.01 Morbid (severe) obesity due to excess calories; Z68.41 Body mass index [BMI] 40.0-44.9, adult; Z78.0 Asymptomatic menopausal state; R73.9 Hyperglycemia, unspecified; E55.9 Vitamin D deficiency, unspecified; G47.33 Obstructive sleep apnea (adult) (pediatric)
CPT/HCPCS: 99214

== ENCOUNTER 2023-12-09 13:51 | Outpatient (AMB) | payer MEDICARE, SELFPAY ==
--- NOTE | 2023-12-09 14:01 | A.OFFVIS_ITS ---
Intake Vital Signs 12/09/23 14:05 Height 5 ft 4 in Weight 236 lb BMI 40.5 BP 115/62 Blood Pressure Location Lt brachial Position Sitting Pulse 89 Pulse Source Pulse Oximeter Pulse Oximetry (%) 98 Oxygen Delivery Method Room Air Intake Visit Reasons: 1 year f/u for DEZ - CONF Intake Note: Patient presents for 1 year f/u. Allergies aspirin [ASPIRIN] Adverse Reaction (Unknown, Verified 12/09/23 14:04) STOMACH SENSITIVITY ibuprofen [IBUPROFEN] Adverse Reaction (Unknown, Verified 12/09/23 14:04) STOMACH SENSITIVITY HPI HPI Comments History of Present Illness Details 68 y/o female patient presents for follo w up of DEZ on CPAP. Pt reports that no more bloating and feels more comfortable after changing CPAP pressure to [id number] (02/07/23). She tried 3 different masks and current mask fits better and comfortable. The CPAP compliance and therapy response (09/10/23-12/08/23) reviewed with the patient. She is on CPAP at [id number]. The usage days 100 % and average usage hours 9 hours. The residual AHI was 0.7/hr She had a new CPAP an year ago, and also her insurance changed. She wakes up refreshed and has more daytime energy. She noticed that her fibromyalgia pain almost resolved after using CPAP. Pt's mood has been improved, too. she is followed by management. [facility] Medical History Bleeding hemorrhoids Osteoarthritis cervical spine Fibromyalgia Surgical History History of left knee replacement H/O colonoscopy History of carpal tunnel surgery S/P cholecystectomy H/O: hysterectomy Family History Father Colorectal cancer Paternal Grandmother Diabetes Mother Hypertension Lung cancer Social History Household Members Other:: , works from home, no exercise Housing: House Alcohol intake: never Patient Tobacco Use Status: Former Tobacco user Tobacco use type: Cigarette e-Cigarette/Vaping Use: Never Used service: No Current occupational status: employed 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 Cognitive needs: No Hearing needs: No Vision needs: Yes Review of Systems Const All systems reviewed & are unremarkable except as noted in HPI and below ENT Reports Normal hearing present Neuro Reports Normal hearing present Physical Exam Vital Signs: Last Vital Signs Pulse 89 12/09/23 14:05 BP 115/62 12/09/23 14:05 Pulse Ox 98 12/09/23 14:05 Oxygen Delivery Method Room Air 12/09/23 14:05 BMI result Body Mass Index 40.5 Const General: cooperative Nutritional Appearance: obese Orientation/consciousness: patient oriented x3 Neck Neck: Yes full ROM and Yes supple Resp Effort & Inspection: normal respiratory effort and able to speak in complete sentences Neuro General: patient oriented x3 and moves all extremities Cranial nerves: Yes Bilaterally intact EOM present, Yes Normal facial strength present, Yes Midline tongue present, Yes Symmetric palate elevation present, Yes Normal hearing present, Yes Ability to bilaterally rotate head present and Yes Ability to bilaterally elevate shoulders present Cognition (Neuro): normal cognition Psych Appearance: grossly normal Mental Status: mental status grossly normal Affect: normal affect Attitude: cooperative Assessment & Plan Assessment & Plan (1) DEZ (obstructive sleep apnea): Comment: Severe degree of sleep apnea. The AHI was 37/hr and oxygen jeffy was 78%. on Cpap Code(s): G47.33 - Obstructive sleep apnea (adult) (pediatric) Plan Continue to use CPAP at [id number] as patient experiences good clinical effects. Stressed compliance, use nightly and more than 4 hours. Encouraged patient to increase daily physical activity and wt reduction advised. Coding Level of Care Code Est Pt Level 3 (14180) Diagnoses DEZ (obstructive sleep apnea) G47.33
[2023-12-09 14:05] VITALS: BP 115/62; PULSE 89; O2SAT 98; BMI 40.5
== END 2023-12-09 14:26 | disposition home or self-care (01) ==
PROVIDERS: PCP Internal Medicine; Visit Provider Nurse Practitioner Family
DX: G47.33 Obstructive sleep apnea (adult) (pediatric) (principal)
CPT/HCPCS: 99213

== ENCOUNTER → 2023-12-09 13:51 | Outpatient (BNVA) | payer MEDICARE, SELFPAY | PROVIDERS: PCP Internal Medicine; Visit Provider Nurse Practitioner Family | DX: G47.33 Obstructive sleep apnea (adult) (pediatric) (principal) | CPT/HCPCS: 99212 ==

== ENCOUNTER 2023-12-22 14:38 | Outpatient (AMB) | payer MEDICARE, SELFPAY ==
--- NOTE | 2023-12-22 13:41 | MHC.OFFVISWM ---
Intake VS Expanded 12/22/23 13:42 Height 5 ft 4 in Weight 231 lb 12.8 oz BMI 39.8 Body Fat % 54.7 Body Fat Mass 126.7 Fat Free Mass 105 Visceral Fat Rating 22 Body Water % 31.1 Body Water Mass 72 Muscle Mass/Score 98.8 Basal Metabolic Rate/Score 1,392 Intake Visit Reasons: VIDEO F/U [facility] Allergies aspirin [ASPIRIN] Adverse Reaction (Unknown, Verified 12/09/23 14:04) STOMACH SENSITIVITY ibuprofen [IBUPROFEN] Adverse Reaction (Unknown, Verified 12/09/23 14:04) STOMACH SENSITIVITY HPI HPI Comments History of Present Illness Details 68-year-old female returns to the office today in follow-up. She initially started the process with the goal of undergoing bariatric surgery in our surgical weight loss pathway however due to unexpected health issues with her , she has decided to transition to our medical weight loss pathway. Her initial weight on 09/23/2023 was 258.4 lb with a BMI of 44.4. Weight today is 231.8 lb with a BMI of 39.8. This reflects a 26.6 lb weight loss or 10.2% total body weight loss. She states that she has significantly increased her water intake and feels fantastic. She is following the meal plan as described below. Current meal plan includes: 1 Celebrate Rebuild shakes, (1.5 scoops in 16 oz unsweetened almond milk) at 8am-10am 1 protein bar (Celebrate bars) at 11am-1pm. Dinner at 5pm (8 forks of protein and 8 forks of salad/vegetables). Another bar at 7pm-9pm. may have an apple or 1/2 cup fresh berries between the first bar and dinner if you wish Drinking 70-80 oz of water Current exercise plan includes: Joined [employer] 4 x per week water aerobics, yoga, silver sneakers. 1 hour each (10 am) [facility] Medical History Bleeding hemorrhoids Osteoarthritis cervical spine Fibromyalgia Surgical History History of left knee replacement H/O colonoscopy History of carpal tunnel surgery S/P cholecystectomy H/O: hysterectomy Family History Father Colorectal cancer Paternal Grandmother Diabetes Mother Hypertension Lung cancer Social History Household Members Other:: , works from home, no exercise Housing: House Alcohol intake: never Patient Tobacco Use Status: Former Tobacco user Tobacco use type: Cigarette e-Cigarette/Vaping Use: Never Used service: No Current occupational status: employed 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 She does state increased hunger after starting her new gym routine which is at approximately 10 a.m.. She additionally states that having the shake from 8-10 is difficult due to her morning schedule. We will amend her meal plans slightly. 1 Celebrate Rebuild shakes, (1.5 scoops in 16 oz unsweetened almond milk) at 830am-930am meal w 5 forks protein and 7 forks veggies at 11am-1pm. Dinner at 5pm (7 forks of protein and 7 forks of salad/vegetables). Citizen Of [place] yogurt with 1/2 cup fresh berries after dinner Return to clinic 1 month. Telehealth Telehealth Location of provider rendering services: practice address Location of patient: address on file Patient Identification confirmed using: Name, : Yes Telehealth method: voice only Patient verbally consented to treatment: Yes Patient verbally consented to billing insurance company: Yes Patient informed of any privacy concerns related to visit: Yes Minutes spent on Phone/Video with Pt.: 15 Coding Level of Care Code Tele Est Pt Level 3 (37509) Diagnoses Morbid obesity E66.01 Time Spent (min) 20
[2023-12-22 13:42] VITALS: BMI 39.8
== END 2023-12-22 14:41 | disposition home or self-care (01) ==
LOC: HO.HBS 14:38
PROVIDERS: PCP Internal Medicine; Visit Provider Physician Assistant Surgical
DX: E66.01 Morbid (severe) obesity due to excess calories (principal); Z68.39 Body mass index [BMI] 39.0-39.9, adult
CPT/HCPCS: 99442

== ENCOUNTER → 2023-12-22 14:38 | Outpatient (BNVA) | payer MEDICARE, SELFPAY | PROVIDERS: PCP Internal Medicine; Visit Provider Physician Assistant Surgical | DX: E66.01 Morbid (severe) obesity due to excess calories (principal) ==

== ENCOUNTER 2023-12-24 10:43 | Outpatient (REF) | payer MEDICARE, SELFPAY ==
--- NOTE | ~2023-12-24 | MM_ITS ---
EXAMINATION: BONE DENSITOMETRY CLINICAL INDICATION: Asymptomatic menopausal state. COMPARISON: This is the patient's baseline examination. TECHNIQUE: Using a [employer] DXA System (software version: 13.1) manufactured by [employer], dual-energy x-ray absorptiometry was performed of the lumbar spine and left hip. The images are of good technical quality. Summary results are attached. FINDINGS: LEFT FEMUR, NECK: BMD 0.931 g/cm2, Z-score 0.0, T-score -0.8, normal. LEFT FEMUR, TOTAL: BMD 1.049 g/cm2, Z-score 0.8, T-score 0.3, normal. AP SPINE L1-L4: BMD 0.966 g/cm2, Z-score -1.3, T-score -1.8, osteopenia. IDENTIFIED RISK FACTORS: Early menopause, secondary osteoporosis, hysterectomy, low calcium intake. HISTORY OF FRACTURE: None listed. MEDICATIONS: Vitamin D. MM/XR DEXA axial skeleton IMPRESSION: 1. DIAGNOSIS: Osteopenia based on the lowest T-score value of -1.8 in the lumbar spine applying World Health Organization criteria. 2. 10-YEAR FRACTURE RISK PREDICTION, FRAX: Major osteoporotic fracture (clinical spine, forearm, hip or shoulder) 7.1%. Hip fracture 0.5%. 3. Treatment Recommendations: NOF guidelines recommend consideration for treatment in postmenopausal women and men age 50 and older presenting with the following: -A hip or vertebral (clinical or morphometric) fracture. -T-score less than or equal to -2.5 at the femoral neck or spine after appropriate evaluation to exclude secondary causes. -Low bone mass at the hip or spine and a 10-year fracture probability by FRAX of greater than or equal to 3% for hip fracture or greater than or equal to 20% for major osteoporotic fracture based on the [place] adapted WHO algorithm. 4. Other Recommendations: All treatment decisions require clinical judgment and consideration of individual patient factors, including patient preferences, comorbidities, previous drug use, risk factors not captured in the FRAX model (e.g. frailty, falls, vitamin D deficiency, increased bone turnover, interval significant decline in bone density) and possible under or overestimation of fracture risk by FRAX. Additional medical evaluation for secondary cause of low bone mineral density may be appropriate. FUTURE SCAN RECOMMENDATION: People with diagnosed cases of osteoporosis or at high risk for fracture should have regular bone mineral density tests. For patients eligible for Medicare, routine testing is allowed once every 2 years. The testing frequency can be increased to one year for patients who have rapidly progressing disease, those who are receiving or discontinuing medical therapy to restore bone mass, or have additional risk factors.
== END 2023-12-24 10:44 | disposition home or self-care (01) ==
LOC: HO.MAMMO 10:43
PROVIDERS: PCP Internal Medicine; Visit Provider Internal Medicine
DX: Z13.820 Encounter for screening for osteoporosis (principal); Z78.0 Asymptomatic menopausal state
CPT/HCPCS: 77080

== ENCOUNTER 2023-12-31 09:50 | Outpatient (AMB) | payer MEDICARE, SELFPAY ==
[2023-12-31 09:52] VITALS: BMI 39.6
--- NOTE | 2023-12-31 09:52 | A.OFFVIS_ITS ---
Intake Vital Signs 12/31/23 09:52 Height 5 ft 4 in Weight 231 lb BMI 39.6 Intake Visit Reasons: OV - Rt knee OA, last inj 11/12/2023 Intake Note: Nahomy is a 68 year old female who presents today for a follow up for her right knee OA, last injection 11/12/23. Patient reports last injection lasted about 2 weeks and would like to discuss gel injection today. Allergies aspirin [ASPIRIN] Adverse Reaction (Unknown, Verified 12/31/23 09:52) STOMACH SENSITIVITY ibuprofen [IBUPROFEN] Adverse Reaction (Unknown, Verified 12/31/23 09:52) STOMACH SENSITIVITY HPI OV - Rt knee OA, last inj 11/12/2023 HPI Details 68-year-old female who presents in the o [facility] today for a follow up of right knee pain. I last saw the patient on 11/12/2023, at this time she was given a cortisone injection in the right knee. She was instructed if after a week she did not have any relief we would petition the insurance to move forward with Gel injections. The patient reports the last injection gave her about 2 weeks of relief. [facility] Medical History Bleeding hemorrhoids Osteoarthritis cervical spine Fibromyalgia Surgical History History of left knee replacement H/O colonoscopy History of carpal tunnel surgery S/P cholecystectomy H/O: hysterectomy Family History Father Colorectal cancer Paternal Grandmother Diabetes Mother Hypertension Lung cancer Social History Household Members Other:: , works from home, no exercise Housing: House Alcohol intake: never Patient Tobacco Use Status: Former Tobacco user Tobacco use type: Cigarette e-Cigarette/Vaping Use: Never Used service: No Current occupational status: employed 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 No ecchymosis, redness or joint effusion. Negative medial or lateral joint line tenderness. Crepitus felt with knee flexion and extension. Patient is able to demonstrate full knee range of motion. Negative Dedra's. Negative anterior drawer. NVI. Assessment & Plan Assessment & Plan (1) Tear of medial meniscus of right knee: Code(s): S83.241A - Other tear of medial meniscus, current injury, right knee, initial encounter (2) Osteoarthritis of right knee: Code(s): M17.11 - Unilateral primary osteoarthritis, right knee Plan Ms. Moreau is a 68-year-old female who presents in the office today for a follow up of right knee pain. I last saw the patient on 11/12/2023, at this time she was given a cortisone injection in the right knee. She was instructed if after a week she did not have any relief we would petition the insurance to move forward with Gel injections. The patient reports the last injection gave her about 2 weeks of relief. The office will petition her insurance for approval of Gel injections. We will call to schedule for the patient to come in once approval is obtained. If she is unable to obtained coverage for Gel injections the next step would be a referral to Pain Management for further evaluation of nerve ablation. She is hesitant to move forward with a right total knee arthroplasty. She has a left knee replacement 15 months ago and still has stiffness and pain. Follow up will be after insurance authorization is obtained, or sooner if needed. Patient Instructions: Scribed by Morena Garcia certified medical transcriptionist, for Gala Collzao PA-C on 12/31/2023 at 9:52 am, EST. Coding Level of Care Code Est Pt Level 3 (43592) Diagnoses Tear of medial meniscus of right knee S83.241A Osteoarthritis of right knee M17.11
== END 2023-12-31 10:13 | disposition home or self-care (01) ==
PROVIDERS: PCP Internal Medicine; Visit Provider Physician Assistant
DX: S83.241A Other tear of medial meniscus, current injury, right knee, initial encounter (principal); M17.11 Unilateral primary osteoarthritis, right knee
CPT/HCPCS: 99213

== ENCOUNTER → 2023-12-31 09:50 | Outpatient (BNVA) | payer MEDICARE, SELFPAY | PROVIDERS: PCP Internal Medicine; Visit Provider Physician Assistant | DX: S83.241D Other tear of medial meniscus, current injury, right knee, subsequent encounter (principal); M17.11 Unilateral primary osteoarthritis, right knee | CPT/HCPCS: 99212 ==

== ENCOUNTER 2024-01-19 13:25 | Outpatient (AMB) | payer MEDICARE, SELFPAY ==
[2024-01-19 11:55] VITALS: BMI 40.0
--- NOTE | 2024-01-19 11:55 | MHC.OFFVISWM ---
Intake VS Expanded 01/19/24 11:55 Height 5 ft 4 in Weight 233 lb BMI 40.0 Body Fat % 55.1 Body Fat Mass 128.4 Fat Free Mass 104.6 Visceral Fat Rating 22 Body Water % 30.8 Body Water Mass 71.8 Muscle Mass/Score 98.4 Basal Metabolic Rate/Score 1,395 Intake Visit Reasons: VIDEO F/U [facility] Nurse Outreach Case Manager Required: No Allergies aspirin [ASPIRIN] Adverse Reaction (Unknown, Verified 12/31/23 09:52) STOMACH SENSITIVITY ibuprofen [IBUPROFEN] Adverse Reaction (Unknown, Verified 12/31/23 09:52) STOMACH SENSITIVITY Medication List - Last Reconciled 01/19/24 by ABNER Vela celecoxib 200 mg PO DAILY CPAP As directed cyanocobalamin (vitamin B-12) 250 mcg PO DAILY 90 days magnesium glycinate-mag oxide 120 mg PO DAILY melatonin 1 mg PO BEDTIME PRN olmesartan 10 mg (1/2 x 20 mg) PO DAILY HPI HPI Comments History of Present Illness Details 68-year-old female returns to the office today in follow-up. She initially started the process with the goal of undergoing bariatric surgery in our surgical weight loss pathway however due to unexpected health issues with her , she has decided to transition to our medical weight loss pathway. Her initial weight on 09/23/2023 was 258.4 lb with a BMI of 44.4. Weight today is 233 lb with a BMI of 40. This reflects a 25.4 lb weight loss or 9.8% total body weight loss. She states that she has significantly increased her water intake and feels fantastic. She is following the meal plan as described below. She states her hunger has returned, around noon time for the rest of the day. She had cortisone injection for her right knee that only lasted 2 weeks and the has pain in the left foot now. Current meal plan includes: 1 Celebrate Rebuild shakes, (1.5 scoops in 16 oz unsweetened almond milk) at 830am-930am meal w 5 forks protein and 7 forks veggies at 11am-1pm. Dinner at 5pm (7 forks of protein and 7 forks of salad/vegetables). Portuguese yogurt with 1/2 cup fresh berries or celebrate protein bar after dinner, 7 pm Drinking 70-80 oz of water Current exercise plan includes: Joined [employer] 4 x per week water aerobics, yoga, silver sneakers. 1 hour each (10 am) [facility] Medical History Bleeding hemorrhoids Osteoarthritis cervical spine Fibromyalgia Surgical History History of left knee replacement H/O colonoscopy History of carpal tunnel surgery S/P cholecystectomy H/O: hysterectomy Family History Father Colorectal cancer Paternal Grandmother Diabetes Mother Hypertension Lung cancer Social History Household Members Other:: , works from home, no exercise Housing: House Alcohol intake: never Patient Tobacco Use Status: Former Tobacco user Tobacco use type: Cigarette e-Cigarette/Vaping Use: Never Used service: No Current occupational status: employed 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 Fresh fruit Dinner at 5pm (7 forks of protein and 7 forks of salad/vegetables). Portuguese yogurt with 1/2 cup fresh berries or celebrate protein bar after dinner, 7 pm Continue activities at the gym, trying to increase cardio she is able. Return to the office in 3-4 weeks. Text weekly with any questions or concerns. Telehealth Telehealth Location of provider rendering services: practice address Location of patient: address on file Patient Identification confirmed using: Name, : Yes Telehealth method: voice only Patient verbally consented to treatment: Yes Patient verbally consented to billing insurance company: Yes Patient informed of any privacy concerns related to visit: Yes Minutes spent on Phone/Video with Pt.: 15 Coding Level of Care Code Tele Est Pt Level 3 (88648) Diagnoses Morbid obesity E66.01 Time Spent (min) 18
== END 2024-01-19 13:53 | disposition home or self-care (01) ==
LOC: HO.HBS 13:25
PROVIDERS: PCP Internal Medicine; Visit Provider Physician Assistant Surgical
DX: E66.01 Morbid (severe) obesity due to excess calories (principal); Z68.41 Body mass index [BMI] 40.0-44.9, adult
CPT/HCPCS: 99442

== ENCOUNTER → 2024-01-19 13:25 | Outpatient (BNVA) | payer MEDICARE, SELFPAY | PROVIDERS: PCP Internal Medicine; Visit Provider Physician Assistant Surgical ==

== ENCOUNTER 2024-02-09 10:15 | Outpatient (AMB) | payer MEDICARE, SELFPAY ==
--- NOTE | 2024-02-09 10:18 | MHC.OFFVIS ---
Intake Vital Signs 02/09/24 10:19 Height 5 ft 4 in Weight 225 lb BMI 38.6 Intake Visit Reasons: Right knee Durolane Gel Inj Intake Note: Nahomy is a 68 year old female who presents today for a Durolane gel injection for her right knee. Allergies aspirin [ASPIRIN] Adverse Reaction (Unknown, Verified 12/31/23 09:52) STOMACH SENSITIVITY ibuprofen [IBUPROFEN] Adverse Reaction (Unknown, Verified 12/31/23 09:52) STOMACH SENSITIVITY HPI Right knee Durolane Gel Inj HPI Details 68-year-old female who presents in the office today for a follow up of right knee pain. I last saw the patient in the office on 12/31/2023, at that time we discussed gel injections and that the office would petition approval from the insurance. [facility] Medical History Bleeding hemorrhoids Osteoarthritis cervical spine Fibromyalgia Surgical History History of left knee replacement H/O colonoscopy History of carpal tunnel surgery S/P cholecystectomy H/O: hysterectomy Family History Father Colorectal cancer Paternal Grandmother Diabetes Mother Hypertension Lung cancer Social History Household Members Other:: , works from home, no exercise Housing: House Alcohol intake: never Patient Tobacco Use Status: Former Tobacco user Tobacco use type: Cigarette e-Cigarette/Vaping Use: Never Used service: No Current occupational status: employed 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 No ecchymosis, redness or joint effusion. Negative medial or lateral joint line tenderness. Crepitus felt with knee flexion and extension. Patient is able to demonstrate full knee range of motion. Negative Dedra's. Negative anterior drawer. NVI. Office Procedures Joint Injection/Drain Joint Injection/Drain Primary Site: right knee Prep: site was prepped using aseptic technique, ethochloride spray was applied and injection warnings given Injected: in the joint (Durolane injection ) Approach Used: anterolateral Procedure: The patient tolerated the procedure well, but had some pain with the injection and there was some relief with the local anesthesia Coding - Large joint Procedure code (CPT) selection complete Assessment & Plan Assessment & Plan (1) Tear of medial meniscus of right knee: Code(s): S83.241A - Other tear of medial meniscus, current injury, right knee, initial encounter (2) Osteoarthritis of right knee: Code(s): M17.11 - Unilateral primary osteoarthritis, right knee Plan Ms. Moreau is a 68-year-old female who presents in the office today for a follow up of right knee pain. I last saw the patient in the office on 12/31/2023, at that time we discussed gel injections and that the office would petition approval from the insurance. The patient was offered a Durolane injection in the right knee. The patient was explained the risk, benefits, and alternatives to receiving this injection. After receiving consent for the injection, the patient had the procedure done while in office today. The patient tolerated the procedure well with no complications. Follow up will be PRN, or sooner if needed. Patient Instructions: Scribed by Morena Garcia medical physics teacher, for Gala Collazo PA-C on 02/09/2024 at 10:17 am, EST. Coding Level of Care Code Procedure Only Diagnoses Tear of medial meniscus of right knee S83.241A Osteoarthritis of right knee M17.11 CPT Codes Coding - Large joint: 37260 - Large joint ([id number])
[2024-02-09 10:19] VITALS: BMI 38.6
== END 2024-02-09 10:33 | disposition home or self-care (01) ==
PROVIDERS: PCP Internal Medicine; Visit Provider Physician Assistant
DX: S83.241A Other tear of medial meniscus, current injury, right knee, initial encounter (principal); M17.11 Unilateral primary osteoarthritis, right knee
CPT/HCPCS: 20610

== ENCOUNTER → 2024-02-09 10:15 | Outpatient (BNVA) | payer MEDICARE, SELFPAY | PROVIDERS: PCP Internal Medicine; Visit Provider Physician Assistant | DX: S83.241A Other tear of medial meniscus, current injury, right knee, initial encounter (principal); M17.11 Unilateral primary osteoarthritis, right knee | CPT/HCPCS: 20610; J7318 ==

== ENCOUNTER 2024-02-16 14:42 | Outpatient (AMB) | payer MEDICARE, SELFPAY ==
--- NOTE | 2024-02-16 09:33 | MHC.OFFVISWM ---
Intake VS Expanded 02/16/24 09:34 Height 5 ft 4 in Weight 228 lb 6.4 oz BMI 39.2 Body Fat % 53.8 Body Fat Mass 122.8 Fat Free Mass 105.6 Visceral Fat Rating 21 Body Water % 31.7 Body Water Mass 72.4 Muscle Mass/Score 99.2 Basal Metabolic Rate/Score 1,413 Intake Visit Reasons: tv F/U [employer] Required: No Allergies aspirin [ASPIRIN] Adverse Reaction (Unknown, Verified 12/31/23 09:52) STOMACH SENSITIVITY ibuprofen [IBUPROFEN] Adverse Reaction (Unknown, Verified 12/31/23 09:52) STOMACH SENSITIVITY Medication List - Last Reconciled 02/16/24 by ABNER Vela celecoxib 200 mg PO DAILY CPAP As directed cyanocobalamin (vitamin B-12) 250 mcg PO DAILY 90 days magnesium glycinate-mag oxide 120 mg PO DAILY melatonin 1 mg PO BEDTIME PRN olmesartan 10 mg (1/2 x 20 mg) PO DAILY HPI HPI Comments History of Present Illness Details 68-year-old female returns to the office today in follow-up. She initially started the process with the goal of undergoing bariatric surgery in our surgical weight loss pathway however due to unexpected health issues with her , she has decided to transition to our medical weight loss pathway. Her initial weight on 09/23/2023 was 258.4 lb with a BMI of 44.4. Weight today is 228.4 lb with a BMI of 39.2. This reflects a 30 lb weight loss or 11.6% total body weight loss. She states that she has significantly increased her water intake and feels fantastic. She is following the meal plan as described below. She states her hunger has returned, around noon time for the rest of the day. She had cortisone injection for her right knee that only lasted 2 weeks and the has pain in the left foot now. She is somewhat following the meal plan. She has had heaping forkfuls. She has to be mindful of what she is doing Current meal plan includes: 1 Celebrate Rebuild shakes, (2 scoops in 16 oz unsweetened almond milk) at 8am-10am meal w 7 forks protein and 7 forks veggies at 11am-1pm. Fresh fruit Dinner at 5pm (7 forks of protein and 7 forks of salad/vegetables). Ukrainian yogurt with 1/2 cup fresh berries or celebrate protein bar after dinner, 7 pm Drinking 70-80 oz of water Current exercise plan includes: Joined [employer] 4 x per week water aerobics, yoga, silver sneakers. 1 hour each (10 am) [facility] Medical History Bleeding hemorrhoids Osteoarthritis cervical spine Fibromyalgia Surgical History History of left knee replacement H/O colonoscopy History of carpal tunnel surgery S/P cholecystectomy H/O: hysterectomy Family History Father Colorectal cancer Paternal Grandmother Diabetes Mother Hypertension Lung cancer Social History Household Members Other:: , works from home, no exercise Housing: House Alcohol intake: never Patient Tobacco Use Status: Former Tobacco user Tobacco use type: Cigarette e-Cigarette/Vaping Use: Never Used service: No Current occupational status: employed 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 She is lost 30 lb. She has learned a tremendous amount and is satisfied with her meal plan. I did make the suggestion to her that if she is to have a plateau in her weight loss, to consider changing her exercise routine. She will follow up in the office as needed. Telehealth Telehealth Location of provider rendering services: practice address Location of patient: address on file Patient Identification confirmed using: Name, : Yes Telehealth method: voice only Patient verbally consented to treatment: Yes Patient verbally consented to billing insurance company: Yes Patient informed of any privacy concerns related to visit: Yes Minutes spent on Phone/Video with Pt.: 12 Coding Level of Care Code Tele Est Pt Level 2 (01766) Diagnoses Obese E66.9 Time Spent (min) 15
[2024-02-16 09:34] VITALS: BMI 39.2
== END 2024-02-16 14:44 | disposition home or self-care (01) ==
LOC: HO.HBS 14:42
PROVIDERS: PCP Internal Medicine; Visit Provider Physician Assistant Surgical
DX: E66.9 Obesity, unspecified (principal); Z68.39 Body mass index [BMI] 39.0-39.9, adult
CPT/HCPCS: 99442

== ENCOUNTER → 2024-02-16 14:42 | Outpatient (BNVA) | payer MEDICARE, SELFPAY | PROVIDERS: PCP Internal Medicine; Visit Provider Physician Assistant Surgical ==

== ENCOUNTER 2024-04-06 09:21 | Outpatient (REF) | payer MEDICARE, SELFPAY ==
--- NOTE | ~2024-04-06 | XR_ITS ---
EXAMINATION: XR HAND, RIGHT CLINICAL INFORMATION: Right hand pain. COMPARISON: None available. TECHNIQUE: PA, lateral, and oblique views of the right hand. FINDINGS: Degenerative changes are present in the right hand with moderate changes in the interphalangeal joints, distal greater than proximal as well as at the 1st CMC joint and the triscaphe joint. Milder degenerative change with some mild narrowing present at the radiocarpal joint. Osseous density superior to the ulnar styloid probably secondary to remote trauma. No acute fractures. No chondrocalcinosis. XR/XR hand RT min 3V IMPRESSION: Degenerative changes in the right hand as described above.
== END 2024-04-06 09:22 | disposition home or self-care (01) ==
LOC: HO.HOSX 09:21
PROVIDERS: Visit Provider Orthopaedic Surgery
DX: M18.11 Unilateral primary osteoarthritis of first carpometacarpal joint, right hand (principal); M18.12 Unilateral primary osteoarthritis of first carpometacarpal joint, left hand; M79.7 Fibromyalgia; R20.0 Anesthesia of skin; R20.2 Paresthesia of skin
CPT/HCPCS: 20600; 73130; 99202; J1010

== ENCOUNTER 2024-04-06 10:28 | Outpatient (AMB) | payer MEDICARE, SELFPAY ==
--- NOTE | 2024-04-06 10:33 | MHC.OFFVIS ---
Vital Signs 04/06/24 10:47 Height 5 ft 4 in Weight 228 lb BMI 39.1 Intake Visit Reasons: Newprob-B/L hand pain/arthritis, right hand worse Intake Note: Nahomy is a 68 year old right hand dominant female who presents today for a new problem visit with complaints of bilateral hand pain, right > left. Patient reports that she has had pain at the base of her thumbs ongoing for years now. She reports history of basal joint injections about 2 years ago which only offered a short amount of relief. She explains that she feels tightness and burning in the palm of bother of her hands. She does have some mild numbness along the ulnar aspect of the hand to the tips of the 4th and 5th digits. Patient reports history of right Carpal Tunnel Release years ago, she was also diagnosed with Left CTS but never moved forward with CTR Allergies aspirin [ASPIRIN] Adverse Reaction (Unknown, Verified 04/06/24 10:51) STOMACH SENSITIVITY ibuprofen [IBUPROFEN] Adverse Reaction (Unknown, Verified 04/06/24 10:51) STOMACH SENSITIVITY HPI HPI Newprob-B/L hand pain/arthritis, right hand worse: Details: Nahomy is a 68 year old right hand dominant woman who presents with multiple complaints today. Her primary complaint today is of pain at the base of her thumbs, R>L. Her pain is worse with pinching & gripping activities. She has a hx of bilateral basal joint injections in ~2021 at an outside clinic. She says these gave her short term relief. She says she has some relief from thumb braces, which she wears at home. She also complains of a tightness & burning sensation in her palms. She denies any locking or catching of her fingers. She complains of some numbness in her left small, ring, and middle fingers, and ulnar aspect of her hand. She has a hx of left carpal tunnel syndrome, but denies having a left carpal tunnel release. She has a hx of a right carpal tunnel release in [ ], with good relief & normal sensation following her surgery. 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 She says he is self-sufficient at this time but he does worsen occasionally. She has a hx of Fibromyalgia, she says she was tested in 2005 for RA and her bloodwork was negative at the time. [facility] Medical History (Updated 04/06/24 @ 11:26 by Skyler Castaneda) Bleeding hemorrhoids Osteoarthritis cervical spine Fibromyalgia Surgical History (Updated 04/06/24 @ 10:52 by Yomaira Rubi [facility]) History of left knee replacement H/O colonoscopy History of carpal tunnel surgery S/P cholecystectomy H/O: hysterectomy Family History Father Colorectal cancer Paternal Grandmother Diabetes Mother Hypertension Lung cancer Social History Household Members Other:: , works from home, no exercise Housing: House Alcohol intake: never Patient Tobacco Use Status: Former Tobacco user Tobacco use type: Cigarette e-Cigarette/Vaping Use: Never Used service: No Current occupational status: employed 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 Cognitive needs: No Hearing needs: No Vision needs: Yes Review of Systems Const All systems reviewed & are unremarkable except as noted in HPI and below Physical Exam Vital Signs: BMI result Body Mass Index 39.1 Const General: cooperative, healthy appearing and no acute distress Orientation/consciousness: patient oriented x3 HEENT Head: Yes normocephalic and Yes atraumatic Eyes EOM: EOMs intact bilaterally Resp Effort & Inspection: normal respiratory effort and able to speak in complete sentences Cardio Jugular venous distension: no JVD Skin General skin exam: turgor normal Rashes: no rashes Neuro General: patient oriented x3 Extrem Other: Evaluation of Right Upper Extremity: The patient is alert, oriented, and in no acute distress Neuro: Median, Ulnar, Radial nerves motor and sensory intact and sensation is normal to the tips of all digits today in clinic No thenar or intrinsic wasting Good APB muscle belly firing and good finger cross Vascular: Cap refill brisk ROM: She can make a fist and extend all her digits No locking or catching Skin: No lacerations or abrasions. General: No Ecchymosis. No Erythema or evidence of infection. Most tender over the basal joints bilaterally Pos shoulder sign bilaterally Mild tenderness over the right thumb a1 xiang, no locking or catching No tenderness over the 1st dorsal compartment Negative Ann test bilaterally Radiographs: 3 views of the right hand were taken and viewed by me today in clinic. They show an old healed ulnar styloid fracture. She has some basal joint arthritis, with subluxation, joint space narrowing, and early osteophyte formation. She also has some STT joint narrowing & generalized arthritic changes best seen in the PIP joints Psych Appearance: grossly normal Affect: normal affect Attitude: cooperative Office Procedures Fracture Care Details: No fracture, injection x 2 Fracture Billing Code: Fracture Billing Code Assessment & Plan Assessment & Plan (1) Osteoarthritis of carpometacarpal joint of right thumb: Code(s): M18.11 - Unilateral primary osteoarthritis of first carpometacarpal joint, right hand Category: Medical (2) Osteoarthritis of carpometacarpal joint of left thumb: Code(s): M18.12 - Unilateral primary osteoarthritis of first carpometacarpal joint, left hand Category: Medical (3) Numbness and tingling in left hand: Code(s): R20.0 - Anesthesia of skin; R20.2 - Paresthesia of skin Category: Medical (4) Fibromyalgia: Code(s): M79.7 - Fibromyalgia Category: Medical Plan Assessment & Plan: 1. Right basal joint arthritis Hx of injections in the past, with some relief This is her primary complaint today 2. Left basal joint arthritis Hx of injections in the past, with some relief I educated her about this condition I discussed operative and non-operative treatment options The patient would like to proceed with an injection I discussed activity modification, they should limit or avoid any heavy or repetitive pinching or gripping activities She has a brace at home that she likes to wear. It sounds like a hand based thumb spica splint. Injection #1 : The risks and benefits of a steroid injection including but not limited to risk of damage to blood vessels, nerve, tendon, infection, skin bleaching, persistent or worsening pain, and failure to improve symptoms were discussed with the patient and they wish to proceed with the steroid injection. Once consent was obtained the skin over the dorsum of the Right basal joint was sterilely prepped. The joint was then injected with a combination of 1 mL of (40 mg/ml} Depo-Medrol and 1% plain Lidocaine. The patient appears to have tolerated the procedure well and with no complications. She had good early relief before leaving clinic today. She knows that they may not have another steroid injection into this joint for least 4 months. Injection #2: The risks and benefits of a steroid injection including but not limited to risk of damage to blood vessels, nerve, tendon, infection, skin bleaching, persistent or worsening pain, and failure to improve symptoms were discussed with the patient and they wish to proceed with the steroid injection. Once consent was obtained the skin over the dorsum of the Left basal joint was sterilely prepped. The joint was then injected with a combination of 1 mL of (40 mg/ml} Depo-Medrol and 1% plain Lidocaine. The patient appears to have tolerated the procedure well and with no complications. She had good early relief before leaving clinic today. She knows that they may not have another steroid injection into this joint for least 4 months. 3. Left hand numbness In the ulnar nerve distribution & middle finger 4. History of left carpal tunnel syndrome, patient-reported I ordered a NCS to assess for peripheral nerve compression She will follow up when completed for review 5. History of right carpal tunnel release [ ], at an outside clinic With normal sensation and no complaints today Scribed for Shea Banuelos MD by Skyler Castaneda medical records director, on 04/06/24 at 11:25 AM, EST. Orders: Orders XR hand RT min 3V Today M79.641 - Pain in right hand NE nerve conduction velocity Today R20.0 - Anesthesia of skin, R20.2 - Paresthesia of skin Coding Level of Care Code New Pt Level 4 (64955) Diagnoses Osteoarthritis of carpometacarpal joint of right thumb M18.11 Osteoarthritis of carpometacarpal joint of left thumb M18.12 Numbness and tingling in left hand R20.0; R20.2 Fibromyalgia M79.7 CPT Codes Fracture Care - Fracture Billing Code: Fracture Billing Code ([id number])
[2024-04-06 10:47] VITALS: BMI 39.1
== END 2024-04-06 11:46 | disposition home or self-care (01) ==
PROVIDERS: PCP Internal Medicine; Visit Provider Orthopaedic Surgery
DX: M18.0 Bilateral primary osteoarthritis of first carpometacarpal joints (principal); R20.0 Anesthesia of skin; R20.2 Paresthesia of skin; M79.7 Fibromyalgia
CPT/HCPCS: 20600; 99204

== ENCOUNTER 2024-04-13 13:48 | Outpatient (REF) | payer MEDICARE, SELFPAY ==
--- NOTE | 2024-04-13 13:50 | EMG_ITS ---
Chief complaint: Left hand numbness, affecting 3rd to 5th digits. Been told to have Carpal Tunnel Syndrome on left but has not had surgery, back in 2005. Reason for referral: Evaluate for ulnar neuropathy versus Carpal Tunnel Syndrome Referred by: Dr. Banuelos Procedure done: Left upper extremity NCS/EMG Precautions and/or limitations: None The limb temperature was monitored continuously and remained between 32-36 degrees C during the performance of the NCS. Ulnar motor NCS was performed with moderate elbow flexion between 70-90 degrees, with across-elbow distance of 10 cm. Nerve Conduction Studies Anti Sensory Summary Table ?Stim Site NR Onset (ms) Norm Onset (ms) Peak (ms) Norm Peak (ms) O-P Amp (?V) Norm O-P Amp Site1 Site2 Delta-0 (ms) Dist (cm) Franco (m/s) Norm Franco (m/s) Left Median Anti Sensory (2nd Digit) Wrist ? 2.9 3.6 <3.6 24.2 >10 Wrist 2nd Digit 2.9 14.0 48 Left Radial Anti Sensory (Thumb) Forearm ? 1.6 2.3 <3.1 22.8 Forearm Thumb 1.6 0.0 Left Ulnar Anti Sensory (5th Digit) Wrist ? 2.5 3.3 <3.7 14.0 >15.0 Wrist 5th Digit 2.5 14.0 56 Motor Summary Table ?Stim Site NR Onset (ms) Norm Onset (ms) O-P Amp (mV) Norm O-P Amp iAmp (mV) Amp (1st) (%) Site1 Site2 Delta-0 (ms) Dist (cm) Franco (m/s) Norm Franco (m/s) Left Median Motor (Abd Poll Brev) Wrist ? 3.9 <3.9 7.4 >4.5 9.0 100.0 Elbow Wrist 3.7 19.5 53 >45 Elbow ? 7.6 6.6 8.3 89.2 Left Ulnar Motor (Abd Dig Minimi) Wrist ? 3.0 <3.0 7.2 >5 9.1 100.0 B Elbow Wrist 2.6 17.0 65 >45 B Elbow ? 5.6 5.7 7.4 79.2 A Elbow B Elbow 2.1 10.0 48 >45 A Elbow ? 7.7 5.2 6.4 72.2 EMG ?Side Muscle Nerve Root Ins Act Fibs Psw Amp Dur Poly Recrt Int Pat Comment Left 1stDorInt Ulnar C8-T1 Nml Nml Nml Nml Nml 0 Nml Complete Left Biceps Musculocut C5-6 Nml Nml Nml Nml Nml 0 Nml Complete Left Triceps Radial C6-7-8 Nml Nml Nml Nml Nml 0 Nml Complete Left Deltoid Axillary C5-6 Nml Nml Nml Nml Nml 0 Nml Complete Left FlexCarpiUln Ulnar C8,T1 Nml Nml Nml Nml Nml 0 Nml Complete FINDINGS: Left ulnar motor nerve showed normal distal latency, slight decrease in amplitude proximally and slight slowing of conduction velocity across the elbow. Left ulnar sensory nerve showed normal peak latency but small amplitude. Concentric needle EMG was performed in selected muscles of the left upper extremity. Study did not reveal signs of electric abnormalities as shown in the table below. IMPRESSION: 1. This is a normal study. 2. 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 3. There is no electrodiagnostic evidence for median neuropathy, brachial plexopathy, or cervical radiculopathy. Thank you for your kind referral. Jennifer Mcleod MD, NAVEED Board Certified, [place] [employer] and [employer] (ABPMR) Board Certified, [place] [employer] Electrodiagnostic [employer] (ABEM) [facility] [id number] [facility]
== END 2024-04-13 13:49 | disposition home or self-care (01) ==
LOC: HO.NEURO 13:48
PROVIDERS: PCP Internal Medicine; Visit Provider Orthopaedic Surgery
DX: R20.0 Anesthesia of skin (principal); R20.2 Paresthesia of skin
CPT/HCPCS: 95886; 95909

== ENCOUNTER → 2024-04-13 13:50 | Outpatient (BNV) | payer MEDICARE, SELFPAY | PROVIDERS: PCP Internal Medicine; Visit Provider Physical Medicine & Rehabilitation | DX: G56.22 Lesion of ulnar nerve, left upper limb (principal); R20.0 Anesthesia of skin; R20.2 Paresthesia of skin | CPT/HCPCS: 95886; 95907 ==

== ENCOUNTER 2024-04-14 11:17 | Outpatient (AMB) | payer MEDICARE, SELFPAY ==
--- NOTE | 2024-04-14 11:21 | A.OFFVIS_ITS ---
Vital Signs 04/14/24 11:25 Height 5 ft 4 in Weight 235 lb 4 oz BMI 40.4 BP 138/66 Blood Pressure Location Lt brachial Position Sitting Pulse 78 Pulse Source Pulse Oximeter Pulse Oximetry (%) 97 Oxygen Delivery Method Room Air Intake Visit Reasons: Unilateral primary osteoarthritis, right knee Intake Note: Pain today while walking 6/10, sitting 3/10 Allergies aspirin [ASPIRIN] Adverse Reaction (Unknown, Verified 04/14/24 11:25) STOMACH SENSITIVITY ibuprofen [IBUPROFEN] Adverse Reaction (Unknown, Verified 04/14/24 11:25) STOMACH SENSITIVITY HPI HPI Unilateral primary osteoarthritis, right knee: Details: Patient is a very pleasant 68-year-old female is history of bilateral knee osteoarthritis, status post left total knee replacement presents today for initial evaluation of right knee pain. She was referred to us by [facility] for potential genicular RFA or Sprint PNS trial. Per Orthopedic notes review, patient injured her knee in 08/2023 when her foot got caught in a chair and she twisted her knee. Right knee pain localized to medial and anterior aspects with crepitation with extension and flexion. Knee pain is increased with walking, ascending and descending stairs. Pain affects her daily activities and functioning. Pain is rated at 7/10 with any movement or activity and 3/10 when resting. Most recent knee xray and MRI are noted below. Patient reports receiving multiple cortisone injections and Durolane gel injections x2 with minimal relief. She would like to avoid right knee surgery at this time and is interested in interventional treatments to obtain longer pain relief than with injections. Patient also reports widespread pain consistent with fibromyalgia. She was attending gym and swimming earlier this year but had to stop it due to increased right knee pain. Denies any fever, chills, abdominal or groin pain, back or hip pain, weakness, locking or buckling knee, bladder or bowel dysfunction or saddle anesthesia. Location: Right knee, anterior and medial aspects Duration: Chronic, worsening for past 9 months Characteristics of symptom or complaint: Sharp, stabbing, aching, dull, sore, hurting, tiring, heavy Aggravating or associated factors: Walking, standing, weight-bearing, climbing and descending stairs, movement Relieving factors: Celebrex, sitting with leg raised, Tylenol, Biofreeze, Arnica Treatment: Gel injection 5 weeks ago, cortisone injections, gym, swimming FOR[facility]LY [facility], [facility] Medical History Bleeding hemorrhoids Osteoarthritis cervical spine Fibromyalgia Surgical History History of left knee replacement H/O colonoscopy History of carpal tunnel surgery S/P cholecystectomy H/O: hysterectomy Family History Father Colorectal cancer Paternal Grandmother Diabetes Mother Hypertension Lung cancer Social History Household Members Other:: , works from home, no exercise Housing: House Alcohol intake: never Patient Tobacco Use Status: Former Tobacco user Tobacco use type: Cigarette e-Cigarette/Vaping Use: Never Used service: No Current occupational status: employed 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 No acute distress. Alert and oriented. Mood and affect appropriate. Follows and participates in conversation appropriately. Respiratory effort is unlabored. No cough. Able to transition from sit to stand unassisted. Ambulates with bilaterally normal heel strike and toe off. Back/Spine/Pelvis Cervical Spine: cervical ROM normal and No Cervical spine tenderness Thoracic/Lumbar Spine: thoracic and lumbar spine normal to inspection, thoraco- lumbar ROM normal, Lasegue's sign negative, straight leg raise negative bilaterally, thoraco-lumbar ROM limited, No thoracic spinal tenderness and No lumbar spinal tenderness Extrem General: Yes capillary refill normal, Yes no clubbing, cyanosis or edema and Yes no calf tenderness Right lower extremity: knee (Limited ROM due to pain.) Details: normal to inspection, tenderness Location: of the medial joint line and of the pre- patellar area and crepitus; no swelling, no ecchymosis, no deformity and no unusual warmth Results Reviewed Results Reviewed: XR KNEE AP STANDING, BILATERAL XR KNEE RIGHT, ONE VIEW 11/12/23 CLINICAL INFORMATION: Knee pain COMPARISON: 08/31/2023 FINDINGS: AP standing view of both knees: Normal alignment at the left knee, status post joint replacement surgery. The visualized femoral and tibial prosthetic hardware is in normal position. No osteolysis or fracture around the hardware. At the right knee, there is [id number] narrowing of the joint space and marginal osteophyte formation at medial lateral tibiofemoral compartments. Right knee sunrise view: The patella is well-positioned within the trochlear groove. Marginal osteophytes are present at the mildly degenerated joint. No fracture or subluxation. IMPRESSION: Overall, there is mild tricompartmental osteoarthritis of the right knee with narrowing of the medial tibiofemoral joint space. No fracture or subluxation. Left knee arthroplasty components are in normal position. MR RIGHT KNEE without CONTRAST 09/11/23 at [facility] [place] INDICATION: Twisted knee while walking 4 weeks ago, pain radiating up into hip. TECHNIQUE: Multi planar fat and water sensitive sequences of the right knee were obtained without intravenous contrast. COMPARISON: None. FINDINGS: Medial compartment: Medial meniscus: Small undersurface tear posterior horn of the medial meniscus. Mild partial tear posterior root medial meniscus present. Medial articular surface: Moderate medial compartment chondrosis seen. Mild intraosseous cyst formation underneath posterior medial meniscal root. Lateral compartment: Lateral meniscus: Signal and morphology of the lateral meniscus is within normal limits without evidence of meniscal tear. Lateral articular surface: No focal lateral compartment articular abnormalities identified. Patellofemoral joint space: There is moderate to advanced patellofemoral degenerative change. Ligaments and tendons: The ACL anteromedial and posterolateral bundles are unremarkable, without evidence of ACL injury. The PCL is within normal limits without evidence of tear or significant degeneration. The collateral ligamentous structures, including the MCL and fibular collateral ligaments are within normal limits without tear. Laterally the iliotibial band and popliteus tendons are intact. Postero-medially, semimembranosus, sartorius, gracilis and semitendinosus ten dons are within normal limits. Quadriceps tendon is within normal limits. Gastrocnemius muscle insertions appear normal. Patellar tendon reveals no tear or significant tendinopathy. Soft tissues and bone marrow: Moderate joint effusion. Fluid in popliteal recess present. Marrow signal is within normal limits. No stress reaction or focal osseous lesions are identified. IMPRESSION: 1. Undersurface tear posterior horn medial meniscus and mild partial tear posterior root medial meniscus with moderate medial compartment chondrosis. 2. Moderate to advanced patellofemoral degenerative change. 3. Moderate joint effusion. Assessment & Plan Assessment & Plan (1) Osteoarthritis of right knee: Code(s): M17.11 - Unilateral primary osteoarthritis, right knee Category: Medical (2) Right knee pain: Code(s): M25.561 - Pain in right knee Category: Medical (3) Morbid obesity: Code(s): E66.01 - Morbid (severe) obesity due to excess calories Category: Medical (4) Fibromyalgia: Code(s): M79.7 - Fibromyalgia Category: Medical Plan Recommend formal physical therapy to reduce pain and optimize mobility, improve strength, proprioception, and neuromuscular coordination. Script provided. Schedule Right Diagnostic Genicular Nerve Block with local and fluoroscopy for potential genicaular RFA procedure. We also discussed Sprint PNS trial and PRP treatments. Informational pamphlets provided. Expectations, risks and benefits were reviewed. Patient is aware she will be contacted to schedule this procedure. Script provided for lidocatine patches. Continue daily physical activity as tolerated, weight loss, adequate hydration, and aqua therapy. All questions were answered and the patient is in agreement of plan. Follow-up after injections and sooner as needed. Orders: Orders PT Evaluation and Treatment Today M17.11 - Unilateral primary osteoarthritis, right knee, M25.561 - Pain in right knee Medications: New lidocaine 5% leave on most painful area for up to 12 hrs topical 30 ea 1RF pain M17.11 - Unilateral primary osteoarthritis, right knee, M25.561 - Pain in right knee Coding Level of Care Code New Pt Level 4 (55475) Diagnoses Osteoarthritis of right knee M17.11 Right knee pain M25.561 Morbid obesity E66.01 Fibromyalgia M79.7
[2024-04-14 11:25] VITALS: BP 138/66; PULSE 78; O2SAT 97; BMI 40.4
== END 2024-04-14 11:36 | disposition home or self-care (01) ==
PROVIDERS: PCP Internal Medicine; Referring Provider Internal Medicine; Visit Provider Nurse Practitioner Family
DX: M17.11 Unilateral primary osteoarthritis, right knee (principal); M25.561 Pain in right knee; E66.01 Morbid (severe) obesity due to excess calories; M79.7 Fibromyalgia
CPT/HCPCS: 99204; 99214

== ENCOUNTER → 2024-04-14 11:17 | Outpatient (BNVA) | payer MEDICARE, SELFPAY | PROVIDERS: PCP Internal Medicine; Referring Provider Internal Medicine; Visit Provider Nurse Practitioner Family | DX: M17.11 Unilateral primary osteoarthritis, right knee (principal); M25.561 Pain in right knee; M79.7 Fibromyalgia; E66.01 Morbid (severe) obesity due to excess calories; Z68.41 Body mass index [BMI] 40.0-44.9, adult; Z96.652 Presence of left artificial knee joint | CPT/HCPCS: 99202 ==

== ENCOUNTER 2024-05-17 07:29 | Outpatient (REF) | payer MEDICARE, SELFPAY ==
--- NOTE | ~2024-05-17 | FL_ITS ---
EXAMINATION: XR FLUOROSCOPY WITH IMAGES CLINICAL INFORMATION: Knee pain. COMPARISON: None available. TECHNIQUE: Fluoroscopy Supervised By: Dr. Fleming. Fluoroscopy Time: 23.9. Cumulative Dose: 3.1357 mGy. DAP: 1.3640 Gycm2. Images: 2. FINDINGS: Intraoperative fluoroscopy and spot films were performed during a procedure in the OR. Bilateral needles are seen at the metaphyseal cortices of the distal femur medially and laterally. Single needle is present overlying the medial tibial metaphysis. Please correlate with Dr. Fleming's report for complete details. FL/FL guidance in treatment room IMPRESSION: Intraoperative fluoroscopy and spot films were obtained. Please see Dr. Fleming's report for complete details.
== END 2024-05-17 07:30 | disposition home or self-care (01) ==
LOC: CF 07:29
PROVIDERS: Visit Provider Anesthesiology
DX: M17.11 Unilateral primary osteoarthritis, right knee (principal); M79.7 Fibromyalgia; E66.01 Morbid (severe) obesity due to excess calories
CPT/HCPCS: 64454; J2795

== ENCOUNTER 2024-05-17 13:20 | Outpatient (AMB) | payer MEDICARE, SELFPAY ==
--- NOTE | 2024-05-17 14:05 | MHC.OFFVIS ---
Vital Signs 05/17/24 15:02 05/17/24 15:02 Height 5 ft 4 in 5 ft 4 in Weight 235 lb 4 oz 235 lb 4 oz BMI 40.4 40.4 BP 140/74 H 132/80 Blood Pressure Location Lt brachial Lt brachial Position Sitting Sitting Respiration 16 16 Pulse 70 63 Pulse Source Pulse Oximeter Pulse Oximeter Pulse Oximetry (%) 97 98 Oxygen Delivery Method Room Air Room Air Comment pre-op post-op Intake Visit Reasons: RIGHT DIAGNOSTIC GENICULAR NERVE BLOCK Allergies aspirin [ASPIRIN] Adverse Reaction (Unknown, Verified 05/17/24 15:03) STOMACH SENSITIVITY ibuprofen [IBUPROFEN] Adverse Reaction (Unknown, Verified 05/17/24 15:03) STOMACH SENSITIVITY PFSH Medical History Bleeding hemorrhoids Osteoarthritis cervical spine Fibromyalgia Surgical History History of left knee replacement H/O colonoscopy History of carpal tunnel surgery S/P cholecystectomy H/O: hysterectomy Family History Father Colorectal cancer Paternal Grandmother Diabetes Mother Hypertension Lung cancer Social History Household Members Other:: , works from home, no exercise Housing: House Alcohol intake: never Patient Tobacco Use Status: Former Tobacco user Tobacco use type: Cigarette e-Cigarette/Vaping Use: Never Used service: No Current occupational status: employed 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 Bella Vang is very pleasant 68 years old female who came today into the operating room to receive diagnostic genicular nerve block. Informed consent was explained to the patient. Risks and benefits were explained. The patient was taken to the operating room and positioned supine on the operating table. The area of the right knee was prepped with ChloraPrep and draped with adhesive utility towels. Sterilely draped C-arm was brought over the operating field and picture of the right knee was demonstrated on the screen. The point of interest were delineated as: for superior medial genicular nerve (suprapatellar saphenous nerve) as a confluence of the silhouette of metaphysis of the medial right femur with silhouette of the epiphysis on the medial side, inferior medial genicular nerve (infrapatellar saphenous nerve) as the confluence of the silhouette of the metaphysis of the medial right tibia with silhouette of the epiphysis of the medial right tibia, for superior lateral genicular nerve block as the confluence of the silhouette of metaphysis of the lateral right femur with silhouette of epiphysis on the lateral side of the right femur. The projection of the point of interest to the skin were injected to local anesthetic mixture lidocaine 2 % and ropivacaine 0,5% one-to-one. After that three 22 gauge 3-1/2 inch needles were driven to the points of interest until the needle gently contacted the bone. After that position of the C-arm was changed for the lateral view. The medial and lateral condyles were superimposed on the view by adjusting the photoengraver of the C-arm. After that care was taken to position the tips of the needles in the projection of the mid shaft of the both bones. When satisfactory image was obtained injection of the ropivacaine 0.5% into each needle location was performed no more than 1.5 cc. Upon completion of the injection the needles were withdrawn sterile Band-Aids were applied. Patient tolerated procedure well. She was taken outside of the operating room to recovery room where she recovered uneventfully. She went home without immediate complications. (3) Morbid obesity: Code(s): E66.01 - Morbid (severe) obesity due to excess calories Category: Medical (4) Fibromyalgia: Code(s): M79.7 - Fibromyalgia Category: Medical Plan Recommend formal physical therapy to reduce pain and optimize mobility, improve strength, proprioception, and neuromuscular coordination. Script provided. Schedule Right Diagnostic Genicular Nerve Block with local and fluoroscopy for potential genicaular RFA procedure. We also discussed Sprint PNS trial and PRP treatments. Informational pamphlets provided. Expectations, risks and benefits were reviewed. Patient is aware she will be contacted to schedule this procedure. Script provided for lidocatine patches. Continue daily physical activity as tolerated, weight loss, adequate hydration, and aqua therapy. All questions were answered and the patient is in agreement of plan. Follow-up after injections and sooner as needed. Orders: Orders FL guidance in treatment room 05/17/24 M25.561 - Pain in right knee Coding Level of Care Code Procedure Only Diagnoses Osteoarthritis of right knee M17.11 Right knee pain M25.561 Morbid obesity E66.01 Fibromyalgia M79.7
[2024-05-17 15:02] VITALS: BP 132/80; BP 140/74; PULSE 63; PULSE 70; RESP 16; O2SAT 97; O2SAT 98; BMI 40.4
== END 2024-05-17 14:46 | disposition home or self-care (01) ==
LOC: HO.PMCPRC 13:20
PROVIDERS: PCP Internal Medicine; Visit Provider Anesthesiology
DX: M25.561 Pain in right knee (principal); M17.11 Unilateral primary osteoarthritis, right knee; E66.01 Morbid (severe) obesity due to excess calories; M79.7 Fibromyalgia
CPT/HCPCS: 64454

== ENCOUNTER 2024-05-23 09:34 | Outpatient (AMB) | payer MEDICARE, SELFPAY ==
--- NOTE | 2024-05-23 09:38 | A.OFFVIS_ITS ---
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 Fleming. Patient reports 70% pain relief for 6 hours since procedure with improved walking but no significant pain relief with climbing stairs or anterior knee pain. She reports procedure itself was traumatizing experience and is no longer wishes to proceed with additional interventions at this time, including Sprint PNS trial. She continues with physical therapy and considers potential right TKR if symptoms worsens. Denies any recent cough, cold, infection, fever, any significant changes in her medical history, medications or recent hospitalizations. Past Procedures: 05/17/24: Right Diagnostic GNB-70% pain relief for 6 hours PRIOR: Patient is a very pleasant 68-year-old female is history of bilateral knee osteoarthritis, status post left total knee replacement presents today for initial evaluation of right knee pain. She was referred to us by [facility] for potential genicular RFA or Sprint PNS trial. Per Orthopedic notes review, patient injured her knee in 08/2023 when her foot got caught in a chair and she twisted her knee. Right knee pain localized to medial and anterior aspects with crepitation with extension and flexion. Knee pain is increased with walking, ascending and descending stairs. Pain affects her daily activities and functioning. Pain is rated at 7/10 with any movement or activity and 3/10 when resting. Most recent knee xray and MRI are noted below. Patient reports receiving multiple cortisone injections and Durolane gel injections x2 with minimal relief. She would like to avoid right knee surgery at this time and is interested in interventional treatments to obtain longer pain relief than with injections. Patient also reports widespread pain consistent with fibromyalgia. She was attending gym and swimming earlier this year but had to stop it due to increased right knee pain. Denies any fever, chills, abdominal or groin pain, back or hip pain, weakness, locking or buckling knee, bladder or bowel dysfunction or saddle anesthesia. Location: Right knee, anterior and medial aspects Duration: Chronic, worsening for past 9 months Characteristics of symptom or complaint: Sharp, stabbing, aching, dull, sore, hurting, tiring, heavy Aggravating or associated factors: Walking, standing, weight-bearing, climbing and descending stairs, movement Relieving factors: Celebrex, sitting with leg raised, Tylenol, Biofreeze, Arnica Treatment: Gel injection 5 weeks ago, cortisone injections, gym, swimming [facility] Medical History Bleeding hemorrhoids Osteoarthritis cervical spine Fibromyalgia Surgical History History of left knee replacement H/O colonoscopy History of carpal tunnel surgery S/P cholecystectomy H/O: hysterectomy Family History Father Colorectal cancer Paternal Grandmother Diabetes Mother Hypertension Lung cancer Social History Household Members Other:: , works from home, no exercise Housing: House Alcohol intake: never Patient Tobacco Use Status: Former Tobacco user Tobacco use type: Cigarette e-Cigarette/Vaping Use: Never Used service: No Current occupational status: employed 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 No acute distress. Alert and oriented. Mood and affect appropriate. Follows and participates in conversation appropriately. Respiratory effort is unlabored. No cough. Able to transition from sit to stand unassisted. Ambulates with bilaterally normal heel strike and toe off, mild limping on the right. Extrem General: Yes capillary refill normal, Yes no clubbing, cyanosis or edema and Yes no calf tenderness Right lower extremity: knee (Limited ROM due to pain.) Details: normal to inspection, tenderness (anterior knee) and crepitus; no swelling, no ecchymosis and no unusual warmth Results Reviewed Results Reviewed: XR KNEE AP STANDING, BILATERAL XR KNEE RIGHT, ONE VIEW 11/12/23 CLINICAL INFORMATION: Knee pain COMPARISON: 08/31/2023 FINDINGS: AP standing view of both knees: Normal alignment at the left knee, status post joint replacement surgery. The visualized femoral and tibial prosthetic hardware is in normal position. No osteolysis or fracture around the hardware. At the right knee, there is [id number] narrowing of the joint space and marginal osteophyte formation at medial lateral tibiofemoral compartments. Right knee sunrise view: The patella is well-positioned within the trochlear groove. Marginal osteophytes are present at the mildly degenerated joint. No fracture or subluxation. IMPRESSION: Overall, there is mild tricompartmental osteoarthritis of the right knee with narrowing of the medial tibiofemoral joint space. No fracture or subluxation. Left knee arthroplasty components are in normal position. MR RIGHT KNEE without CONTRAST 09/11/23 at [facility] INDICATION: Twisted knee while walking 4 weeks ago, pain radiating up into hip. TECHNIQUE: Multi planar fat and water sensitive sequences of the right knee were obtained without intravenous contrast. COMPARISON: None. FINDINGS: Medial compartment: Medial meniscus: Small undersurface tear posterior horn of the medial meniscus. Mild partial tear posterior root medial meniscus present. Medial articular surface: Moderate medial compartment chondrosis seen. Mild intraosseous cyst formation underneath posterior medial meniscal root. Lateral compartment: Lateral meniscus: Signal and morphology of the lateral meniscus is within normal limits without evidence of meniscal tear. Lateral articular surface: No focal lateral compartment articular abnormalities identified. Patellofemoral joint space: There is moderate to advanced patellofemoral degenerative change. Ligaments and tendons: The ACL anteromedial and posterolateral bundles are unremarkable, without evide nce of ACL injury. The PCL is within normal limits without evidence of tear or significant degeneration. The collateral ligamentous structures, including the MCL and fibular collateral ligaments are within normal limits without tear. Laterally the iliotibial band and popliteus tendons are intact. Postero-medially, semimembranosus, sartorius, gracilis and semitendinosus tendons are within normal limits. Quadriceps tendon is within normal limits. Gastrocnemius muscle insertions appear normal. Patellar tendon reveals no tear or significant tendinopathy. Soft tissues and bone marrow: Moderate joint effusion. Fluid in popliteal recess present. Marrow signal is within normal limits. No stress reaction or focal osseous lesions are identified. IMPRESSION: 1. Undersurface tear posterior horn medial meniscus and mild partial tear posterior root medial meniscus with moderate medial compartment chondrosis. 2. Moderate to advanced patellofemoral degenerative change. 3. Moderate joint effusion. Assessment & Plan Assessment & Plan (1) Osteoarthritis of right knee: Code(s): M17.11 - Unilateral primary osteoarthritis, right knee Category: Medical (2) Right knee pain: Code(s): M25.561 - Pain in right knee Category: Medical (3) Morbid obesity: Code(s): E66.01 - Morbid (severe) obesity due to excess calories Category: Medical (4) Fibromyalgia: Code(s): M79.7 - Fibromyalgia Category: Medical Plan Patient is status post right diagnostic GNB last week with 70% improvement in walking but minimal relief in pain with climbing stairs. At this time, she will follow up with Orthopedic provider as she no longer interested to proceed with genicular RFA or Sprint PNS procedures due to traumatizing experience with injections. Continue physical therapy, daily physical activity as tolerated, weight loss, adequate hydration, and aqua therapy. All questions were answered and the patient is in agreement of plan. Follow-up as needed. Coding Level of Care Code Est Pt Level 3 (89976) Diagnoses Osteoarthritis of right knee M17.11 Right knee pain M25.561 Morbid obesity E66.01 Fibromyalgia M79.7
[2024-05-23 09:42] VITALS: BP 144/70; PULSE 62; O2SAT 98; BMI 42.0
== END 2024-05-23 10:15 | disposition home or self-care (01) ==
PROVIDERS: PCP Internal Medicine; Visit Provider Nurse Practitioner Family
DX: M17.11 Unilateral primary osteoarthritis, right knee (principal); M25.561 Pain in right knee; E66.01 Morbid (severe) obesity due to excess calories; M79.7 Fibromyalgia
CPT/HCPCS: 99213

== ENCOUNTER → 2024-05-23 09:34 | Outpatient (BNVA) | payer MEDICARE, SELFPAY | PROVIDERS: PCP Internal Medicine; Visit Provider Nurse Practitioner Family | DX: M17.11 Unilateral primary osteoarthritis, right knee (principal); M25.561 Pain in right knee; M79.7 Fibromyalgia; E66.01 Morbid (severe) obesity due to excess calories; Z68.41 Body mass index [BMI] 40.0-44.9, adult | CPT/HCPCS: 99212 ==

== ENCOUNTER 2024-06-02 07:38 | Outpatient (REF) | payer MEDICARE, SELFPAY ==
[2024-06-02 07:54] LABS: MANUAL DIFF FLAG NO
[2024-06-02 08:22] LABS: Estimated Average Glucose 120 mg/dL; Hemoglobin A1c % 5.8 % (<6.0)
[2024-06-02 08:24] LABS: Basophils Absolute Auto 0.1 X10*3/uL (0.0-0.2); Basophils Percent Auto 1.4 % (0-2); Eosinophils Absolute Auto 0.2 X10*3/uL (0.0-0.4); Eosinophils Percent Auto 3.4 % (0-4); Hematocrit 41.7 % (37.0-47.0); Hemoglobin 13.8 g/dl (12.0-16.0); Imm Gran Abs Auto 0.04 X10*3/uL (0.00-0.03); Imm Gran Pct Auto 0.7 % (0.0-0.4); Lymphocytes Absolute Auto 1.8 X10*3/uL (1.2-4.9); Lymphocytes Percent Auto 30.2 % (20-40); Mean Corpuscular HGB Conc 33.1 g/dl (31.0-35.0); Mean Corpuscular Hemoglobin 28.7 pg (27.0-33.0); Mean Corpuscular Volume 86.7 fL (80.0-98.0); Mean Platelet Volume 10.3 fL (9.4-12.3); Monocytes Absolute Auto 0.4 X10*3/uL (0.1-1.2); Monocytes Percent Auto 6.6 % (2-11); Neutrophils Absolute Auto 3.4 x10*3/uL (2.0-8.3); Neutrophils Percent Auto 57.7 % (45-73); Platelet Count 249 X10*3/uL (160-400); Red Blood Count 4.81 X10*6/uL (4.20-5.50); Red Cell Distribution Width 13.6 % (11.0-16.0); White Blood Count 5.9 X10*3/uL (4.8-10.8)
[2024-06-02 08:50] LABS: Creatinine Urine 198.38 mg/dL
[2024-06-02 08:51] LABS: Alanine Aminotransferase 14 U/L (0-31); Albumin Level 4.1 g/dL (3.5-5.0); Alkaline Phosphatase 89 U/L (39-117); Anion Gap 11 (12-20); Aspartate Amino Transferase 15 U/L (5-31); Blood Urea Nitrogen 17 mg/dL (9-16); Calcium 10.5 mg/dL (8.4-10.2); Carbon Dioxide 27 mmol/L (22-29); Chloride 106 mmol/L (96-108); Cholesterol 192 mg/dL (<200); Estimated Glomerular Filt Rate > 60; Glucose Fasting 117 mg/dL (60-99); HDL Cholesterol 62 mg/dL (>40); LDL Cholesterol Calculated 95 mg/dL (<100); Potassium 4.3 mmol/L (3.3-5.1); Sodium 140 mmol/L (135-145); Total Protein 7.3 g/dL (6.5-8.0); Triglycerides 177 mg/dL (<150)
[2024-06-02 09:09] LABS: TSH reflex Free T4 1.35 uIU/mL (0.32-4.0); Vitamin D 25-OH Total 28.7 ng/mL (>30)
[2024-06-02 09:14] LABS: Folate 9.1 ng/mL (> or = 4.0); Vitamin B12 342 pg/mL (200-900)
== END 2024-06-02 07:39 | disposition home or self-care (01) ==
LOC: HO.LAB 07:38
PROVIDERS: PCP Internal Medicine; Visit Provider Internal Medicine
DX: Z00.00 Encounter for general adult medical examination without abnormal findings (principal); I10 Essential (primary) hypertension; E55.9 Vitamin D deficiency, unspecified; R73.9 Hyperglycemia, unspecified
CPT/HCPCS: 36415; 80053; 80061; 82043; 82306; 82570; 82607; 82746; 83036; 84443; 85025

== ENCOUNTER 2024-06-09 11:00 | Outpatient (RCR) | payer MEDICARE, SELFPAY ==
--- NOTE | 2024-05-06 16:13 | MHC.PT.EP ---
[facility] [place] Office [place] Office [place] Office [address] [phone] F: [phone] F: [phone] F: [phone] F: [phone] Physical Therapy Plan of Care Date of Evaluation: 05/06/24 Date of Surgery: Diagnosis: RIGHT knee OA (MD Dx) Per MRI: small tear post horn of the med meniscus. Mild partial tear post root med meniscus. Assessment: Patient is a pleasant 68 y.o. female who is referred to PT by CRISTIAN Aguilar, with Dx of RIGHT knee OA. Per MRI RIGHT knee the impression reads, Small undersurface tear posterior horn of the medial meniscus. Mild partial tear posterior root medial meniscus present. Patient impairments include pain, antalgic gait with compensations, limited ROM, weakness of R knee and hip. Patient current functional limitations are descending stairs, ascending stairs, walking, low chair/seat, laundry. Patient will benefit from skilled PT to address aforementioned impairments and functional limitations to meet established goals. Frequency and Duration: The patient will be seen 2x/week for 4 weeks Short Term Goals: 2 weeks Patient demonstrates consistency and independence with HEP to self manage symptoms. Vaccine Customer Representative Goals: 4 weeks Patient presents with increased RIGHT knee flexion 120 degrees to improve sit to stand from lower chair/surface. Patient presents with increased RIGHT knee quad strength 4+/5 to be able to ascend reciprocal stairs with railing. Treatment Plan: Modalities to reduce pain, spasms and effusion. Manual therapy to restore motion and function. Therapeutic exercise to improve strength and flexibility. Neuromuscular re-education for posture and balance. Therapeutic activities to return to functional activities of daily living. Electronically signed by: Jono Méndez, PT, DPT Please sign and return to therapist. Thank you for your referral.
--- NOTE | 2024-07-27 11:41 | MHC.PT.DC ---
[facility] [place] Office [place] Office [place] Office [address] Donte Donovan [address] [phone] F: [phone] F: [phone] F: [phone] F: [phone] Physical Therapy Discharge Report Diagnosis: RIGHT knee OA (MD Rajput) Per MRI: small tear post horn of the med meniscus. Mild partial tear post root med meniscus. Date of Surgery: Date of Evaluation: 05/06/24 Date of Discharge: 07/27/24 Treatments to Date: 7 Cancellations to Date: No Shows to Date: Discharge Status: Improved Function Independent with HEP Patient Elected to Stop Discharge Summary: Nahomy was last seen in PT on 06/06/24, the assessment reads, pt continues to demo increased quad strength. Pt was able to perform SLR today. Pt to have 1 more appt for HEP. Nahomy plans to continue ex at home and will have a TKA in future. She did not attend her last PT session, but is discharged and does have an independent HEP to self manage chronic condition. Electronically signed by: Jono Méndez, PT, DPT Please sign and return to therapist. Thank you for your referral.
== END 2024-07-27 11:41 | disposition home or self-care (01) ==
LOC: HO.PT 11:00
PROVIDERS: PCP Internal Medicine; Visit Provider Nurse Practitioner Family
DX: M17.11 Unilateral primary osteoarthritis, right knee (principal); M25.561 Pain in right knee
CPT/HCPCS: 97110; 97161; 97530

== ENCOUNTER 2024-06-10 12:54 | Outpatient (AMB) | payer MEDICARE, SELFPAY ==
[2024-06-10 13:03] VITALS: BP 120/68; PULSE 71; O2SAT 96; BMI 41.4
--- NOTE | 2024-06-10 13:03 | A.OFFPC_ITS ---
Vital Signs 06/10/24 13:03 Height 5 ft 4 in Weight 241 lb BMI 41.4 BP 120/68 Blood Pressure Location Lt brachial Position Sitting Pulse 71 Pulse Source Pulse Oximeter Pulse Oximetry (%) 96 Oxygen Delivery Method Room Air Intake Visit Reasons: 6 month Intake Note: Pt is here today for 6 months follow up visit. Allergies aspirin [ASPIRIN] Adverse Reaction (Unknown, Verified 06/10/24 13:04) STOMACH SENSITIVITY ibuprofen [IBUPROFEN] Adverse Reaction (Unknown, Verified 06/10/24 13:04) STOMACH SENSITIVITY Medication List - Last Reconciled 06/10/24 by Jacqueline Archer MD celecoxib 200 mg PO DAILY CPAP As directed cyanocobalamin (vitamin B-12) 250 mcg PO DAILY 90 days gabapentin 300 mg PO BEDTIME lidocaine 5% leave on most painful area for up to 12 hrs topical magnesium glycinate-mag oxide 120 mg PO DAILY melatonin 1 mg PO BEDTIME PRN olmesartan 10 mg (1/2 x 20 mg) PO DAILY Tobacco use date assessed: 06/10/24 Fall risk assessment: No Falls in past year Last assessed Fall Risk: 06/10/24 Dental Screening Dental Screen Date: 12/07/23 HPI 6 month HPI Details Patient presents for the follow-up on hypertension, controlled on current medications. She complains of general body and joint aches, waking up frequently during night because of the pain. She has been taking Tylenol arthritis with some relief. Patient's wass been diagnosed with Parkinson's disease and patient has been under lot of stress but denies depression or suicidal ideation. [facility] Medical History Bleeding hemorrhoids Osteoarthritis cervical spine Fibromyalgia Surgical History History of left knee replacement H/O colonoscopy History of carpal tunnel surgery S/P cholecystectomy H/O: hysterectomy Family History Father Colorectal cancer Paternal Grandmother Diabetes Mother Hypertension Lung cancer Social History Household Members Other:: , works from home, no exercise Housing: House Alcohol intake: never Patient Tobacco Use Status: Former Tobacco user Tobacco use type: Cigarette e-Cigarette/Vaping Use: Never Used service: No Current occupational status: employed 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 1. Little interest or pleasure in doing things: more than half the days 2. Feeling down, depressed, or hopeless: more than half the days 3. Trouble falling or staying asleep, or sleeping too much: nearly every day 4. Feeling tired or having little energy: nearly every day 5. Poor appetite or overeating: nearly every day 6. Feeling bad about yourself - or that you are a failure or have let yourself or your family down: nearly every day 7. Trouble concentrating on things, such as reading the newspaper or watching television: not at all 8. Moving or speaking so slowly that other people could have noticed. Or the opposite - being so fidgety or restless that you have been moving around a lot more than usual: not at all 9. Thoughts that you would be better off or of hurting yourself in some way: not at all Total score: 16 Depression Screening Interpretation: Positive (Patient will established care with a therapist. She declined medications) Depression Screening Follow-up: Existing condition Depression Screening Done: Yes 43926 - PHQ-9 Billing: Yes Source: Developed by Drs. Jan Araya, Angela Quijano, Maciel Rothman and colleagues, with an educational amy from [employer]. Thrive Questionnaire Date Thrive assessed: 06/10/24 I am a: Patient What is your living situation today?: I have a steady place to live Within the past 12 months, did the food you bought not last and you didn't have the money to get more?: Never true Within the past 12 months, did you worry whether your food would run out before you got money to buy more?: Never true Do you have trouble paying for medicines?: No Do you have trouble getting transportation to medical appointments?: No Do you have trouble paying your heating and electricity bill?: No Do you have trouble taking care of your child, family member or friend?: No Do you have trouble with day-to-day activities such as bathing, preparing meals, shopping, managing finances, etc.?: No Are you currently unemployed and looking for a job?: No Are you interested in more education?: No Please select the resources that you would like help with: Housing/Longterm Currently or been in a relationship where the following occur: No concerns reported THRIVE Score: 0 AUDIT C Alcohol Use Questionnaire (AUDIT-C) 1. How often do you have a drink containing alcohol?: Never Total Score: 0 PEGGY-7 AMB Questionnaire PEGGY-7 Date PEGGY - 7 assessed: 06/10/24 Feeling nervous, anxious, or on edge: 1 = Several days Not being able to stop or control worryin = Nearly every day Worrying too much about different things: 3 = Nearly every day Trouble relaxin = Not at all Being so restless that it is hard to sit still: 0 = Not at all Becoming easily annoyed or irritable: 1 = Several days Feeling afraid as if something awful might happen: 1 = Several days Total PEGGY-7 score (0-4 normal; 5-9 mild; 10-14 moderate; 15-21 severe): 9 Source: Developed by Drs. Jan Araya, Angela Quijano, Maciel Rothman and colleagues, with an educational amy from [employer]. PEGGY-7 Assessment Billing PEGGY-7 Assessment Tool: PEGGY-7 Assessment 90209 Physical exam (Primary Care) Vital Signs: Last Vital Signs Pulse 71 06/10/24 13:03 BP 120/68 06/10/24 13:03 Pulse Ox 96 06/10/24 13:03 Oxygen Delivery Method Room Air 06/10/24 13:03 BMI result Body Mass Index 41.4 Tobacco/Smoking Status: Tobacco use Status Tobacco use date assessed 06/10/24 06/10/24 13:05 Patient Tobacco Use Status Former Tobacco user 06/10/24 13:05 Tobacco use type Cigarette 06/10/24 13:05 e-Cigarette/Vaping Use Never Used 06/10/24 13:05 PHQ-9: PHQ-9 Score PHQ-9: Total score 16 06/10/24 13:07 Depression Screening Interpretation: Positive (Patient will established care with a therapist. She declined medications) Depression Screening Follow-up: Existing condition Thrive Assessment: Date of Thrive Assessment Date Thrive assessed 06/10/24 06/10/24 13:07 Currently or been in a relationship where the following occur: No concerns reported Const General: no acute distress HENMT Head: Yes normal to inspection Eyes General: appearance normal, both eyes and all related structures Neck Neck: Yes supple Resp Effort & Inspection: normal respiratory effort Auscultation: clear to auscultation bilaterally Cardio Rhythm: regular rhythm Heart sounds: S1 normal heart sound present and S2 normal heart sound present GI Inspection: Yes normal to inspection Palpation (GI): Soft to palpation Assessment and Plan Assessment & Plan (1) Osteoarthritis of knees, bilateral: Code(s): M17.0 - Bilateral primary osteoarthritis of knee Plan: Follow-up with orthopedics and pain management (2) Hyperglycemia: Code(s): R73.9 - Hyperglycemia, unspecified Plan: Continue ADA diet increase physical activity weight loss discussed with the patient. (3) HTN (hypertension): Code(s): I10 - Essential (primary) hypertension Plan: Continue olmesartan (4) Morbid obesity: Code(s): E66.01 - Morbid (severe) obesity due to excess calories Plan: Weight loss discussed with the patient (5) Fibromyalgia: Code(s): M79.7 - Fibromyalgia Plan: Tried gabapentin 300 mg q.h.s.. Follow-up with pain management. Patient will return in 6 months for physical with a fasting labs before Orders: Orders Comprehensive [place]. Panel Fast 6 Months I10 - Essential (primary) hypertension, M17.0 - Bilateral primary osteoarthritis of knee, R73.9 - Hyperglycemia, unspecified Complete Blood Count Auto Diff 6 Months I10 - Essential (primary) hypertension, M17.0 - Bilateral primary osteoarthritis of knee, R73.9 - Hyperglycemia, unspecified Microalbumin, Random (w Creat) 6 Months I10 - Essential (primary) hypertension, M17.0 - Bilateral primary osteoarthritis of knee, R73.9 - Hyperglycemia, unspecified Hemoglobin A1c 6 Months I10 - Essential (primary) hypertension, M17.0 - Bilateral primary osteoarthritis of knee, R73.9 - Hyperglycemia, unspecified Lipid Panel 6 Months I10 - Essential (primary) hypertension, M17.0 - Bilateral primary osteoarthritis of knee, R73.9 - Hyperglycemia, unspecified Medications: New gabapentin 300 mg PO BEDTIME 30 caps 1RF Coding Level of Care Code Est Pt Level 4 (12529) Diagnoses Osteoarthritis of knees, bilateral M17.0 Hyperglycemia R73.9 HTN (hypertension) I10 Morbid obesity E66.01 Fibromyalgia M79.7 Additional Codes PEGGY-7 Assessment Billing - PGEGY-7 Assessment Tool: PEGGY-7 Assessment 44455 ([id number])
== END 2024-06-10 15:23 | disposition home or self-care (01) ==
PROVIDERS: PCP Internal Medicine; Visit Provider Internal Medicine
DX: M17.0 Bilateral primary osteoarthritis of knee (principal); E66.01 Morbid (severe) obesity due to excess calories; Z68.41 Body mass index [BMI] 40.0-44.9, adult; R73.9 Hyperglycemia, unspecified; I10 Essential (primary) hypertension; M79.7 Fibromyalgia
CPT/HCPCS: 99214

== ENCOUNTER 2024-06-22 11:09 | Outpatient (REF) | payer MEDICARE, SELFPAY ==
--- NOTE | ~2024-06-22 | MM_ITS ---
EXAMINATION: MM SCREENING DIGITAL BREAST TOMOSYNTHESIS, BILATERAL CLINICAL INFORMATION: Screening. Asymptomatic. COMPARISON: Mammography: This study is compared with prior exams dating back to 2021. TECHNIQUE: Digital breast tomosynthesis is performed in both the craniocaudal and mediolateral oblique views along with computer-aided detection (CAD). Synthesized 2D images are generated from the tomosynthesis. FINDINGS: The breasts are almost entirely fatty (ACR BI-RADS breast composition Category a). There are no significant masses, abnormal calcifications, or other abnormalities. MM/MM tomosynthesis screening BI IMPRESSION: No mammographic evidence of malignancy. ASSESSMENT: BI-RADS BI-RADS 1 - Negative RECOMMENDATION: Routine annual mammography screening. 1 year F/U This examination should not preclude the clinical evaluation of a suspicious palpable abnormality. This patient's information was entered into a reminder system with a target due date for their next mammogram. Electronically signed by: Francoise Bowen MD 07/20/2024 02:23 PM EDT
== END 2024-06-22 11:10 | disposition home or self-care (01) ==
LOC: HO.MAMMO 11:09
PROVIDERS: PCP Internal Medicine; Visit Provider Internal Medicine
DX: Z12.31 Encounter for screening mammogram for malignant neoplasm of breast (principal)
CPT/HCPCS: 77063; 77067

== ENCOUNTER → 2024-06-22 11:30 | Outpatient (BNV) | payer MEDICARE, SELFPAY | PROVIDERS: PCP Internal Medicine; Visit Provider Radiology Diagnostic Radiology | DX: Z12.31 Encounter for screening mammogram for malignant neoplasm of breast (principal) | CPT/HCPCS: 77063; 77067 ==

== ENCOUNTER 2024-12-07 10:43 | Outpatient (REF) | payer MEDICARE, SELFPAY ==
[2024-12-07 10:59] LABS: MANUAL DIFF FLAG NO
[2024-12-07 11:15] LABS: Basophils Absolute Auto 0.1 X10*3/uL (0.0-0.2); Basophils Percent Auto 1.5 % (0-2); Eosinophils Absolute Auto 0.2 X10*3/uL (0.0-0.4); Eosinophils Percent Auto 3.5 % (0-4); Hematocrit 39.9 % (37.0-47.0); Hemoglobin 13.2 g/dl (12.0-16.0); Imm Gran Abs Auto 0.01 X10*3/uL (0.00-0.03); Imm Gran Pct Auto 0.2 % (0.0-0.4); Lymphocytes Absolute Auto 1.3 X10*3/uL (1.2-4.9); Lymphocytes Percent Auto 28.2 % (20-40); Mean Corpuscular HGB Conc 33.1 g/dl (31.0-35.0); Mean Corpuscular Hemoglobin 29.1 pg (27.0-33.0); Mean Corpuscular Volume 87.9 fL (80.0-98.0); Mean Platelet Volume 10.2 fL (9.4-12.3); Monocytes Absolute Auto 0.3 X10*3/uL (0.1-1.2); Neutrophils Absolute Auto 2.7 x10*3/uL (2.0-8.3); Neutrophils Percent Auto 59.6 % (45-73); Platelet Count 234 X10*3/uL (160-400); Red Blood Count 4.54 X10*6/uL (4.20-5.50); Red Cell Distribution Width 13.2 % (11.0-16.0); White Blood Count 4.5 X10*3/uL (4.8-10.8)
[2024-12-07 11:27] LABS: Estimated Average Glucose 123 mg/dL; Hemoglobin A1C 140.3331 umol/L; Hemoglobin A1c % 5.9 % (<6.0); Total Hemoglobin (HGBA1C) 3460.8255 umol/L
[2024-12-07 11:40] LABS: Alanine Aminotransferase 22 U/L (0-31); Albumin Level 4.1 g/dL (3.5-5.0); Alkaline Phosphatase 89 U/L (39-117); Anion Gap 10 (12-20); Aspartate Amino Transferase 21 U/L (5-31); Blood Urea Nitrogen 16 mg/dL (9-16); Calcium 9.3 mg/dL (8.4-10.2); Carbon Dioxide 26 mmol/L (22-29); Chloride 108 mmol/L (96-108); Cholesterol 137 mg/dL (<200); Estimated Glomerular Filt Rate > 60; Glucose Fasting 101 mg/dL (60-99); HDL Cholesterol 59 mg/dL (>40); LDL Cholesterol Calculated 53 mg/dL (<100); Potassium 4.6 mmol/L (3.3-5.1); Sodium 139 mmol/L (135-145); Total Protein 7.5 g/dL (6.5-8.0); Triglycerides 125 mg/dL (<150)
[2024-12-07 11:48] LABS: Creatinine Urine 194.35 mg/dL; Microalbum/Creatinine Ratio Ur 8.7 ug/mg cr (<30)
== END 2024-12-07 10:44 | disposition home or self-care (01) ==
LOC: HO.LAB 10:43
PROVIDERS: PCP Internal Medicine; Visit Provider Internal Medicine
DX: I10 Essential (primary) hypertension (principal); R73.9 Hyperglycemia, unspecified; M17.0 Bilateral primary osteoarthritis of knee
CPT/HCPCS: 36415; 80053; 80061; 82043; 82570; 83036; 85025

== ENCOUNTER 2024-12-12 11:14 | Outpatient (AMB) | payer MEDICARE, SELFPAY ==
--- NOTE | 2024-12-12 11:18 | MHC.OFFVIS ---
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 The CPAP compliance and therapy response (09/10/24-12/07/23) reviewed with the patient. She is on CPAP at [id number]. The usage days 100 % and average usage hours 8 hours. The residual AHI was 0.3/hr She has been having some SOB while lying in bed with labored breathing, her BP are well managed. She goes to bed at 10:30 pm and gets up at 7am, no bathroom breaks. She can't stay asleep, due to 's illness with Parkinsons. 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 She started Gabapentin 300mg 6 months ago due to burning pain in hands and feet bilaterally. She denies RLS, she c/o her feet have a burning sensation and weakness bilaterally from ankles down and this pain waxes and wanes a couple of times per week. She wakes up refreshed with more energy now that she is on CPAP, and her fibromyalgia pain has also improved. She still notices her hands get stiff and she continues to have bilateral difficulty with fine motor function. She uses nasal cushion and the fit Air30I mask, mouth still dropping open and the straps were very uncomfortable. She has tried mouth tape and her mouth was still open, so now she started using a cervical collar with soft foam and it pushes her jaw close. Her memory and has improved at baseline since starting the CPAP therapy. 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 She cleans the mask and tubing, changes out her filters, cleans the tubing and fills the reservoir with water as needed. [facility] Medical History Bleeding hemorrhoids Osteoarthritis cervical spine Fibromyalgia Surgical History History of left knee replacement H/O colonoscopy History of carpal tunnel surgery S/P cholecystectomy H/O: hysterectomy Family History Father Colorectal cancer Paternal Grandmother Diabetes Mother Hypertension Lung cancer Social History Household Members Other:: , works from home, no exercise Housing: House Alcohol intake: never Patient Tobacco Use Status: Former Tobacco user Tobacco use type: Cigarette e-Cigarette/Vaping Use: Never Used service: No Current occupational status: employed 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 Cognitive needs: No Hearing needs: No Vision needs: Yes Review of Systems Const All systems reviewed & are unremarkable except as noted in HPI and below Physical Exam Vital Signs: Last Vital Signs Pulse 80 12/12/24 11:19 BP 116/66 12/12/24 11:19 Pulse Ox 98 12/12/24 11:19 Oxygen Delivery Method Room Air 12/12/24 11:19 BMI result Body Mass Index 44.3 Const General: cooperative, comfortable and no acute distress Nutritional Appearance: obese (BMI is 44.4) centrally obese Orientation/consciousness: patient oriented x3 HEENT Face and sinus: Yes normal facial exam and Yes face symmetric Throat: Yes other ([place] score of 4) Eyes Pupils: Equal, round and reactive pupils present Neck Other: Pain on rotation of neck and limited ROM to L >R. Resp Effort & Inspection: normal respiratory effort and able to speak in complete sentences Neuro General: patient oriented x3 Cranial nerves: Yes CN's II-XII intact bilaterally, Yes Facial sensation intact/muscles of mastication intact, Yes Equal, round and reactive pupils present, Yes Normal accommodation reflex present, Yes Bilaterally intact EOM present, Yes Nystagmus not present, Yes Normal facial strength present, Yes Midline tongue present, Yes Ability to bilaterally rotate head present (Limited ROM ) and Yes Ability to bilaterally elevate shoulders present Motor exam (neuro): no tremor noted, Abnormal motor strength present (3/5 LE weaker > UE) and Abnormal muscle tone present (unable to dorsiflex R>L) Deep tendon reflexes (DTR's): Right triceps reflex intensity grade: 2+, Left triceps reflex intensity grade: 2+, Rt Biceps (C5, C6): 2+, Left biceps reflex intensity grade: 2+, Right brachioradialis reflex intensity grade: 2+, Left brachioradialis reflex intensity grade: 2+, Right patellar reflex intensity grade: 2+ and Left patellar reflex intensity grade: 2+ Psych Thought process: Normal thought process present Thought content: Normal thought content present Results Reviewed Results Reviewed: April 2024 NCS IMPRESSION: 1. This is a normal study. 2. 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 3. There is no electrodiagnostic evidence for median neuropathy, brachial plexopathy, or cervical radiculopathy. Dec 08, 2024 Labs Reviewed : Low Vitamin D levels Assessment & Plan Assessment & Plan (1) Joint pain: Code(s): M25.50 - Pain in unspecified joint Category: Medical Qualifiers: Joint pain location: hip Laterality: bilateral Qualified Code(s): M25.551 - Pain in right hip; M25.552 - Pain in left hip (2) DEZ (obstructive sleep apnea): Comment: Severe degree of sleep apnea. The AHI was 37/hr and oxygen jeffy was 78%. on Cpap Code(s): G47.33 - Obstructive sleep apnea (adult) (pediatric) Category: Medical (3) HTN (hypertension): Code(s): I10 - Essential (primary) hypertension Category: Medical Qualifiers: Hypertension type: primary hypertension Qualified Code(s): I10 - Essential (primary) hypertension (4) Fibromyalgia: Code(s): M79.7 - Fibromyalgia Category: Medical (5) Low vitamin D level: Code(s): R79.89 - Other specified abnormal findings of blood chemistry Category: Medical Plan Sleep Apnea Continue on CPAP as patient continues to have improved sleep. Bilateral ankle/ wrist/ shoulder/ hip Joint Pain Rheumatology Referral Sero Negative Spondylo-arthropathies? Low Vitamin D start Vitamin D 50mcg (2000) PO daily by mouth. Orders: Referrals Rheumatology Referral M25.50 - Pain in unspecified joint Medications: New cholecalciferol (vitamin D3) 50 mcg PO DAILY 30 caps 3RF Low Vitamin D Level MDD 50mcg R79.89 - Other specified abnormal findings of blood chemistry Patient Instructions: Continue using CPAP as patient has HTN, and her sleep has improved with CPAP, the number one modifiable risk factor for CV events is HTN. Weight Management declined today, as she has a lot of joint pain, and will look into swimming after Rheumatology visit. Monitor Blood sugars. Mood take Vitamin D daily. Sleep in a dark room, no devices in bed, limit fluids 2 hours prior to bedtime, may read in bed and diffuse essential oils to help with anxiety. Coding Level of Care Code Est Pt Level 4 (65127) Complex EM visit Add On G2211 Diagnoses Pain of both hip joints M25.551; M25.552 Joint pain location: hip Laterality: bilateral DEZ (obstructive sleep apnea) G47.33 Primary hypertension I10 Hypertension type: primary hypertension Fibromyalgia M79.7 Low vitamin D level R79.89 Time Spent (min) 40 Comment Improved
[2024-12-12 11:19] VITALS: BP 116/66; PULSE 80; O2SAT 98; BMI 44.3
== END 2024-12-12 12:19 | disposition home or self-care (01) ==
PROVIDERS: PCP Internal Medicine; Visit Provider Physician Assistant Medical
DX: M25.551 Pain in right hip (principal); M25.552 Pain in left hip; G47.33 Obstructive sleep apnea (adult) (pediatric); I10 Essential (primary) hypertension; M79.7 Fibromyalgia; R79.89 Other specified abnormal findings of blood chemistry
CPT/HCPCS: 99214; G2211

== ENCOUNTER → 2024-12-12 11:14 | Outpatient (BNVA) | payer MEDICARE, SELFPAY | PROVIDERS: PCP Internal Medicine; Visit Provider Physician Assistant Medical | DX: G47.33 Obstructive sleep apnea (adult) (pediatric) (principal); M25.551 Pain in right hip; M25.552 Pain in left hip; M79.7 Fibromyalgia; I10 Essential (primary) hypertension; R79.89 Other specified abnormal findings of blood chemistry; Z99.89 Dependence on other enabling machines and devices | CPT/HCPCS: 99212 ==

== ENCOUNTER 2024-12-13 09:28 | Outpatient (AMB) | payer MEDICARE, SELFPAY ==
[2024-12-13 10:38] VITALS: BP 130/80; PULSE 73; RESP 20; TEMP 36.7; O2SAT 96; BMI 43.8
--- NOTE | 2024-12-13 10:38 | MHC.PC.OV ---
Vital Signs 12/13/24 10:38 Height 5 ft 4 in Weight 255 lb BMI 43.8 BP 130/80 Blood Pressure Location Lt brachial Position Sitting Respiration 20 Pulse 73 Pulse Source Pulse Oximeter Temp 98.0 F Temp Source Oral Pulse Oximetry (%) 96 Oxygen Delivery Method Room Air Intake Visit Reasons: 6m f/u [phone] Intake Note: Pt is here today for 6 months follow up visit. Allergies aspirin [ASPIRIN] Adverse Reaction (Unknown, Verified 12/13/24 11:02) STOMACH SENSITIVITY ibuprofen [IBUPROFEN] Adverse Reaction (Unknown, Verified 12/13/24 11:02) STOMACH SENSITIVITY Medication List - Last Reconciled 12/13/24 by Jacqueline Archer MD celecoxib 200 mg PO .weekly cholecalciferol (vitamin D3) mcg PO cholecalciferol (vitamin D3) 50 mcg PO DAILY MDD 50mcg CPAP As directed gabapentin 300 mg PO BEDTIME olmesartan 10 mg (1/2 x 20 mg) PO DAILY sertraline 50 mg PO DAILY Tobacco use date assessed: 12/13/24 Fall risk assessment: No Falls in past year Last assessed Fall Risk: 12/13/24 Dental Screening Dental Screen Date: 12/13/24 Did you have a dental visit in the last 12 months?: Yes Did you have a dental problem in the last 6 months where you did not have access to dental care?: No Was dental information given to patient?: Patient has dentist HPI 6m f/u [phone] HPI Details Pt presents for f/u HTN, stable on Olmesartan. LBP better on Gabapentin. Patient complains of feeling anxious and overwhelmed by taking care of her with Parkinson's disease. Patient reports diffuse body aches muscle tightness. She has been less physically active because her ankles do not feel stable. Patient reports pain on the dorsum of her both feet but denies joint swelling, erythema or warmth. Patient has been taking Celebrex with some relief. [facility] Medical History Bleeding hemorrhoids Osteoarthritis cervical spine Fibromyalgia Surgical History History of left knee replacement H/O colonoscopy History of carpal tunnel surgery S/P cholecystectomy H/O: hysterectomy Family History Father Colorectal cancer Paternal Grandmother Diabetes Mother Hypertension Lung cancer Social History Household Members Other:: , works from home, no exercise Housing: House Alcohol intake: never Patient Tobacco Use Status: Former Tobacco user Tobacco use type: Cigarette e-Cigarette/Vaping Use: Never Used service: No Current occupational status: employed 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 1. Little interest or pleasure in doing things: more than half the days 2. Feeling down, depressed, or hopeless: more than half the days 3. Trouble falling or staying asleep, or sleeping too much: more than half the days 4. Feeling tired or having little energy: more than half the days 5. Poor appetite or overeating: more than half the days 6. Feeling bad about yourself - or that you are a failure or have let yourself or your family down: more than half the days 7. Trouble concentrating on things, such as reading the newspaper or watching television: not at all 8. Moving or speaking so slowly that other people could have noticed. Or the opposite - being so fidgety or restless that you have been moving around a lot more than usual: not at all 9. Thoughts that you would be better off or of hurting yourself in some way: not at all Total score: 12 Depression Screening Interpretation: Positive (Referred to a counseling and start Zoloft) Depression Screening Follow-up: Existing condition, New Medication prescribed and Follow-up Visit Requested Depression Screening Done: Yes 16640 - PHQ-9 Billing: Yes Source: Developed by Drs. Jan Araya, Angela Quijano, Maciel Rothman and colleagues, with an educational amy from [employer]. Thrive Questionnaire Date Thrive assessed: 12/13/24 I am a: Patient What is your living situation today?: I have a steady place to live Within the past 12 months, did the food you bought not last and you didn't have the money to get more?: Never true Within the past 12 months, did you worry whether your food would run out before you got money to buy more?: Never true Do you have trouble paying for medicines?: Yes Do you have trouble getting transportation to medical appointments?: No Do you have trouble paying your heating and electricity bill?: No Do you have trouble taking care of your child, family member or friend?: Yes Do you have trouble with day-to-day activities such as bathing, preparing meals, shopping, managing finances, etc.?: Yes Are you currently unemployed and looking for a job?: No Are you interested in more education?: No Please select the resources that you would like help with: None Currently or been in a relationship where the following occur: No concerns reported THRIVE Score: 0 AUDIT C Alcohol Use Questionnaire (AUDIT-C) 1. How often do you have a drink containing alcohol?: Never 3. How often do you have six or more drinks on one occasion?: Never Total Score: 0 PEGGY-7 AMB Questionnaire PEGGY-7 Date PEGGY - 7 assessed: 12/13/24 Feeling nervous, anxious, or on edge: 2 = More than half the days Not being able to stop or control worryin = More than half the days Worrying too much about different things: 3 = Nearly every day Trouble relaxin = Several days Being so restless that it is hard to sit still: 0 = Not at all Becoming easily annoyed or irritable: 2 = More than half the days Feeling afraid as if something awful might happen: 3 = Nearly every day Total PEGGY-7 score (0-4 normal; 5-9 mild; 10-14 moderate; 15-21 severe): 13 Source: Developed by Drs. Jan Araya, Angela Quijano, Maciel Rothman and colleagues, with an educational amy from [employer]. PEGGY-7 Assessment Billing PEGGY-7 Assessment Tool: PEGGY-7 Assessment 32362 Review of Systems Const All systems reviewed & are unremarkable except as noted in HPI and below Eyes Reports no additional complaints ENT Reports no additional complaints Card Reports no additional complaints Resp Reports no additional complaints GI Reports no additional complaints Reports no additional complaints Physical exam (Primary Care) Vital Signs: Last Vital Signs Temp 98.0 F 12/13/24 10:38 Pulse 73 12/13/24 10:38 Resp 20 12/13/24 10:38 BP 130/80 12/13/24 10:38 Pulse Ox 96 12/13/24 10:38 Oxygen Delivery Method Room Air 12/13/24 10:38 BMI result Body Mass Index 43.8 Tobacco/Smoking Status: Tobacco use Status Tobacco use date assessed 12/13/24 12/13/24 11:06 Patient Tobacco Use Status Former Tobacco user 12/13/24 10:38 Tobacco use type Cigarette 12/13/24 10:38 e-Cigarette/Vaping Use Never Used 12/13/24 10:38 PHQ-9: PHQ-9 Score PHQ-9: Total score 12 12/13/24 11:06 Depression Screening Interpretation: Positive (Referred to a counseling and start Zoloft) Depression Screening Follow-up: Existing condition, New Medication prescribed and Follow-up Visit Requested Thrive Assessment: Date of Thrive Assessment Date Thrive assessed 12/13/24 12/13/24 11:06 Currently or been in a relationship where the following occur: No concerns reported Const General: no acute distress HENMT Mouth: Normal oral and palatal mucosa present Neck Neck: Yes supple Thyroid: diffusely enlarged Resp Effort & Inspection: normal respiratory effort Auscultation: clear to auscultation bilaterally Cardio Rhythm: regular rhythm Heart sounds: S1 normal heart sound present and S2 normal heart sound present GI Inspection: Yes normal to inspection Palpation (GI): Soft to palpation Percussion: Yes normal to percussion Auscultation: normal bowel sounds Extrem Other: Both ankles with a full range of motion and no soft tissue swelling erythema or warmth General: Yes no pedal edema Coding Level of Care Code Est Pt Level 4 (45058) Diagnoses Enlarged thyroid E04.9 Morbid obesity E66.01 Primary hypertension I10 Hypertension type: primary hypertension Depression, unspecified F32.A Fibromyalgia M79.7 Additional Codes PEGGY-7 Assessment Billing - PEGGY-7 Assessment Tool: PEGGY-7 Assessment 28809 ([id number]) PHQ-9 - 05743 - PHQ-9 Billing: Yes ([id number]) Assessment & Plan Assessment & Plan (1) Enlarged thyroid: Code(s): E04.9 - Nontoxic goiter, unspecified Category: Medical Plan: Obtain thyroid ultrasound for enlarged thyroid (2) Morbid obesity: Code(s): E66.01 - Morbid (severe) obesity due to excess calories Category: Medical Plan: Decreasing caloric intake increasing physical activity discussed with the patient. She will check with her insurance GLP 1 agonist coverage (3) HTN (hypertension): Code(s): I10 - Essential (primary) hypertension Category: Medical Qualifiers: Hypertension type: primary hypertension Qualified Code(s): I10 - Essential (primary) hypertension Plan: Continue olmesartan (4) Depression, unspecified: Code(s): F32.A - Depression, unspecified Category: Medical Plan: Referred for counseling, start Zoloft 25 for the 1st week then increase to 50 mg a day. Follow-up in 6 weeks (5) Fibromyalgia: Code(s): M79.7 - Fibromyalgia Category: Medical Plan: Continue gabapentin increasing physical activity discussed with the patient. She declined physical therapy for chronic lower back pain Orders: Orders US thyroid Today E04.9 - Nontoxic goiter, unspecified Medications: New sertraline 1/2 tabl qd for 1 week, then 1 tabl qd 50 mg PO DAILY 90 tabs 1RF sertraline 1/2 tabl qd for 1 week, then 1 tabl qd 50 mg PO DAILY 90 tabs 1RF
== END 2024-12-13 11:55 | disposition home or self-care (01) ==
PROVIDERS: PCP Internal Medicine; Visit Provider Internal Medicine
DX: E04.9 Nontoxic goiter, unspecified (principal); E66.01 Morbid (severe) obesity due to excess calories; Z68.41 Body mass index [BMI] 40.0-44.9, adult; I10 Essential (primary) hypertension; F32.A Depression, unspecified; M79.7 Fibromyalgia

== ENCOUNTER → 2024-12-13 09:28 | Outpatient (BNVA) | payer MEDICARE, SELFPAY | PROVIDERS: PCP Internal Medicine; Visit Provider Internal Medicine | DX: E04.9 Nontoxic goiter, unspecified (principal); E66.01 Morbid (severe) obesity due to excess calories; I10 Essential (primary) hypertension; F32.A Depression, unspecified; M79.7 Fibromyalgia | CPT/HCPCS: 96127; 99212 ==

== ENCOUNTER 2024-12-28 13:40 | Outpatient (REF) | payer MEDICARE, SELFPAY ==
--- NOTE | ~2024-12-28 | US_ITS ---
EXAMINATION: US THYROID HISTORY: E04.9 - Nontoxic goiter, unspecified TECHNIQUE: Real-time grayscale ultrasound imaging was performed and images were reviewed. COMPARISON: There are no prior studies for comparison. FINDINGS: SIZE: The right thyroid lobe measures 4.7 x 1.7 x 1.8 cm. The left thyroid lobe measures 4.4 x 1.5 x 1.2 cm. The isthmus measures 3 mm. FLOW: Flow to the gland is normal. ECHOGENICITY: The echotexture of the gland is homogeneous. NODULES: A single nodule is noted on the left as described below: Nodule #: 1 Location: Left lower pole measuring 7 x 5 x 6 mm Shape: Wider than tall (0 points) Margins: Ill-defined (0 points) Echotexture: Isoechoic (1 point) Composition: Mostly solid (2 points) Calcifications: Punctate calcifications (3 points) Total points: 6 TIRADS: TR4: Moderately suspicious. US/US thyroid IMPRESSION: Subcentimeter left thyroid nodule as described. ACR TI-RADS Guidelines TR1: Benign, No follow-up or biopsy required TR2: Not Suspicious, No biopsy indicated TR3: Mildly Suspicious, FNA if >= 2.5 cm, Follow if >= 1.5 cm TR4: Moderately Suspicious, FNA if >= 1.5 cm, Follow if >= 1.0 cm TR5: Highly Suspicious, FNA if >= 1.0 cm, Follow if >= 0.5 cm Electronically signed by: Jan Meng MD 12/28/2024 03:14 [facility]
== END 2024-12-28 13:41 | disposition home or self-care (01) ==
LOC: HO.US 13:40
PROVIDERS: PCP Internal Medicine; Visit Provider Internal Medicine
DX: E04.9 Nontoxic goiter, unspecified (principal)
CPT/HCPCS: 76536

== ENCOUNTER → 2024-12-28 13:41 | Outpatient (BNV) | payer MEDICARE, SELFPAY | PROVIDERS: PCP Internal Medicine; Visit Provider Radiology Diagnostic Radiology | DX: E04.1 Nontoxic single thyroid nodule (principal) | CPT/HCPCS: 76536 ==

== ENCOUNTER 2025-01-24 11:09 | Outpatient (AMB) | payer MEDICARE, SELFPAY ==
[2025-01-24 11:12] VITALS: BP 124/70; PULSE 77; RESP 18; TEMP 36.9; O2SAT 96; BMI 43.3
--- NOTE | 2025-01-24 11:12 | A.OFFPC_ITS ---
Vital Signs 01/24/25 11:12 Height 5 ft 4 in Weight 252 lb BMI 43.3 BP 124/70 Blood Pressure Location Lt brachial Position Sitting Respiration 18 Pulse 77 Pulse Source Pulse Oximeter Temp 98.4 F Temp Source Oral Pulse Oximetry (%) 96 Oxygen Delivery Method Room Air Intake Visit Reasons: 6w f/u [phone] Intake Note: Pt messi prescott today for 6 weeks follow up visit. Allergies aspirin [ASPIRIN] Adverse Reaction (Unknown, Verified 01/24/25 11:13) STOMACH SENSITIVITY ibuprofen [IBUPROFEN] Adverse Reaction (Unknown, Verified 01/24/25 11:13) STOMACH SENSITIVITY Medication List - Last Reconciled 01/24/25 by Jacqueline Archer MD celecoxib 200 mg PO .weekly cholecalciferol (vitamin D3) mcg PO cholecalciferol (vitamin D3) 50 mcg PO DAILY MDD 50mcg CPAP As directed gabapentin 600 mg (2 x 300 mg) PO BEDTIME olmesartan 10 mg (1/2 x 20 mg) PO DAILY sertraline 50 mg PO DAILY Tobacco use date assessed: 01/24/25 Fall risk assessment: No Falls in past year Last assessed Fall Risk: 01/24/25 Dental Screening Dental Screen Date: 12/13/24 HPI 6w f/u [phone] HPI Details Patient presents for the follow-up chronic anxiety depression better on sertraline. Patient is started counseling. She has been more physically active. Patient has a reports neck pain at night waking patient up. She has been taking gabapentin with some relief. Hypertension is controlled on olmesartan [facility] Medical History Bleeding hemorrhoids Osteoarthritis cervical spine Fibromyalgia Surgical History History of left knee replacement H/O colonoscopy History of carpal tunnel surgery S/P cholecystectomy H/O: hysterectomy Family History Father Colorectal cancer Paternal Grandmother Diabetes Mother Hypertension Lung cancer Social History Household Members Other:: , works from home, no exercise Housing: House Alcohol intake: never Patient Tobacco Use Status: Former Tobacco user Tobacco use type: Cigarette e-Cigarette/Vaping Use: Never Used service: No Current occupational status: employed 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 1. Little interest or pleasure in doing things: several days 2. Feeling down, depressed, or hopeless: several days 3. Trouble falling or staying asleep, or sleeping too much: nearly every day 4. Feeling tired or having little energy: several days 5. Poor appetite or overeating: several days 6. Feeling bad about yourself - or that you are a failure or have let yourself or your family down: several days 7. Trouble concentrating on things, such as reading the newspaper or watching television: not at all 8. Moving or speaking so slowly that other people could have noticed. Or the opposite - being so fidgety or restless that you have been moving around a lot more than usual: not at all 9. Thoughts that you would be better off or of hurting yourself in some w ay: not at all Total score: 8 Depression Screening Interpretation: Negative Depression Screening Done: Yes 93317 - PHQ-9 Billing: Yes Source: Developed by Drs. Jan Araya, Angela Quijano, Maciel Rothman and colleagues, with an educational amy from [employer]. Thrive Questionnaire Date Thrive assessed: 12/13/24 I am a: Patient What is your living situation today?: I have a steady place to live Within the past 12 months, did the food you bought not last and you didn't have the money to get more?: Never true Within the past 12 months, did you worry whether your food would run out before you got money to buy more?: Never true Do you have trouble paying for medicines?: Yes Do you have trouble getting transportation to medical appointments?: No Do you have trouble paying your heating and electricity bill?: No Do you have trouble taking care of your child, family member or friend?: Yes Do you have trouble with day-to-day activities such as bathing, preparing meals, shopping, managing finances, etc.?: Yes Are you currently unemployed and looking for a job?: No Are you interested in more education?: No Please select the resources that you would like help with: None Currently or been in a relationship where the following occur: No concerns reported THRIVE Score: 0 AUDIT C Alcohol Use Questionnaire (AUDIT-C) 2. How many drinks containing alcohol do you have on a typical day when you are drinking?: 1 or 2 3. How often do you have six or more drinks on one occasion?: Never Total Score: 0 PEGGY-7 AMB Questionnaire PEGGY-7 Date PEGGY - 7 assessed: 01/24/25 Feeling nervous, anxious, or on edge: 1 = Several days Not being able to stop or control worryin = Several days Worrying too much about different things: 1 = Several days Trouble relaxin = Not at all Being so restless that it is hard to sit still: 0 = Not at all Becoming easily annoyed or irritable: 1 = Several days Feeling afraid as if something awful might happen: 1 = Several days Total PEGGY-7 score (0-4 normal; 5-9 mild; 10-14 moderate; 15-21 severe): 5 Source: Developed by Drs. Jan Araya, Angela Quijano, Maciel Rothman and colleagues, with an educational amy from [employer]. PEGGY-7 Assessment Billing PEGGY-7 Assessment Tool: PEGGY-7 Assessment 98518 Review of Systems Const All systems reviewed & are unremarkable except as noted in HPI and below Eyes Reports no additional complaints ENT Reports no additional complaints Card Reports no additional complaints Resp Reports no additional complaints GI Reports no additional complaints Reports no additional complaints Physical exam (Primary Care) Vital Signs: Last Vital Signs Temp 98.4 F 01/24/25 11:12 Pulse 77 01/24/25 11:12 Resp 18 01/24/25 11:12 BP 124/70 01/24/25 11:12 Pulse Ox 96 01/24/25 11:12 Oxygen Delivery Method Room Air 01/24/25 11:12 BMI result Body Mass Index 43.3 Tobacco/Smoking Status: Tobacco use Status Tobacco use date assessed 01/24/25 01/24/25 11:21 Patient Tobacco Use Status Former Tobacco user 01/24/25 11:13 Tobacco use type Cigarette 01/24/25 11:13 e-Cigarette/Vaping Use Never Used 01/24/25 11:13 PHQ-9: PHQ-9 Score PHQ-9: Total score 8 01/24/25 11:28 Depression Screening Interpretation: Negative Thrive Assessment: Date of Thrive Assessment Date Thrive assessed 12/13/24 01/24/25 11:13 Currently or been in a relationship where the following occur: No concerns reported Const General: no acute distress HENMT Head: Yes normal to inspection Ears: TM's normal bilaterally Throat: Yes posterior oropharynx normal Neck Other: The slight fullness in the left submandibular gland compared to right side Neck: Yes supple Resp Effort & Inspection: normal respiratory effort Auscultation: clear to auscultation bilaterally Cardio Rhythm: regular rhythm Heart sounds: S1 normal heart sound present and S2 normal heart sound present Coding Level of Care Code Est Pt Level 4 (81951) Diagnoses Cervical lymphadenopathy R59.0 Hyperglycemia R73.9 Primary hypertension I10 Hypertension type: primary hypertension Depression, unspecified F32.A Additional Codes PEGGY-7 Assessment Billing - PEGGY-7 Assessment Tool: PEGGY-7 Assessment 20304 ([id number]) PHQ-9 - 91121 - PHQ-9 Billing: Yes ([id number]) Assessment & Plan Assessment & Plan (1) Cervical lymphadenopathy: Code(s): R59.0 - Localized enlarged lymph nodes Category: Medical Plan: Obtain neck ultrasound to evaluate (2) Hyperglycemia: Code(s): R73.9 - Hyperglycemia, unspecified Category: Medical Plan: Continue ADA diet increase exercise weight loss discussed with the patient. (3) HTN (hypertension): Code(s): I10 - Essential (primary) hypertension Category: Medical Qualifiers: Hypertension type: primary hypertension Qualified Code(s): I10 - Essential (primary) hypertension Plan: Continue current medications (4) Depression, unspecified: Code(s): F32.A - Depression, unspecified Category: Medical Plan: Continue sertraline and counseling Orders: Orders Complete Blood Count Auto Diff 5 Months E66.01 - Morbid (severe) obesity due to excess calories, I10 - Essential (primary) hypertension, R73.9 - Hyperglycemia, unspecified Hemoglobin A1c 5 Months E66.01 - Morbid (severe) obesity due to excess calories, I10 - Essential (primary) hypertension, R73.9 - Hyperglycemia, unspecified Microalbumin, Random (w Creat) 5 Months E66.01 - Morbid (severe) obesity due to excess calories, I10 - Essential (primary) hypertension, R73.9 - Hyperglycemia, unspecified US thyroid 6 Months E04.1 - Nontoxic single thyroid nodule US soft tiss head and/or neck Today R59.0 - Localized enlarged lymph nodes Lipid Panel 5 Months E66.01 - Morbid (severe) obesity due to excess calories, I10 - Essential (primary) hypertension, R73.9 - Hyperglycemia, unspecified Comprehensive [place]. Panel Fast 5 Months E66.01 - Morbid (severe) obesity due to excess calories, I10 - Essential (primary) hypertension, R73.9 - Hyperglycemia, unspecified TSH reflex Free T4 5 Months E66.01 - Morbid (severe) obesity due to excess calories, I10 - Essential (primary) hypertension, R73.9 - Hyperglycemia, unspecified Medications: New estradiol 0.01%(0.1mg/gram) (Estrace) 1 g vaginal 3XW 42.5 grams 5RF Changed From gabapentin 300 mg PO BEDTIME 90 caps 3RF To gabapentin 600 mg (2 x 300 mg) PO BEDTIME 180 caps 3RF
== END 2025-01-24 12:16 | disposition home or self-care (01) ==
LOC: HO.HMCC 11:10
PROVIDERS: PCP Internal Medicine; Visit Provider Internal Medicine
DX: R59.0 Localized enlarged lymph nodes (principal); R73.9 Hyperglycemia, unspecified; I10 Essential (primary) hypertension; F32.A Depression, unspecified

== ENCOUNTER → 2025-01-24 11:09 | Outpatient (BNVA) | payer MEDICARE, SELFPAY | PROVIDERS: PCP Internal Medicine; Visit Provider Internal Medicine | DX: E04.9 Nontoxic goiter, unspecified (principal); R59.0 Localized enlarged lymph nodes; R73.9 Hyperglycemia, unspecified; I10 Essential (primary) hypertension; F32.A Depression, unspecified | CPT/HCPCS: 96127; 99212 ==

== ENCOUNTER 2025-02-22 14:12 | Outpatient (REF) | payer MEDICARE, SELFPAY ==
--- NOTE | ~2025-02-22 | US_ITS ---
CLINICAL HISTORY: R59.0 - Localized enlarged lymph nodes --- Additional Notes or Special Instructions : left submandibular region US neck nonvascular Comparison: None Findings: Sonographic evaluation in the area of clinical concern left submandibular region demonstrates morphologically benign-appearing submandibular lymph node with no cortical thickening or cortical disruption. Central fatty hilum with central flow. This measures 1.3 x 0.7 x 1.1 cm. Impression: Morphologically benign-appearing probable reactive left submandibular lymph node. This document has been electronically signed by: Darnell Moon MD on 02/24/2025 08:46:14
== END 2025-02-22 14:13 | disposition home or self-care (01) ==
LOC: HO.US 14:12
PROVIDERS: PCP Internal Medicine; Visit Provider Internal Medicine
DX: R59.0 Localized enlarged lymph nodes (principal)
CPT/HCPCS: 76536

== ENCOUNTER → 2025-02-22 14:14 | Outpatient (BNV) | payer MEDICARE, SELFPAY | PROVIDERS: PCP Internal Medicine; Visit Provider Radiology Diagnostic Radiology | DX: R59.0 Localized enlarged lymph nodes (principal) | CPT/HCPCS: 76536 ==

== ENCOUNTER 2025-04-11 10:55 | Outpatient (REF) | payer MEDICARE, SELFPAY ==
--- NOTE | ~2025-04-11 | XR_ITS ---
Exam: 4 view bilateral hands. INDICATION: Joint pain, right greater than left, suspected inflammatory arthropathy Prior: Right hand April 06, 2024 TECHNIQUE: PA, oblique, [place], and lateral view, bilateral hand x-ray FINDINGS: RIGHT HAND: There is fqut-[id number] narrowing of the DIP joints with marginal osteophytes, most pronounced involving the second and fifth digits. PIP joints demonstrate very small marginal osteophytes involving the second and third digits. There is asymmetric narrowing and moderate osteophyte formation involving the IP joint of the thumb. Metacarpal phalangeal joints are preserved. There is very subtle focal osteopenia involving the radial aspect of the third and fourth proximal phalanges. The cortical white lines of the metacarpal heads are preserved. The MCP joint of thumb demonstrates small marginal osteophyte formation. There is sclerosis, moderate severe narrowing, and osteophytes involving the first CMC joint. There are marginal osteophytes involving pisiform and narrowing of the triquetral pisiform joint. There is a corticated bony fragment interposed between the proximal carpal row and ulnar styloid. Ulnar variance measures +2.4 mm Degenerative changes are increased since the prior. LEFT HAND: DIP joints demonstrate mild narrowing and small osteophytes. PIP joints of the second and third digits demonstrate minimal marginal osteophytes. IP joint of the thumb demonstrate a moderate osteophyte formation Metacarpal phalangeal joints are preserved. The cortical white line of the fourth metacarpal head is not clearly delineated at the far radial margin. MCP joint of the thumb demonstrates marginal osteophyte formation, small to medium sized. First CMC joint demonstrates moderate osteophyte formation and mild narrowing with sclerosis. Ulnar variance: +2 mm XR/XR Hand Bilat min 3v IMPRESSION: RIGHT HAND: Subtle osteopenia involving the radial base of the third and fourth proximal phalanges can be an early indicator of inflammatory arthropathy, specifically rheumatoid arthritis. The appearance is not definitive. There are tbss-wa-ndvnoodz changes consistent with osteoarthritis. LEFT HAND: There is subtle loss of the cortical white line of the fourth metacarpal head at the extreme radial margin, marginal erosion from inflammatory arthropathy is not ruled out. There are irhr-id-rxzbohzv changes consistent with osteoarthritis, less pronounced than on the right. Electronically signed by: Jason Hernández MD 04/12/2025 01:16 PM EDT
--- NOTE | ~2025-04-11 | XR_ITS ---
Exam: Three-view bilateral feet INDICATION: Joint pain, greater on the right TECHNIQUE: AP, lateral, oblique x-rays lower extremity, bilateral feet Prior: None FINDINGS: RIGHT FOOT: There is mild narrowing of the first MTP joint. There is osteopenia involving the medial segment-fifth metatarsal heads. The cortical white line is indistinct at the third and fourth metatarsals and borderline at the second and fifth metatarsal heads. There is a focal erosion involving the lateral margin of the fifth metatarsal head. Tarsometatarsal joints appear intact. There are no other areas concerning for erosion. Calcaneal spurs are noted. Dorsal midfoot marginal osteophytes are present. LEFT FOOT: Moderate to severe hallux valgus deformity is present with associated degenerative cystic change in the first metatarsal head. There is nonspecific osteopenia involving the medial segment of the fifth metatarsal heads. The cortical white line of the fourth and fifth metatarsal heads is indistinct. The third metatarsal head cortical outline is borderline. There is possible erosion at the lateral margin of the fifth metatarsal head. Tarsometatarsal joints are aligned. There is suspected marginal erosion involving the medial aspect of the medial cuneiform and possibly involving the base of the second, third, and fourth metatarsals at the articulation with the cuneiform joints. XR/XR Foot John 3V IMPRESSION: Marginal erosions are consistent with an inflammatory arthropathy, likely rheumatoid arthritis with active aggressive erosions. Electronically signed by: Jason Hernández MD 04/11/2025 06:48 PM EDT
[2025-04-11 18:02] LABS: MANUAL DIFF FLAG NO
[2025-04-11 18:20] LABS: Basophils Percent Auto 0.7 % (0-2); Eosinophils Absolute Auto 0.1 X10*3/uL (0.0-0.4); Eosinophils Percent Auto 1.6 % (0-4); Hematocrit 41.1 % (37.0-47.0); Hemoglobin 13.4 g/dl (12.0-16.0); Imm Gran Abs Auto 0.01 X10*3/uL (0.00-0.03); Imm Gran Pct Auto 0.2 % (0.0-0.4); Lymphocytes Absolute Auto 1.1 X10*3/uL (1.2-4.9); Lymphocytes Percent Auto 20.2 % (20-40); Mean Corpuscular HGB Conc 32.6 g/dl (31.0-35.0); Mean Corpuscular Hemoglobin 28.3 pg (27.0-33.0); Mean Corpuscular Volume 86.9 fL (80.0-98.0); Mean Platelet Volume 11.5 fL (9.4-12.3); Monocytes Absolute Auto 0.4 X10*3/uL (0.1-1.2); Monocytes Percent Auto 6.9 % (2-11); Neutrophils Absolute Auto 3.9 x10*3/uL (2.0-8.3); Neutrophils Percent Auto 70.4 % (45-73); Platelet Count 249 X10*3/uL (160-400); Red Blood Count 4.73 X10*6/uL (4.20-5.50); White Blood Count 5.5 X10*3/uL (4.8-10.8)
[2025-04-11 18:40] LABS: Aspartate Amino Transferase 24 U/L (5-31); C Reactive Protein 0.37 mg/dL (< or = 0.50); Estimated Glomerular Filt Rate > 60
[2025-04-11 18:47] LABS: TSH reflex Free T4 0.98 uIU/mL (0.32-4.0)
[2025-04-11 19:32] LABS: Erythrocyte Sedimentation Rate 25 MM/HR (0-20)
[2025-04-12 08:24] LABS: HBS Num1 0.09 mIU/mL (0-7.99); HBc Num1 0.08 S/CO (0.00-0.79); HBsAGNum1 0.32 S/CO (0.00-0.99); Hepatitis B Core Antibody Nonreactive (Nonreactive); Hepatitis B Surface Antigen Negative (Negative); ~HepC Num1 0.14 S/CO (0.00-0.79); ~Hepatitis B Surface Antibody NONREACTIVE (Nonreactive); ~Hepatitis C Antibody Nonreactive (Nonreactive)
[2025-04-13 03:24] LABS: Complement C3 176 mg/dL (83-193)
[2025-04-14 07:38] LABS: Anti Nuclear Antibody Screen NEGATIVE (NEGATIVE)
[2025-04-14 13:54] LABS: Cyclic Citrullinated Peptide <16 UNITS
== END 2025-04-11 10:56 | disposition home or self-care (01) ==
LOC: HO.HKASLDS 10:55
PROVIDERS: PCP Internal Medicine; Visit Provider Internal Medicine Rheumatology
DX: Z79.899 Other long term (current) drug therapy (principal); G62.9 Polyneuropathy, unspecified; M25.50 Pain in unspecified joint; M79.7 Fibromyalgia
CPT/HCPCS: 36415; 73130; 73630; 82565; 84443; 84450; 85025; 85652; 86038; 86140; 86160; 86200; 86704; 86706; 86803; 87340; 99202

== ENCOUNTER 2025-04-11 10:55 | Outpatient (AMB) | payer MEDICARE, SELFPAY ==
--- NOTE | 2025-04-11 11:08 | MHC.OFFVIS ---
Vital Signs 04/11/25 11:09 Height 5 ft 4 in Weight 252 lb BMI 43.3 BP 110/80 Blood Pressure Location Lt brachial Position Sitting Pulse 75 Pulse Source Pulse Oximeter Pulse Oximetry (%) 97 Oxygen Delivery Method Room Air Intake Visit Reasons: joint pain Intake Note: Patient is here to follow up on joint pain today. Allergies aspirin [ASPIRIN] Adverse Reaction (Unknown, Verified 01/24/25 11:13) STOMACH SENSITIVITY ibuprofen [IBUPROFEN] Adverse Reaction (Unknown, Verified 01/24/25 11:13) STOMACH SENSITIVITY HPI HPI joint pain: Details: New patient visit. Pain and stiffness in hands is all day and at night. Unable to move hands at nights, which wakes her up from sleep. In the last 6 months she had pain in bilateral 2-5th fingers. She has had chronic pain in bilateral CMC and reports there has been plan to have surgery on them. Hard time using hands like cutting, opening things, holding a plate, peeling potatoes. Hard to do her her own hair. She has most pain in hands and feet (top of foot). She has noticed swelling in hands and ankles. She does not use a cane. She would have intense pain after taking a step in her ankle preventing her from walking. Recently noticed left third tremors. She has been experiencing burning sensation in bilateral ankles to feet for over a year. History of prediabetes. Takes celebrex PRN joint pain. She was diagnosed with fibromyalgia in 2005. 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 SHe wanted to see if treatment for FMS would illeviate her pain. She was not started on DMARD therapy. Pmx: fibromyalgia dx 2006, osteoarthritis (bilateral CMCs, knees, spine), L TKR, HTN, DEZ, preDM, thyroid nodule with goiter Sister has seronegative RA and is suspected to have SLE. Paternal grandmother and aunt have RA. 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 Does not smoke or does not drink alcohol. [facility] Medical History Bleeding hemorrhoids Osteoarthritis cervical spine Fibromyalgia Surgical History History of left knee replacement H/O colonoscopy History of carpal tunnel surgery S/P cholecystectomy H/O: hysterectomy Family History Father Colorectal cancer Paternal Grandmother Diabetes Mother Hypertension Lung cancer Social History Household Members Other:: , works from home, no exercise Housing: House Alcohol intake: never Patient Tobacco Use Status: Former Tobacco user Tobacco use type: Cigarette e-Cigarette/Vaping Use: Never Used service: No Current occupational status: employed 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 Good respiratory effort Skin: No lesions seen MSK: Tender to palpate bilateral MCPs, PIPs, DIPJ, phalanxes, wrists, shoulders, knees, ankles, midfoot, MTPs, toes. Squaring of bilateral CMCs. [place] nodes present. She has soft tissue swelling right midfoot. No synovitis. Normal range of motion of upper extremities. Valgus valgus deformity of bilateral knees. Knee flexion 90 degrees. Limited full external rotation of hips. Bilateral trochanteric bursa tenderness palpated. Diffuse allodynia of extremities and back. Assessment & Plan Assessment & Plan (1) Multiple joint pain: Comment: Chronic polyarthralgias, joint stiffness lasting all day and night is limiting patient's function. She has underlying fibromyalgia that is not controlled contributing to her pain. I will start workup to rule out underlying subclinical inflammatory arthritis contributing to her pain. Code(s): M25.50 - Pain in unspecified joint Category: Medical Plan: Labs ordered X-rays bilateral hands and feet ordered PCP follow-up for fibromyalgia management. I recommend up titrating gabapentin. She is currently taking gabapentin 600 mg q.h.s.. Consider up titrating gabapentin as she tolerates it such as adding gabapentin 300 mg a.m. dose to eventually up titrating gabapentin to 600 mg t.i.d. combination therapy with gabapentin can be effective for managing pain from fibromyalgia with addition of duloxetine, Savella, and or muscle relaxer cyclobenzaprine. Information on fibromyalgia given to patient Return to clinic in 1-2 months (2) Peripheral neuropathy: Comment: She has history of prediabetes, which can cause lower extremity peripheral neuropathy in rare situations. I will rule out thyroid disease with TSH. Code(s): G62.9 - Polyneuropathy, unspecified Category: Medical Plan: Follow up with PCP in June. Consider bilateral lower extremity EMGs for further workup of peripheral neuropathy if TSH is normal (3) Fibromyalgia: Code(s): M79.7 - Fibromyalgia Category: Medical Plan: See above Orders: Orders [place] Reflex Titer and Pattern Today G62.9 - Polyneuropathy, unspecified, M25.50 - Pain in unspecified joint C Reactive Protein Today G62.9 - Polyneuropathy, unspecified, M25.50 - Pain in unspecified joint, Z79.899 - Other alf (current) drug therapy Complement C3 Today G62.9 - Polyneuropathy, unspecified, M25.50 - Pain in unspecified joint Creatinine Today G62.9 - Polyneuropathy, unspecified, M25.50 - Pain in unspecified joint Erythrocyte Sedimentation Rate Today G62.9 - Polyneuropathy, unspecified, M25.50 - Pain in unspecified joint, Z79.899 - Other dedicated 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) drug therapy XR foot RT min 3V Today M25.50 - Pain in unspecified joint Cyclic Citrullinated Peptide Today G62.9 - Polyneuropathy, unspecified, M25.50 - Pain in unspecified joint Aspartate Amino Transferase Today G62.9 - Polyneuropathy, unspecified, M25.50 - Pain in unspecified joint Complement C4 Today G62.9 - Polyneuropathy, unspecified, M25.50 - Pain in unspecified joint Complete Blood Count Auto Diff Today G62.9 - Polyneuropathy, unspecified, M25.50 - Pain in unspecified joint Hepatitis B,C Profile Today G62.9 - Polyneuropathy, unspecified, M25.50 - Pain in unspecified joint TSH reflex Free T4 Today G62.9 - Polyneuropathy, unspecified, M25.50 - Pain in unspecified joint XR hand LT min 3V Today M25.50 - Pain in unspecified joint XR foot LT min 3V Today M25.50 - Pain in unspecified joint XR hand RT min 3V Today M25.50 - Pain in unspecified joint Coding Level of Care Code New Pt Level 4 (01721) Diagnoses Multiple joint pain M25.50 Peripheral neuropathy G62.9 Fibromyalgia M79.7
[2025-04-11 11:09] VITALS: BP 110/80; PULSE 75; O2SAT 97; BMI 43.3
== END 2025-04-11 12:05 | disposition home or self-care (01) ==
LOC: HO.RHES 10:56
PROVIDERS: PCP Internal Medicine; Visit Provider Internal Medicine Rheumatology
DX: M25.50 Pain in unspecified joint (principal); G62.9 Polyneuropathy, unspecified; M79.7 Fibromyalgia
CPT/HCPCS: 99204

== ENCOUNTER → 2025-04-11 13:41 | Outpatient (BNV) | payer MEDICARE, SELFPAY | PROVIDERS: PCP Internal Medicine; Visit Provider Radiology Diagnostic Radiology | DX: M79.671 Pain in right foot (principal); M79.672 Pain in left foot | CPT/HCPCS: 73130; 73630 ==

== ENCOUNTER 2025-05-19 09:08 | Outpatient (REF) | payer MEDICARE, SELFPAY ==
--- NOTE | 2025-05-19 16:42 | PM.PROC ---
Brief Operative Note Date of procedure: 05/19/25 Pre-op diagnosis: Osteoarthritis Post-op diagnosis: same Procedure: Date: 05/19/25 Study Type: Complete US Indication: Hand pain Study Site: Right and Left 2nd digit Brief History: Complaining of pain and stiffness in her hands with concern for synovitis Relevant meds: ?Not currently on prednisone XR Images reviewed Findings: ?Orthogonal views of the dorsal, lateral and palmar views of bilateral 2nd digits were obtained in grayscale and Doppler. Joint: Decreased joint spaces, especially in the PIPs. No evidence of synovial hypertrophy involving the 2nd MCP in the palmar or dorsal aspect on the right or left. Negative Doppler Tendon: No tendon tears or peritendon fluid. Negative doppler Bones: Bones intact and no erosions noted. No overt osteophytes noted Impressions: Exam consistent with noninflammatory arthritis such as osteoarthritis Condition: stable
== END 2025-05-19 09:09 | disposition home or self-care (01) ==
LOC: HO.US 09:08
PROVIDERS: PCP Internal Medicine; Visit Provider Internal Medicine Rheumatology
DX: M19.041 Primary osteoarthritis, right hand (principal); M19.042 Primary osteoarthritis, left hand; M06.9 Rheumatoid arthritis, unspecified
CPT/HCPCS: 20606

== ENCOUNTER → 2025-05-19 09:08 | Outpatient (BNV) | payer MEDICARE, SELFPAY | PROVIDERS: PCP Internal Medicine; Visit Provider Student in an Organized Health Care Education/Training Program | DX: M19.041 Primary osteoarthritis, right hand (principal); M19.042 Primary osteoarthritis, left hand | CPT/HCPCS: 76881 ==

== ENCOUNTER 2025-06-07 12:20 | Outpatient (REF) | payer MEDICARE, SELFPAY ==
[2025-06-08 20:59] LABS: Antibody to SS-A Antigen <1.0 NEG AI (<1.0 NEG); Antibody to SS-B Antigen <1.0 NEG AI (<1.0 NEG)
[2025-06-10 08:14] LABS: TS Negative Control Passed; TS Panel A 0; TS Panel B 0; TS Positive Control Passed; TSpotTB Negative (Negative)
== END 2025-06-07 12:21 | disposition home or self-care (01) ==
LOC: HO.HKASLDS 12:20
PROVIDERS: PCP Internal Medicine; Visit Provider Internal Medicine Rheumatology
DX: M06.9 Rheumatoid arthritis, unspecified (principal); G62.9 Polyneuropathy, unspecified; M79.7 Fibromyalgia; H04.123 Dry eye syndrome of bilateral lacrimal glands; R73.03 Prediabetes
CPT/HCPCS: 36415; 86235; 86481; 99212

== ENCOUNTER 2025-06-07 12:20 | Outpatient (AMB) | payer MEDICARE, SELFPAY ==
--- NOTE | 2025-06-07 12:29 | MHC.OFFVIS ---
Vital Signs 06/07/25 12:30 Height 5 ft 4 in Weight 258 lb BMI 44.3 BP 120/76 Blood Pressure Location Lt brachial Position Sitting Pulse 77 Pulse Source Pulse Oximeter Pulse Oximetry (%) 98 Oxygen Delivery Method Room Air Intake Visit Reasons: 2 months Intake Note: pain and stiffness in her hands with concern for synovitis Accompanied by: Self / Same As Patient Allergies aspirin (ASPIRIN) Adverse Reaction (Unknown, Verified 06/07/25 12:34) STOMACH SENSITIVITY ibuprofen (IBUPROFEN) Adverse Reaction (Unknown, Verified 06/07/25 12:34) STOMACH SENSITIVITY HPI HPI 2 months: Details: She continues to have daily foot pain. Celebrex is ineffective. Gabapentin dose was increased but she could not tolerate it. In the past she was on Lyrica and reports that she could not tolerated as well. She will be following up with her PCP. Morning stiffness lasts at least 30 minutes. [facility] Medical History Bleeding hemorrhoids Osteoarthritis cervical spine Fibromyalgia Surgical History History of left knee replacement H/O colonoscopy History of carpal tunnel surgery S/P cholecystectomy H/O: hysterectomy Family History Father Colorectal cancer Paternal Grandmother Diabetes Mother Hypertension Lung cancer Social History Household Members Other:: , works from home, no exercise Housing: House Alcohol intake: never Patient Tobacco Use Status: Former Tobacco user Tobacco use type: Cigarette e-Cigarette/Vaping Use: Never Used service: No Current occupational status: employed 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 Good respiratory effort Skin: No lesions seen MSK: Tender to palpate bilateral MCPs, PIPs, DIPJ, phalanxes, wrists, shoulders, knees, ankles, midfoot, and MTPs. Squaring of bilateral CMCs. Heberden nodes present. She has soft tissue swelling right midfoot. No synovitis. Normal range of motion of upper extremities. Valgus valgus deformity of bilateral knees. Knee flexion 90 degrees. Limited full external rotation of hips. Bilateral trochanteric bursa tenderness palpated. Diffuse allodynia of extremities and back. Assessment & Plan Assessment & Plan (1) Rheumatoid arthritis: Comment: Seronegative (RF, CCP, CAMDEN), erosive. She has active inflammatory arthritis involving her right midfoot with diffuse polyarthralgias. Superimposed uncontrolled fibromyalgia is contributing to her joint pain. We discussed implications of erosive inflammatory arthritis, which is seen in her bilateral feet x-rays. Discuss next steps in treatment with course of prednisone short term and DMARD agent methotrexate. Discussed side effects, benefits and drug monitoring on methotrexate. Goal of treatment is to treat her current symptoms and prevent progression of erosive disease with DMARD therapy. Answered patient's questions to her satisfaction. Rheumatology history: Family history - sister has seronegative RA. Ultrasound bilateral 2nd MCPs revealed osteoarthritis. Code(s): M06.9 - Rheumatoid arthritis, unspecified Category: Medical Plan: T spot ordered After T spot results are back, I will send prescription for methotrexate 12.5 mg once weekly and folic acid 1 mg daily. After 1 month she will need labs for drug monitoring with CBC, creatinine, AST and ALT Prednisone course prescribed Information on DMARD therapy given to patient Return to clinic in 2 months. I will consider increasing methotrexate dose based on tolerability. (2) Dry eyes: Comment: She had a recent eye exam was told that she has dry eyes. I will further workup for secondary Sjogren syndrome with antibodies. Code(s): H04.123 - Dry eye syndrome of bilateral lacrimal glands Category: Medical Plan: SSA/SSB antibody ordered Return to clinic in 2 months (3) Peripheral neuropathy: Comment: She has history of prediabetes, which can cause lower extremity peripheral neuropathy in rare situations. TSH is normal. Code(s): G62.9 - Polyneuropathy, unspecified Category: Medical Plan: Follow up with PCP in June. Consider bilateral lower extremity EMGs for further workup of peripheral neuropathy (4) Fibromyalgia: Comment: Uncontrolled. Code(s): M79.7 - Fibromyalgia Category: Medical Plan: Follow up with PCP for fibromyalgia management Orders: Orders Sjogren's Antibodies Today H04.123 - Dry eye syndrome of bilateral lacrimal glands T Spot TB Today M06.9 - Rheumatoid arthritis, unspecified Medications: New prednisone Take 4 tablets daily 1 week, 3 tablets daily 1 week, 2 tablets daily 1 week, 1 tablet daily 1 week. Take with food. 5 mg PO DIRECTED 70 tabs 0RF Coding Level of Care Code Est Pt Level 4 (12323) Complex EM visit Add On G2211 Diagnoses Rheumatoid arthritis M06.9 Dry eyes H04.123 Peripheral neuropathy G62.9 Fibromyalgia M79.7
[2025-06-07 12:30] VITALS: BP 120/76; PULSE 77; O2SAT 98; BMI 44.3
== END 2025-06-07 13:12 | disposition home or self-care (01) ==
LOC: HO.RHES 12:21
PROVIDERS: PCP Internal Medicine; Visit Provider Internal Medicine Rheumatology
DX: M06.9 Rheumatoid arthritis, unspecified (principal); H04.123 Dry eye syndrome of bilateral lacrimal glands; G62.9 Polyneuropathy, unspecified; M79.7 Fibromyalgia
CPT/HCPCS: 99214; G2211

== ENCOUNTER 2025-06-20 07:59 | Outpatient (REF) | payer MEDICARE, SELFPAY ==
[2025-06-20 08:24] LABS: MANUAL DIFF FLAG NO
[2025-06-20 08:51] LABS: Hematocrit 40.4 % (37.0-47.0); Hemoglobin 13.1 g/dl (12.0-16.0); Imm Gran Abs Auto 0.02 X10*3/uL (0.00-0.03); Imm Gran Pct Auto 0.2 % (0.0-0.4); Lymphocytes Absolute Auto 2.8 X10*3/uL (1.2-4.9); Mean Corpuscular HGB Conc 32.4 g/dl (31.0-35.0); Mean Corpuscular Hemoglobin 28.4 pg (27.0-33.0); Mean Corpuscular Volume 87.4 fL (80.0-98.0); NRBC Abs Auto 0.000 X10*3/uL (0.0-0.012); NRBC Pct Auto 0.0 /100WBC (0.0-0.2); Platelet Count 254 X10*3/uL (160-400); Red Blood Count 4.62 X10*6/uL (4.20-5.50); White Blood Count 8.8 X10*3/uL (4.8-10.8)
[2025-06-20 09:28] LABS: Alanine Aminotransferase 30 U/L (0-31); Albumin Level 4.2 g/dL (3.5-5.0); Alkaline Phosphatase 73 U/L (39-117); Anion Gap 14 (12-20); Aspartate Amino Transferase 18 U/L (5-31); Blood Urea Nitrogen 17 mg/dL (9-16); Calcium 9.3 mg/dL (8.4-10.2); Carbon Dioxide 28 mmol/L (22-29); Chloride 104 mmol/L (96-108); Cholesterol 177 mg/dL (<200); Estimated Glomerular Filt Rate > 60; HDL Cholesterol 61 mg/dL (>40); Potassium 4.1 mmol/L (3.3-5.1); Sodium 142 mmol/L (135-145); Total Protein 6.9 g/dL (6.5-8.0); Triglycerides 180 mg/dL (<150)
[2025-06-20 09:45] LABS: Hemoglobin A1C 150.1115 umol/L; Total Hemoglobin (HGBA1C) 3386.4729 umol/L
[2025-06-20 10:00] LABS: Microalbum/Creatinine Ratio Ur 3.9 ug/mg cr (<30)
== END 2025-06-20 08:00 | disposition home or self-care (01) ==
LOC: HO.LAB 07:59
PROVIDERS: Visit Provider Internal Medicine
DX: E66.01 Morbid (severe) obesity due to excess calories (principal); I10 Essential (primary) hypertension; R73.9 Hyperglycemia, unspecified
CPT/HCPCS: 36415; 80053; 80061; 82043; 82570; 83036; 84443; 85025

== ENCOUNTER 2025-06-26 09:03 | Outpatient (AMB) | payer MEDICARE, SELFPAY ==
[2025-06-26 09:05] VITALS: BP 130/78; PULSE 78; O2SAT 98; BMI 44.1
--- NOTE | 2025-06-26 09:05 | A.OFFPC_ITS ---
Vital Signs 06/26/25 09:05 Height 5 ft 4 in Weight 257 lb BMI 44.1 BP 130/78 Blood Pressure Location Lt brachial Position Sitting Pulse 78 Pulse Source Pulse Oximeter Pulse Oximetry (%) 98 Intake Visit Reasons: 5 months f/up Allergies aspirin (ASPIRIN) Adverse Reaction (Unknown, Verified 06/26/25 09:06) STOMACH SENSITIVITY ibuprofen (IBUPROFEN) Adverse Reaction (Unknown, Verified 06/26/25 09:06) STOMACH SENSITIVITY Medication List - Last Reconciled 06/26/25 by Jacqueline Archer MD celecoxib 200 mg PO .weekly cholecalciferol (vitamin D3) 50 mcg PO DAILY MDD 50mcg CPAP As directed estradiol 0.01%(0.1mg/gram) (Estrace) 1 g vaginal 3XW folic acid 1 mg PO DAILY gabapentin 600 mg (2 x 300 mg) PO BEDTIME methotrexate sodium 12.5 mg (5 x 2.5 mg) PO QWEEK 4 weeks olmesartan 10 mg (1/2 x 20 mg) PO DAILY prednisone 5 mg PO DIRECTED sertraline 50 mg PO DAILY Tobacco use date assessed: 01/24/25 Fall risk assessment: No Falls in past year Last assessed Fall Risk: 06/26/25 Dental Screening Dental Screen Date: 12/13/24 HPI 5 months f/up HPI Details Patient presents for the follow-up on hypertension chronic anxiety and depression. Patient is established with hand booked folder and stitcher was diagnosed with seronegative rheumatoid arthritis, started on methotrexate and prednisone. Patient noticed significant improvement in general body achiness and stiffness after starting prednisone. [facility] Medical History (Updated 06/26/25 @ 12:03 by Jacqueline Archer MD) DEZ (obstructive sleep apnea) Rheumatoid arthritis Tubular adenoma of colon Morbid obesity Hyperglycemia HTN (hypertension) Depression, unspecified Bleeding hemorrhoids Osteoarthritis cervical spine Fibromyalgia Surgical History History of left knee replacement H/O colonoscopy History of carpal tunnel surgery S/P cholecystectomy H/O: hysterectomy Family History Father Colorectal cancer Paternal Grandmother Diabetes Mother Hypertension Lung cancer Social History Household Members Other:: , works from home, no exercise Housing: House Alcohol intake: never Patient Tobacco Use Status: Former Tobacco user Tobacco use type: Cigarette e-Cigarette/Vaping Use: Never Used service: No Current occupational status: employed 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 Cognitive needs: No Hearing needs: No Vision needs: Yes Questionnaire Thrive Questionnaire Date Thrive assessed: 12/13/24 I am a: Patient What is your living situation today?: I have a steady place to live Within the past 12 months, did the food you bought not last and you didn't have the money to get more?: Never true Within the past 12 months, did you worry whether your food would run out before you got money to buy more?: Never true Do you have trouble paying for medicines?: Yes Do you have trouble getting transportation to medical appointments?: No Do you have trouble paying your heating and electricity bill?: No Do you have trouble taking care of your child, family member or friend?: Yes Do you have trouble with day-to-day activities such as bathing, preparing meals, shopping, managing finances, etc.?: Yes Are you currently unemployed and looking for a job?: No Are you interested in more education?: No Please select the resources that you would like help with: None Currently or been in a relationship where the following occur: No concerns reported THRIVE Score: 0 PEGGY-7 AMB Questionnaire PEGGY-7 Date PEGGY - 7 assessed: 01/24/25 Source: Developed by Drs. Jan Araya, Angela Quijano, Maciel Rothman and colleagues, with an educational amy from [employer]. Review of Systems Const All systems reviewed & are unremarkable except as noted in HPI and below Eyes Reports no additional complaints ENT Reports no additional complaints Resp Reports no additional complaints GI Reports no additional complaints Reports no additional complaints Musc Reports no additional complaints Physical exam (Primary Care) Vital Signs: Last Vital Signs Pulse 78 06/26/25 09:05 BP 130/78 06/26/25 09:05 Pulse Ox 98 06/26/25 09:05 BMI result Body Mass Index 44.1 Tobacco/Smoking Status: Tobacco use Status Tobacco use date assessed 01/24/25 06/26/25 09:10 Patient Tobacco Use Status Former Tobacco user 06/26/25 09:10 Tobacco use type Cigarette 06/26/25 09:10 e-Cigarette/Vaping Use Never Used 06/26/25 09:10 Thrive Assessment: Date of Thrive Assessment Date Thrive assessed 12/13/24 06/26/25 09:10 Currently or been in a relationship where the following occur: No concerns reported Const General: no acute distress HENMT Head: Yes normal to inspection Mouth: Normal oral and palatal mucosa present Eyes General: appearance normal, both eyes and all related structures Resp Effort & Inspection: normal respiratory effort Auscultation: clear to auscultation bilaterally Cardio Rhythm: regular rhythm Heart sounds: S1 normal heart sound present and S2 normal heart sound present GI Inspection: Yes normal to inspection Palpation (GI): Soft to palpation Percussion: Yes normal to percussion Auscultation: normal bowel sounds Coding Level of Care Code Est Pt Level 4 (50173) Diagnoses Primary hypertension I10 Hypertension type: primary hypertension Hyperglycemia R73.9 Depression, unspecified F32.A Morbid obesity E66.01 Rheumatoid arthritis M06.9 Assessment & Plan Assessment & Plan (1) HTN (hypertension): Code(s): I10 - Essential (primary) hypertension Category: Medical Qualifiers: Hypertension type: primary hypertension Qualified Code(s): I10 - Essential (primary) hypertension Plan: Continue olmesartan (2) Hyperglycemia: Comment: A1C 6.2 06/2025 Code(s): R73.9 - Hyperglycemia, unspecified Category: Medical Plan: ADA diet increase exercise weight loss discussed with the patient monitor A1c in 3 months. Patient will start monitoring her fasting blood glucose (3) Depression, unspecified: Comment: Established with a counselor Code(s): F32.A - Depression, unspecified Category: Medical Plan: Continue sertraline follow-up with a counselor (4) Morbid obesity: Comment: Medicare does not cover GLP 1 agonist for weight loss Code(s): E66.01 - Morbid (severe) obesity due to excess calories Category: Medical Plan: Decreasing caloric intake increasing physical activity weight loss discussed with the patient (5) Rheumatoid arthritis: Comment: Seronegative (RF, CCP, CAMDEN), erosive. She has active inflammatory arthritis involving her right midfoot with diffuse polyarthralgias. Superimposed uncontrolled fibromyalgia is contributing to her joint pain. We discussed implications of erosive inflammatory arthritis, which is seen in her bilateral feet x-rays. Discuss next steps in treatment with course of prednisone short term and DMARD agent methotrexate. Discussed side effects, benefits and drug mo nitoring on methotrexate. Goal of treatment is to treat her current symptoms and prevent progression of erosive disease with DMARD therapy. Answered patient's questions to her satisfaction. Rheumatology history: Family history - sister has seronegative RA. Ultrasound bilateral 2nd MCPs revealed osteoarthritis. Code(s): M06.9 - Rheumatoid arthritis, unspecified Category: Medical Plan: Follow-up with rheumatology Orders: Orders Comprehensive [place]. Panel Fast 3 Months I10 - Essential (primary) hypertension, R73.9 - Hyperglycemia, unspecified, Z00.00 - Encounter for general adult medical examination without abnormal findings Complete Blood Count Auto Diff 3 Months I10 - Essential (primary) hypertension, R73.9 - Hyperglycemia, unspecified, Z00.00 - Encounter for general adult medical examination without abnormal findings Lipid Panel 3 Months I10 - Essential (primary) hypertension, R73.9 - Hyperglycemia, unspecified, Z00.00 - Encounter for general adult medical examination without abnormal findings Hemoglobin A1c 3 Months I10 - Essential (primary) hypertension, R73.9 - Hyperglycemia, unspecified, Z00.00 - Encounter for general adult medical examination without abnormal findings Microalbumin, Random (w Creat) 3 Months I10 - Essential (primary) hypertension, R73.9 - Hyperglycemia, unspecified, Z00.00 - Encounter for general adult medical examination without abnormal findings Medications: New olmesartan 10 mg (2 x 5 mg) PO DAILY 180 tabs 3RF Discontinued olmesartan Discontinued Reason: Doctor's Order 10 mg (1/2 x 20 mg) PO DAILY 45 tabs 3RF
== END 2025-06-26 09:39 | disposition home or self-care (01) ==
LOC: HO.HMCC 09:04
PROVIDERS: PCP Internal Medicine; Visit Provider Internal Medicine
DX: I10 Essential (primary) hypertension (principal); E66.01 Morbid (severe) obesity due to excess calories; M06.9 Rheumatoid arthritis, unspecified; Z68.42 Body mass index [BMI] 45.0-49.9, adult; R73.9 Hyperglycemia, unspecified; F32.A Depression, unspecified

== ENCOUNTER → 2025-06-26 09:03 | Outpatient (BNVA) | payer MEDICARE, SELFPAY | PROVIDERS: PCP Internal Medicine; Visit Provider Internal Medicine | DX: I10 Essential (primary) hypertension (principal); R73.9 Hyperglycemia, unspecified; F32.A Depression, unspecified; E66.01 Morbid (severe) obesity due to excess calories; M06.9 Rheumatoid arthritis, unspecified | CPT/HCPCS: 99212 ==

== ENCOUNTER 2025-06-29 11:01 | Outpatient (REF) | payer MEDICARE, SELFPAY ==
--- NOTE | ~2025-06-29 | MM_ITS ---
EXAMINATION: MM SCREENING DIGITAL BREAST TOMOSYNTHESIS, BILATERAL CLINICAL INFORMATION: Screening. Asymptomatic. COMPARISON: Comparison made to multiple prior, most recent June 22, 2024, and most remote June 05, 2022. TECHNIQUE: Digital breast tomosynthesis is performed in mediolateral oblique and craniocaudal views along with computer-aided detection (CAD). Additional views were taken if needed. FINDINGS: BREAST COMPOSITION: There are scattered areas of fibroglandular density (ACR BI-RADS breast composition Category b). BILATERAL BREASTS: No significant masses, suspicious calcifications or other abnormalities are seen in either breast. MM/MM tomosynthesis screening BI IMPRESSION: BILATERAL BREASTS: Negative, no mammographic evidence of malignancy. Normal interval follow-up is recommended in 12 months. ASSESSMENT: BI-RADS 1 - Negative RECOMMENDATION: Routine annual mammography screening. FOLLOW-UP: 1 year F/U This examination should not preclude the clinical evaluation of a suspicious palpable abnormality. This patient's information was entered into a reminder system with a target due date for their next mammogram. Electronically signed by: Malgorzata Marcos MD 07/01/2025 05:35 PM EDT
== END 2025-06-29 11:02 | disposition home or self-care (01) ==
LOC: HO.MAMMO 11:01
PROVIDERS: PCP Internal Medicine; Visit Provider Internal Medicine
DX: Z12.31 Encounter for screening mammogram for malignant neoplasm of breast (principal)
CPT/HCPCS: 77063; 77067

== ENCOUNTER → 2025-06-29 11:15 | Outpatient (BNV) | payer MEDICARE, SELFPAY | PROVIDERS: PCP Internal Medicine; Visit Provider Radiology Body Imaging | DX: Z12.31 Encounter for screening mammogram for malignant neoplasm of breast (principal) | CPT/HCPCS: 77063; 77067 ==

== ENCOUNTER 2025-07-05 14:21 | Outpatient (REF) | payer MEDICARE, SELFPAY ==
[2025-07-05 14:49] LABS: MANUAL DIFF FLAG NO
[2025-07-05 15:31] LABS: Hematocrit 38.2 % (37.0-47.0); Hemoglobin 12.9 g/dl (12.0-16.0); Imm Gran Abs Auto 0.02 X10*3/uL (0.00-0.03); Imm Gran Pct Auto 0.3 % (0.0-0.4); Lymphocytes Absolute Auto 1.1 X10*3/uL (1.2-4.9); Mean Corpuscular HGB Conc 33.8 g/dl (31.0-35.0); Mean Corpuscular Hemoglobin 28.7 pg (27.0-33.0); Mean Corpuscular Volume 84.9 fL (80.0-98.0); NRBC Abs Auto 0.000 X10*3/uL (0.0-0.012); NRBC Pct Auto 0.0 /100WBC (0.0-0.2); Platelet Count 210 X10*3/uL (160-400); Red Blood Count 4.50 X10*6/uL (4.20-5.50); White Blood Count 7.4 X10*3/uL (4.8-10.8)
[2025-07-05 16:11] LABS: Alanine Aminotransferase 32 U/L (0-31); Aspartate Amino Transferase 21 U/L (5-31); Estimated Glomerular Filt Rate > 60
== END 2025-07-05 14:22 | disposition home or self-care (01) ==
LOC: HO.LAB 14:21
PROVIDERS: PCP Internal Medicine; Visit Provider Internal Medicine Rheumatology
DX: Z79.899 Other long term (current) drug therapy (principal)
CPT/HCPCS: 36415; 82565; 84450; 84460; 85025

== ENCOUNTER 2025-07-27 12:12 | Outpatient (REF) | payer MEDICARE, SELFPAY ==
--- NOTE | ~2025-07-27 | US_ITS ---
EXAMINATION: US THYROID HISTORY: E04.1 - Nontoxic single thyroid nodule TECHNIQUE: Real-time grayscale ultrasound imaging was performed and images were reviewed. COMPARISON: Comparison is made with the prior examination dated 12/28/2024. FINDINGS: SIZE: The right thyroid lobe measures 4.1 x 2.2 x 2.0 cm. The left thyroid lobe measures 4.3 x 1.8 x 1.6 cm. The isthmus measures 4 mm. FLOW: Flow to the gland is normal. ECHOGENICITY: The echotexture of the gland is homogeneous. NODULES: There is a single solid nodule noted as described below: Nodule #: 1 Location: Left lower pole measuring 7 x 6 x 5 mm (previously 7 x 5 x 6 mm). Shape: Taller than wide (3 points) Margins: Smooth (0 points) Echotexture: Hypoechoic (2 points) Composition: Mostly solid (2 points) Calcifications: Punctate calcifications (3 points) Total points: 10 TIRADS: TR5: Highly suspicious. US/US thyroid IMPRESSION: Solitary solid nodule at the lower pole of the left thyroid lobe which is unchanged in size. Continued follow-up is recommended. ACR TI-RADS Guidelines TR1 (0 points): Benign. No follow-up or biopsy required TR2 (2 points): Not Suspicious. No biopsy or follow up indicated TR3 (3 points): Mildly Suspicious. FNA if >= 2.5 cm, Follow if >= 1.5 cm TR4 (4-6 points): Moderately Suspicious. FNA if >= 1.5 cm, Follow if >= 1.0 cm TR5 (>=7 points): Highly Suspicious. FNA if >= 1.0 cm, Follow if >= 0.5 cm Electronically signed by: Jan Meng MD 07/27/2025 01:08 PM EDT
== END 2025-07-27 12:13 | disposition home or self-care (01) ==
LOC: HO.US 12:12
PROVIDERS: PCP Internal Medicine; Visit Provider Internal Medicine
DX: E04.1 Nontoxic single thyroid nodule (principal)
CPT/HCPCS: 76536

== ENCOUNTER → 2025-07-27 12:14 | Outpatient (BNV) | payer MEDICARE, SELFPAY | PROVIDERS: PCP Internal Medicine; Visit Provider Radiology Diagnostic Radiology | DX: E04.1 Nontoxic single thyroid nodule (principal) | CPT/HCPCS: 76536 ==

== ENCOUNTER 2025-08-03 11:30 | Outpatient (REF) | payer MEDICARE, SELFPAY ==
[2025-08-03 12:30] LABS: Alanine Aminotransferase 25 U/L (0-31); Aspartate Amino Transferase 22 U/L (5-31)
== END 2025-08-03 11:31 | disposition home or self-care (01) ==
LOC: HO.LAB 11:30
PROVIDERS: Visit Provider Internal Medicine Rheumatology
DX: Z79.899 Other long term (current) drug therapy (principal)
CPT/HCPCS: 36415; 84450; 84460

== ENCOUNTER 2025-08-08 14:10 | Outpatient (AMB) | payer MEDICARE, SELFPAY ==
--- NOTE | 2025-08-08 14:31 | A.OFFVIS_ITS ---
Vital Signs 08/08/25 14:32 Height 5 ft 4 in Weight 260 lb 2.327 oz BMI 44.6 BP 120/80 Blood Pressure Location Lt brachial Position Sitting Pulse 84 Pulse Source Pulse Oximeter Pulse Oximetry (%) 97 Oxygen Delivery Method Room Air Intake Visit Reasons: follow up Intake Note: pain and stiffness in her hands with concern for synovitis Accompanied by: Self / Same As Patient Allergies aspirin (ASPIRIN) Adverse Reaction (Unknown, Verified 08/08/25 14:31) STOMACH SENSITIVITY ibuprofen (IBUPROFEN) Adverse Reaction (Unknown, Verified 08/08/25 14:31) STOMACH SENSITIVITY Medication List - Last Reconciled 08/08/25 by Justus Mesa MD cholecalciferol (vitamin D3) 50 mcg PO DAILY MDD 50mcg CPAP As directed estradiol 0.01%(0.1mg/gram) (Estrace) 1 g vaginal 3XW folic acid 1 mg PO DAILY gabapentin 600 mg (2 x 300 mg) PO BEDTIME methotrexate sodium 12.5 mg (5 x 2.5 mg) PO QWEEK 12 weeks olmesartan 10 mg (2 x 5 mg) PO DAILY sertraline 50 mg PO DAILY HPI HPI follow up: Details: Since taking MTX she has headaches, feels unwell and has more joint pain. Feels achy. She felt 90% better when she took prednisone with relief in pain. She was moving more with walking and had more energy getting things done at her home and shopping. 7/10 intensity pain level PFSH Medical History DEZ (obstructive sleep apnea) Rheumatoid arthritis Tubular adenoma of colon Morbid obesity Hyperglycemia HTN (hypertension) Depression, unspecified Bleeding hemorrhoids Osteoarthritis cervical spine Fibromyalgia Surgical History History of left knee replacement H/O colonoscopy History of carpal tunnel surgery S/P cholecystectomy H/O: hysterectomy Family History Father Colorectal cancer Paternal Grandmother Diabetes Mother Hypertension Lung cancer Social History Household Members Other:: , works from home, no exercise Housing: House Alcohol intake: never Patient Tobacco Use Status: Former Tobacco user Tobacco use type: Cigarette e-Cigarette/Vaping Use: Never Used service: No Current occupational status: employed 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 Good respiratory effort Skin: No lesions seen MSK: Tender to palpate 2nd MCP, 3rd PIP, left PIPs, right CMC. Squaring of bilateral CMCs. Heberden nodes present. Bilateral MTP tenderness. Normal range of motion of upper extremities. Valgus valgus deformity of bilateral knees. Knee flexion 90 degrees. Limited full external rotation of hips. Assessment & Plan Assessment & Plan (1) Rheumatoid arthritis: Comment: Inflammatory arthritis is better controlled after prednisone course. She is not tolerating methotrexate as she experiences headaches, feeling unwell and joint pain after taking methotrexate. Rheumatology history: Family history - sister has seronegative RA. Ultrasound bilateral 2nd MCPs revealed osteoarthritis. Seronegative (RF, CCP, CAMDEN), erosive. She has active inflammatory arthritis involving her right midfoot with diffuse polyarthralgias. Superimposed uncontrolled fibromyalgia is contributing to her joint pain. Code(s): M06.9 - Rheumatoid arthritis, unspecified Category: Medical Plan: Continue methotrexate 12.5 mg once weekly Increase folic acid to 2 mg daily She will contact office in 2 weeks if her symptoms after taking methotrexate have not improved. I will then change folic acid to leucovorin 5 mg the day after taking methotrexate Prednisone course prescribed Return to clinic in 3 months (2) Dry eyes: Comment: She had a recent eye exam was told that she has dry eyes. SSA/SSB antibody negative Code(s): H04.123 - Dry eye syndrome of bilateral lacrimal glands Category: Medical Plan: No further rheumatological testing is indicated at this time Orders: Orders Complete Blood Count Auto Diff Today Z79.899 - Other alf (current) drug therapy Creatinine Today Z79.899 - Other alf (current) drug therapy C Reactive Protein Today Z79.899 - Other dedicated intermodal 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) drug therapy Erythrocyte Sedimentation Rate Today Z79.899 - Other dedicated intermodal 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) drug therapy Medications: New prednisone Take 4 tablets daily 3 days, 3 tablets daily 3 days, 2 tablets daily 3 days, 1 tablet daily 3 days then stop. Take prednisone with food. 5 mg PO DIRECTED 30 tabs 0RF Changed From folic acid 1 mg PO DAILY 30 tabs 11RF To folic acid 2 mg (2 x 1 mg) PO DAILY 60 tabs 11RF Coding Level of Care Code Est Pt Level 4 (89984) Complex EM visit Add On G2211 Diagnoses Rheumatoid arthritis M06.9 Dry eyes H04.123
[2025-08-08 14:32] VITALS: BP 120/80; PULSE 84; O2SAT 97; BMI 44.6
== END 2025-08-08 15:05 | disposition home or self-care (01) ==
LOC: HO.RHES 14:11
PROVIDERS: PCP Internal Medicine; Visit Provider Internal Medicine Rheumatology
DX: M06.9 Rheumatoid arthritis, unspecified (principal); H04.123 Dry eye syndrome of bilateral lacrimal glands
CPT/HCPCS: 99214; G2211

== ENCOUNTER 2025-08-08 14:10 | Outpatient (REF) | payer MEDICARE, SELFPAY ==
[2025-08-08 17:58] LABS: MANUAL DIFF FLAG NO
[2025-08-08 18:20] LABS: Hematocrit 38.0 % (37.0-47.0); Hemoglobin 12.4 g/dl (12.0-16.0); Imm Gran Abs Auto 0.02 X10*3/uL (0.00-0.03); Imm Gran Pct Auto 0.3 % (0.0-0.4); Lymphocytes Absolute Auto 1.4 X10*3/uL (1.2-4.9); Mean Corpuscular HGB Conc 32.6 g/dl (31.0-35.0); Mean Corpuscular Hemoglobin 28.6 pg (27.0-33.0); Mean Corpuscular Volume 87.6 fL (80.0-98.0); NRBC Abs Auto 0.000 X10*3/uL (0.0-0.012); NRBC Pct Auto 0.0 /100WBC (0.0-0.2); Platelet Count 248 X10*3/uL (160-400); Red Blood Count 4.34 X10*6/uL (4.20-5.50); White Blood Count 6.0 X10*3/uL (4.8-10.8)
[2025-08-08 18:38] LABS: Estimated Glomerular Filt Rate > 60
== END 2025-08-08 14:11 | disposition home or self-care (01) ==
LOC: HO.HKASLDS 14:10
PROVIDERS: PCP Internal Medicine; Visit Provider Internal Medicine Rheumatology
DX: M06.9 Rheumatoid arthritis, unspecified (principal); H04.123 Dry eye syndrome of bilateral lacrimal glands; Z79.899 Other long term (current) drug therapy; Z79.631 Long term (current) use of antimetabolite agent
CPT/HCPCS: 36415; 82565; 85025; 85652; 86140; 99212

== ENCOUNTER 2025-09-25 08:34 | Outpatient (REF) | payer MEDICARE, SELFPAY ==
[2025-09-25 08:56] LABS: MANUAL DIFF FLAG NO
[2025-09-25 09:19] LABS: Hematocrit 39.3 % (37.0-47.0); Hemoglobin 12.9 g/dl (12.0-16.0); Imm Gran Abs Auto 0.01 X10*3/uL (0.00-0.03); Imm Gran Pct Auto 0.2 % (0.0-0.4); Lymphocytes Absolute Auto 1.2 X10*3/uL (1.2-4.9); Mean Corpuscular HGB Conc 32.8 g/dl (31.0-35.0); Mean Corpuscular Hemoglobin 28.9 pg (27.0-33.0); Mean Corpuscular Volume 87.9 fL (80.0-98.0); NRBC Abs Auto 0.000 X10*3/uL (0.0-0.012); NRBC Pct Auto 0.0 /100WBC (0.0-0.2); Platelet Count 246 X10*3/uL (160-400); Red Blood Count 4.47 X10*6/uL (4.20-5.50); White Blood Count 5.4 X10*3/uL (4.8-10.8)
[2025-09-25 09:26] LABS: Hemoglobin A1C 96.0529 umol/L
[2025-09-25 09:36] LABS: Alanine Aminotransferase 29 U/L (0-31); Albumin Level 4.4 g/dL (3.5-5.0); Alkaline Phosphatase 73 U/L (39-117); Anion Gap 12 (12-20); Aspartate Amino Transferase 22 U/L (5-31); Blood Urea Nitrogen 22 mg/dL (9-16); Calcium 9.6 mg/dL (8.4-10.2); Carbon Dioxide 25 mmol/L (22-29); Chloride 108 mmol/L (96-108); Cholesterol 150 mg/dL (<200); Estimated Glomerular Filt Rate > 60; HDL Cholesterol 55 mg/dL (>40); Potassium 4.1 mmol/L (3.3-5.1); Sodium 141 mmol/L (135-145); Total Protein 7.2 g/dL (6.5-8.0); Triglycerides 98 mg/dL (<150)
[2025-09-25 10:07] LABS: Microalbum/Creatinine Ratio Ur 5.1 ug/mg cr (<30)
== END 2025-09-25 08:35 | disposition home or self-care (01) ==
LOC: HO.LAB 08:34
PROVIDERS: PCP Internal Medicine; Visit Provider Internal Medicine
DX: Z00.00 Encounter for general adult medical examination without abnormal findings (principal); I10 Essential (primary) hypertension; R73.9 Hyperglycemia, unspecified
CPT/HCPCS: 36415; 80053; 80061; 82043; 82570; 83036; 85025

== ENCOUNTER 2025-10-02 09:41 | Outpatient (AMB) | payer MEDICARE, SELFPAY ==
[2025-10-02 09:50] VITALS: BP 120/78; PULSE 68; RESP 17; TEMP 36.8; O2SAT 95; BMI 45.0
--- NOTE | 2025-10-02 09:50 | A.OFFVIS_ITS ---
Intake Vital Signs 10/02/25 09:50 Height 5 ft 4 in Weight 262 lb BMI 45.0 BP 120/78 Blood Pressure Location Lt brachial Position Sitting Respiration 17 Pulse 68 Pulse Source Pulse Oximeter Temp 98.2 F Temp Source Oral Pulse Oximetry (%) 95 Oxygen Delivery Method Room Air Intake Visit Reasons: AWV [id number] Intake Note: Pt is here today for AWV. Allergies aspirin (ASPIRIN) Adverse Reaction (Unknown, Verified 10/02/25 09:56) STOMACH SENSITIVITY ibuprofen (IBUPROFEN) Adverse Reaction (Unknown, Verified 10/02/25 09:56) STOMACH SENSITIVITY Medication List - Last Reconciled 10/02/25 by Jacqueline Archer MD cholecalciferol (vitamin D3) 50 mcg PO DAILY MDD 50mcg CPAP As directed estradiol 0.01%(0.1mg/gram) (Estrace) 1 g vaginal 3XW gabapentin 600 mg (2 x 300 mg) PO BEDTIME leucovorin calcium 5 mg PO QWEEK 12 weeks methotrexate sodium 12.5 mg (5 x 2.5 mg) PO QWEEK 12 weeks olmesartan 10 mg (2 x 5 mg) PO DAILY sertraline 50 mg PO DAILY HPI AWV G0438 HPI Details Patient presents for wellness visit she complains of dyspnea on exertion getting progressively worse associated with daily activities like making beds or doing laundry. Patient denies PND orthopnea chest pain shortness or breath at rest or palpitations cough or pleurisy. She has not been physically active being busy with taking care of her with Parkinson's disease. Depression is controlled on current medication and patient is established with psychiatrist Initiated the conversation about Advanced Directives. Advanced Directives help? patients prepare for current and future decisions about their medical treatment? and place of care. Discussed with patient that it is a process where a patients? current condition and prognosis are reviewed, their wishes for information? regarding their illness are elicited, and likely medical dilemmas are presented? and options discussed. The form can be amended as needed, reviewed yearly and? make changes as needed IPPE/AWV ? year old presents? for her ? Annual? Wellness Visit, initial visit.? Medical / Social History Reviewed? Past Medical History ?Yes? . ? [place]? of Care / Care Team list updated ?Yes . ? Surgical/Hospitalization? History ?Yes . ? Current Medications? (including OTC and supplements) ?Yes . ? Family History ?Yes? . ? Tobacco? Control form ?Yes . ? AUDIT-C (Alcohol use) form? ?Yes . ? Illicit drug use in Social? History ?Yes . ? Current diagnosis of? depression? ?No ? Appropriate PHQ2/PHQ9? completed ?Yes . ? Data entered by ?Medical? Operating Engineer Apprentice and reviewed by provider ? Fall Risk ? Fall? History? Have you had any falls with? injury in the past year? ?No . ? Have you had two or more? falls in the past year? ?No . ? Fall Risk Assessment: ?No? falls in the past year . ? HRA filled out by? the patient, reviewed by Provider and scanned. ? IPPE/AWV ? Balance? [place]? ?Yes . ? Tandem? walk ?Yes . ? Walk and? Turn ?Yes . ? Rise from? sit to stand ?Yes . ?Vision? Corrective? lens ?Yes ? Vision? screen ? Up-to-date, has an appointment [] for vision? screening and glaucoma screening ?Hearing? Whisper? test ?pass .? Initiated the conversation about Advanced Directives. Advanced Directives help? patients prepare for current and future decisions about their medical treatment? and place of care. Discussed with patient that it is a process where a patients? current condition and prognosis are reviewed, their wishes for information? regarding their illness are elicited, and likely medical dilemmas are presented? and options discussed. The form can be amended as needed, reviewed yearly and? make changes as needed Written? Plan?Completed. See Patient? Documents. [facility] Medical History (Updated 10/02/25 @ 10:38 by Jacqueline Archer MD) Thyroid nodule DEZ (obstructive sleep apnea) Rheumatoid arthritis Tubular adenoma of colon Morbid obesity Hyperglycemia HTN (hypertension) Depression, unspecified Bleeding hemorrhoids Osteoarthritis cervical spine Fibromyalgia Surgical History (Updated 10/02/25 @ 10:22 by Jacqueline Archer MD) History of left knee replacement H/O colonoscopy History of carpal tunnel surgery S/P cholecystectomy H/O: hysterectomy Family History Father Colorectal cancer Paternal Grandmother Diabetes Mother Hypertension Lung cancer Social History (Updated 10/02/25 @ 10:16 by Jacqueline Archer MD) Household Members Other:: , works from home, no exercise, with Parkinson Housing: House Alcohol intake: never Patient Tobacco Use Status: Former Tobacco user Tobacco use type: Cigarette e-Cigarette/Vaping Use: Never Used service: No Current occupational status: employed 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 Cognitive needs: No Hearing needs: No Vision needs: Yes Questionnaire Medicare Wellness Checkup [age] What gender do you identify with?: female During the past 4 weeks, how much have you been bothered by emotional problems such as feeling anxious, depressed, irritable, sad or downhearted, and blue?: quite a bit During the past 4 weeks, has your physical & emotional health limited your social activities with family, friends, neighbors, or groups?: extremely During the past 4 weeks, how much bodily pain have you generally had?: severe pain During the past 4 weeks, was someone available to help you if you needed & wanted help?: yes, a little During the past 4 weeks, what was the hardest physical activity you could do for at least 2 minutes?: light Can you get to places out of walking distance without help? (For eg., can you travel alone on buses, taxis or drive your car?): Yes Can you go shopping for groceries or clothes without someone's help?: Yes Can you prepare your own meals?: Yes Can you do your housework without help?: Yes Because of any health problems, do you need the help of another person with your personal care needs such as eating, bathing, dressing or getting around the house?: No Can you handle your own money without help?: Yes During the past 4 weeks, how would you rate your health in general?: fair During the past 4 weeks how have things been going for you?: pretty bad Are you having difficulties driving your car?: sometimes Do you always fasten your seat belt when you are in a car?: yes, usually During past 4 weeks, have you been bothered by the following: never: Trouble eating well?, Teeth or denture problems? and Problems using the telephone?, sometimes: Falling or dizzy when standing up, often: Sexual problems? and always: Tiredness or fatigue? Have you fallen 2 or more times in the past year?: No Are you afraid of falling?: Yes Are you a smoker?: no During the past 4 weeks, how many drinks of wine, beer, or other alcoholic beverages did you have?: no alcohol at all Do you exercise for about 20 minutes 3 or more times a week?: no, I usually do not exercise this much Have you been given information to help with the following?: no: Hazards in your house that might hurt you? and no: Keeping track of your medications? How often do you have trouble taking medicines the way you have been told to take them?: I always take medicine as prescribed How confident are you that you can control & manage most of your health problems?: somewhat confident What is your race?: White Mini Mental State Exam (MMSE) Orientation What is the (year) (season) (date) (day) (month)?: year, season, date, day and month Where are we (state) (county) (town or city) (hospital) (floor)?: state, county, town or city, hospital/clinic and floor Registration Name of 3 unrelated objects clearly and slowly, then ask patient to repeat all 3 of them. (1st repeat determines score. Make sure they can repeat all three): object 1, object 2 and object 3 Attention & Calculation (CHOOSE ONE) Spell WORLD backwards (DLROW): 5 letters Recall Ask patient to repeat the 3 items from question #3.: object 1, object 2 and object 3 Language Show patient a wristwatch & ask what it is. Repeat for pencil.: watch and pencil Ask the patient to repeat the phrase 'No ifs, ands, or buts' after you.: correct Ask the patient to 'take a piece of paper with their right hand' 'fold paper in half' 'place paper on floor': take paper in right hand, fold paper in half and place paper on floor Print the sentence 'CLOSE YOUR EYES' on a piece. If patient actually closes eyes then score.: followed written direction Give patient a blank piece of paper & ask to write a sentence. Score if it contains a noun & verb.: sentence contains subject and verb Score Score: 29 PHQ-9 Over the last 2 weeks, how often have you been bothered by any of the following problems? 1. Little interest or pleasure in doing things: not at all 2. Feeling down, depressed, or hopeless: not at all 3. Trouble falling or staying asleep, or sleeping too much: nearly every day 4. Feeling tired or having little energy: nearly every day 5. Poor appetite or overeating: several days 6. Feeling bad about yourself - or that you are a failure or have let yourself or your family down: not at all 7. Trouble concentrating on things, such as reading the newspaper or watching television: nearly every day 8. Moving or speaking so slowly that other people could have noticed. Or the opposite - being so fidgety or restless that you have been moving around a lot more than usual: not at all 9. Thoughts that you would be better off or of hurting yourself in some way: not at all Total score: 10 Depression Screening Interpretation: Positive Depression Screening Done: Yes Source: Developed by Drs. Jan Araya, Angela Quijano, Maciel Rothman and colleagues, with an educational amy from [employer]. Review of Systems Const All systems reviewed & are unremarkable except as noted in HPI and below Eyes Reports no additional complaints ENT Reports no additional complaints Card Reports no additional complaints Resp Reports no additional complaints GI Reports no additional complaints Reports no additional complaints Physical Exam Vital Signs: Last Vital Signs Temp 98.2 F 10/02/25 09:50 Pulse 68 10/02/25 09:50 Resp 17 10/02/25 09:50 BP 120/78 10/02/25 09:50 Pulse Ox 95 10/02/25 09:50 Oxygen Delivery Method Room Air 10/02/25 09:50 BMI result Body Mass Index 45.0 Const General: no acute distress HEENT Head: Yes normal to inspection Ears: hearing grossly normal bilaterally Eyes General: appearance normal, both eyes and all related structures Neck Neck: Yes no lymphadenopathy and Yes supple Resp Effort & Inspection: normal respiratory effort Auscultation: clear to auscultation bilaterally Cardio Rhythm: regular rhythm Heart sounds: S1 normal heart sound present and S2 normal heart sound present GI Inspection: Yes normal to inspection and Yes obesity Palpation (GI): Soft to palpation Percussion: Yes normal to percussion Auscultation: normal bowel sounds Extrem General: Yes no clubbing, cyanosis or edema Assessment & Plan Assessment & Plan (1) FATIMA (dyspnea on exertion): Code(s): R06.09 - Other forms of dyspnea Plan: EKG showed normal sinus rhythm no ST-T changes. Patient will have chest x-ray and echocardiogram to evaluate for ejection fraction. (2) Depression, unspecified: Comment: Established with Psychiatry and counselor Code(s): F32.A - Depression, unspecified Plan: Continue sertraline (3) HTN (hypertension): Code(s): I10 - Essential (primary) hypertension Qualifiers: Hypertension type: primary hypertension Qualified Code(s): I10 - Es sential (primary) hypertension Plan: Continue losartan (4) Hyperglycemia: Comment: A1C 6.2 06/2025 Code(s): R73.9 - Hyperglycemia, unspecified Plan: A1c is 6.0. ADA diet regular exercise weight loss discussed with the patient (5) Morbid obesity: Comment: Medicare does not cover GLP 1 agonist for weight loss Code(s): E66.01 - Morbid (severe) obesity due to excess calories Plan: Decreasing caloric intake increasing physical activity discussed with the patient (6) H/O colonoscopy: Comment: [facility] [place] 1 TA, repeat 5 ys Code(s): Z98.890 - Other specified postprocedural states Plan: Follow-up with GI (7) Rheumatoid arthritis: Comment: Inflammatory arthritis is better controlled after prednisone course. She is not tolerating methotrexate as she experiences headaches, feeling unwell and joint pain after taking methotrexate. Rheumatology history: Family history - sister has seronegative RA. Ultrasound bilateral 2nd MCPs revealed osteoarthritis. Seronegative (RF, CCP, [place]), ero sive. She has active inflammatory arthritis involving her right midfoot with diffuse polyarthralgias. Superimposed uncontrolled fibromyalgia is contributing to her joint pain. Code(s): M06.9 - Rheumatoid arthritis, unspecified Plan: Established with rheumatology (8) DEZ (obstructive sleep apnea): Comment: Severe degree of sleep apnea. The AHI was 37/hr and oxygen jeffy was 78%. on Cpap, established with sleep medicine Code(s): G47.33 - Obstructive sleep apnea (adult) (pediatric) Plan: Follow-up with sleep Medicine. Patient is concerned about nocturnal hypoxia and will discuss overnight oximetry monitoring with sleep medicine (9) Thyroid nodule: Comment: 7x6x5 mm 12/2024, repeat US in 04/2025 unchanged, check in 1 yr Code(s): E04.1 - Nontoxic single thyroid nodule Plan: Repeat thyroid ultrasound in July next year Orders: Orders CA echo transthorac w con Today R06.09 - Other forms of dyspnea AMB EKG-In Office Today I10 - Essential (primary) hypertension, R06.09 - Other forms of dyspnea Comprehensive [place]. Panel Fast 6 Months E55.9 - Vitamin D deficiency, unspecified, I10 - Essential (primary) hypertension, R73.9 - Hyperglycemia, unspecified Hemoglobin A1c 6 Months E55.9 - Vitamin D deficiency, unspecified, I10 - Essential (primary) hypertension, R73.9 - Hyperglycemia, unspecified Complete Blood Count Auto Diff 6 Months E55.9 - Vitamin D deficiency, unspecified, I10 - Essential (primary) hypertension, R73.9 - Hyperglycemia, unspecified Vitamin D 25-OH Total 6 Months E55.9 - Vitamin D deficiency, unspecified, I10 - Essential (primary) hypertension, R73.9 - Hyperglycemia, unspecified Microalbumin, Random (w Creat) 6 Months E55.9 - Vitamin D deficiency, unspecified, I10 - Essential (primary) hypertension, R73.9 - Hyperglycemia, unspecified US thyroid 07/17/26 E04.1 - Nontoxic single thyroid nodule Lipid Panel 6 Months E55.9 - Vitamin D deficiency, unspecified, I10 - Essential (primary) hypertension, R73.9 - Hyperglycemia, unspecified UA w Microscopic 6 Months E55.9 - Vitamin D deficiency, unspecified, I10 - Essential (primary) hypertension, R73.9 - Hyperglycemia, unspecified Medications: New clobetasol 0.05% 1 appl topical BEDTIME 30 grams 0RF Quality Reporting (2019) Depression/Bipolar (159/160/161/177) PHQ-9: Total score: 10 Coding Level of Care Code Medicare Subsequent (G0439) Diagnoses FATIMA (dyspnea on exertion) R06.09 Depression, unspecified F32.A Primary hypertension I10 Hypertension type: primary hypertension Hyperglycemia R73.9 Morbid obesity E66.01 H/O colonoscopy Z98.890 Rheumatoid arthritis M06.9 DEZ (obstructive sleep apnea) G47.33 Thyroid nodule E04.1 CPT Codes Advance Care Planning - Advance Care Planning discussion: On file, no changes ([id number]) Advance Care Planning - Time spent: 1-15 minutes, on File ([id number]) Advance Care Planning Advance Care Planning discussion: On file, no changes Forms completed: Health Care Proxy Time spent: 1-15 minutes, on File
== END 2025-10-02 16:27 | disposition home or self-care (01) ==
LOC: HO.HMCC 09:42
PROVIDERS: PCP Internal Medicine; Visit Provider Internal Medicine
DX: Z00.00 Encounter for general adult medical examination without abnormal findings (principal); E66.01 Morbid (severe) obesity due to excess calories; Z68.42 Body mass index [BMI] 45.0-49.9, adult; M06.9 Rheumatoid arthritis, unspecified; R06.09 Other forms of dyspnea; F32.A Depression, unspecified; I10 Essential (primary) hypertension; R73.9 Hyperglycemia, unspecified; Z98.890 Other specified postprocedural states; G47.33 Obstructive sleep apnea (adult) (pediatric); E04.1 Nontoxic single thyroid nodule

== ENCOUNTER 2025-10-02 09:41 | Outpatient (REF) | payer MEDICARE, SELFPAY ==
--- NOTE | ~2025-10-02 | XR_ITS ---
EXAMINATION: XR CHEST CLINICAL INFORMATION: R06.09 - Other forms of dyspnea COMPARISON: MR #[id number]. TECHNIQUE: PA and lateral views FINDINGS: Pulmonary reticular pattern. No consolidation, pleural effusion or pneumothorax. No hyperinflation. Cardiomediastinal silhouette size is normal. Mild multilevel thoracic spondylosis. Vascular clips right upper quadrant abdomen likely prior cholecystectomy. Degenerative changes in the common clavicular joint. Patient's large body habitus. XR/XR chest 2V IMPRESSION: Concerning chronic interstitial lung disease without acute airspace disease. Electronically signed by: Hemanth Braun MD 10/02/2025 11:12 AM KADEN
== END 2025-10-02 09:42 | disposition home or self-care (01) ==
LOC: HO.HMGCX 09:41
PROVIDERS: PCP Internal Medicine; Visit Provider Internal Medicine
DX: Z00.00 Encounter for general adult medical examination without abnormal findings (principal); R06.09 Other forms of dyspnea; F32.A Depression, unspecified; I10 Essential (primary) hypertension; M06.9 Rheumatoid arthritis, unspecified; R73.9 Hyperglycemia, unspecified; G47.33 Obstructive sleep apnea (adult) (pediatric); E04.1 Nontoxic single thyroid nodule; Z68.42 Body mass index [BMI] 45.0-49.9, adult; E66.01 Morbid (severe) obesity due to excess calories; Z98.890 Other specified postprocedural states; Z79.899 Other long term (current) drug therapy; Z79.631 Long term (current) use of antimetabolite agent; Z87.891 Personal history of nicotine dependence
CPT/HCPCS: 71046

== ENCOUNTER → 2025-10-02 10:49 | Outpatient (BNV) | payer MEDICARE, SELFPAY | PROVIDERS: PCP Internal Medicine; Visit Provider Radiology Diagnostic Radiology | DX: R06.09 Other forms of dyspnea (principal) | CPT/HCPCS: 71046 ==

== ENCOUNTER 2025-10-12 09:55 | Outpatient (AMB) | payer MEDICARE, SELFPAY ==
--- NOTE | 2025-10-12 09:59 | MHC.OFFVIS ---
Vital Signs 10/12/25 10:00 Height 5 ft 4 in Weight 262 lb BMI 45.0 Intake Visit Reasons: Pain in unspecified ankle and joints of unspecifie Intake Note: Nahomy is a 70 year old female who presents today as a new patient for bilateral foot pain. Patient states her pain is more major on her right foot. Her 5th metatarsal of her right foot is also twisted causing her to walk on the side of the toe, similar situation is happening in the 4th metatarsal of her left foot. She reports pain and twisting has been happening for about 2 years, although in the last 9 months has intensified. Allergies aspirin (ASPIRIN) Adverse Reaction (Unknown, Verified 10/12/25 10:00) STOMACH SENSITIVITY ibuprofen (IBUPROFEN) Adverse Reaction (Unknown, Verified 10/12/25 10:00) STOMACH SENSITIVITY HPI Comments Details: The patient is a 70-year-old female with a past medical history as seen below presenting with bilateral foot and ankle pain. The pain is more severe on the right side and has been present for approximately nine months, causing a fear of falling. She describes the pain as originating on the outside of the ankle and radiating up into her leg and down into her toes. The pain is minimal while sitting but significantly worsens upon standing and walking, to the point that a trip to the grocery store makes her unable to walk into her house afterward. Associated symptoms include pain in the arch and heel, consistent with plantar fasciitis. She has bunions and hammertoes, with the right 5th toe rubbing painfully in shoes. She also experiences a sensation of the remaining toes bilaterally pressing against each other. She also notes a fallen arch. She denies any recent injury or hearing a cracking or popping sound, and reports swelling only after being on her feet for extended periods. Her medical history is significant for osteoarthritis, rheumatoid arthritis, and fibromyalgia. She is on methotrexate for her rheumatoid arthritis, which is a new diagnosis, and notes that Tylenol is ineffective for her pain, while a prior course of prednisone provided relief. Past surgical history includes a left knee replacement, and she also has a torn meniscus. The patient finds relief by wearing Hokas at home and cannot walk barefoot. She has been attempting stretching exercises for the plantar fasciitis. She reports difficulty wearing supportive shoes due to pain on the dorsal aspect of her feet. She denies any other pedal concerns. Denies any other pedal injuries. [facility] Medical History (Updated 10/12/25 @ 10:37 by Kourtney Collazo DPM) Hammertoes of both feet Hallux valgus Prediabetes Pes planus Chronic instability of ankle Plantar fasciitis, bilateral Bilateral ankle pain Bilateral foot pain Thyroid nodule DEZ (obstructive sleep apnea) Rheumatoid arthritis Tubular adenoma of colon Morbid obesity Hyperglycemia HTN (hypertension) Depression, unspecified Bleeding hemorrhoids Osteoarthritis cervical spine Fibromyalgia Surgical History (Updated 10/02/25 @ 10:22 by Jacqueline Archer MD) History of left knee replacement H/O colonoscopy History of carpal tunnel surgery S/P cholecystectomy H/O: hysterectomy Family History Father Colorectal cancer Paternal Grandmother Diabetes Mother Hypertension Lung cancer Social History (Updated 10/02/25 @ 10:16 by Jacqueline Archer MD) Household Members Other:: , works from home, no exercise, with Parkinson Housing: House Alcohol intake: never Patient Tobacco Use Status: Former Tobacco user Tobacco use type: Cigarette e-Cigarette/Vaping Use: Never Used service: No Current occupational status: employed 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 Reports pain on the lateral aspect of the ankle that radiates up the leg and down into the toes, as well as pain in the arch and heel. Reports bunions and hammertoes. Reports fallen arches. Reports a history of osteoarthritis, rheumatoid arthritis, and fibromyalgia. Const All systems reviewed & are unremarkable except as noted in HPI and below Physical Exam Vital Signs: BMI result Body Mass Index 45.0 Extrem Other: B/L LE Focused Physical Exam: Derm: No open lesions abrasions or wounds noted. Pre hyperkeratotic areas noted. No discoloration, erythema, or ecchymosis noted. No maceration noted. Skin supple and turgor within normal limits. No clinical signs of infection noted. Vasc: DP/PT pulses palpable. CFT < 3 secs. Temp gradient warm to warm. Pedal hair absent. Varicosities noted. Neuro: Protective sensations grossly diminished. MSK: Pain on palpation to the lateral aspects of the ankle, along the lateral ankle ligaments, worse to right. Pain with ROM of the ankle, worse with plantarflexion, dorsiflexion, and eversion, worse of the right. Pain on palpation to the forefoot at the area of the hammertoes. No crepitus or fluctuance noted. Antalgic gait unassisted noted. Results Reviewed Results Reviewed: Podiatry Read of B/L foot xrays (04/11/25): Left - HAV noted with 1st IM angle noted to be approximately 17.6 deg. Hammertoe deformities noted. 1st MPJ joint space narrowing noted. Osteophytes noted to midfoot. Plantar Calcaneal spur noted. Right - 1st MPJ joint space narrowing. Hammertoe deformities noted. Calcaneal spur noted to the posterior and plantar aspect noted. Osteophytes noted to midfoot. B/L foot xrays (04/11/25): FINDINGS: RIGHT FOOT: There is mild narrowing of the first MTP joint. There is osteopenia involving the medial segment-fifth metatarsal heads. The cortical white line is indistinct at the third and fourth metatarsals and borderline at the second and fifth metatarsal heads. There is a focal erosion involving the lateral margin of the fifth metatarsal head. Tarsometatarsal joints appear intact. There are no other areas concerning for erosion. Calcaneal spurs are noted. Dorsal midfoot marginal osteophytes are present. LEFT FOOT: Moderate to severe hallux valgus deformity is present with associated degenerative cystic change in the first metatarsal head. There is nonspecific osteopenia involving the medial segment of the fifth metatarsal heads. The cortical white line of the fourth and fifth metatarsal heads is indistinct. The third metatarsal head cortical outline is borderline. There is possible erosion at the lateral margin of the fifth metatarsal head. Tarsometatarsal joints are aligned. There is suspected marginal erosion involving the medial aspect of the medial cuneiform and possibly involving the base of the second, third, and fourth metatarsals at the articulation with the cuneiform joints. IMPRESSION: Marginal erosions are consistent with an inflammatory arthropathy, likely rheumatoid arthritis with active aggressive erosions. Assessment & Plan Assessment & Plan (1) Bilateral foot pain: Code(s): M79.671 - Pain in right foot; M79.672 - Pain in left foot Category: Medical (2) Bilateral ankle pain: Code(s): M25.571 - Pain in right ankle and joints of right foot; M25.572 - Pain in left ankle and joints of left foot Category: Medical (3) Chronic instability of ankle: Code(s): M25.373 - Other instability, unspecified ankle Category: Medical (4) Plantar fasciitis, bilateral: Code(s): M72.2 - Plantar fascial fibromatosis Category: Medical (5) Peripheral neuropathy: Comment: She has history of prediabetes, which can cause lower extremity peripheral neuropathy in rare situations. TSH is normal. Code(s): G62.9 - Polyneuropathy, unspecified Category: Medical (6) Prediabetes: Code(s): R73.03 - Prediabetes Category: Medical (7) Pes planus: Code(s): M21.40 - Flat foot [pes planus] (acquired), unspecified foot Category: Medical (8) Hammertoes of both feet: Code(s): M20.41 - Other hammer toe(s) (acquired), right foot; M20.42 - Other hammer toe(s) (acquired), left foot Category: Medical (9) Hallux valgus: Code(s): M20.10 - Hallux valgus (acquired), unspecified foot Category: Medical Plan Patient was informed and verbally consented to the use of an ambient scribe for clinic note documentation during this visit. I discussed with the patient that her lateral ankle pain is likely due to chronic ankle instability, where the ligaments on the lateral of the ankle have been weakened over time from previous sprains, a common occurrence. I explained that her various issues, including plantar fasciitis, bunions, and hammertoes, all contribute to her overall foot and ankle pain. We reviewed the conservative treatment plan, including ordering new bilateral foot and ankle x-rays, starting an oral steroid (Medrol Dosepak) due to her history of stomach pain with ibuprofen, and providing bilateral ankle braces for immediate support. I also provided a prescription for orthopedic shoes and inserts. I set the expectation that it may take two to six months for significant pain relief with conservative measures and that if symptoms persist beyond that, we would discuss surgical options. The patient is to return in three weeks for follow-up. - An order wasplaced for bilateral foot and ankle x-rays to be completed at the hospital to fully evaluate the joints and assess for any changes. - A prescription for a Medrol Dosepak was provided. - The patient was provided with bilateral stabilizaing lace up ankle braces. - A prescription was provided for orthopedic shoes and orthotic inserts. - The patient is encouraged to continue stretching exercises for plantar fasciitis. - The use of a night splint was discussed as part of the conservative treatment plan to help stretch the calf muscles. - If conservative treatment, including exercises, bracing, potential injections, and physical therapy, does not provide relief within 2-6 months, surgical options will be considered. RTC in 3 weeks. Orders: Orders XR Ankle John min 3V 10/12/25 M25.571 - Pain in right ankle and joints of right foot, M25.572 - Pain in left ankle and joints of left foot, M79.671 - Pain in right foot, M79.672 - Pain in left foot XR Foot John 3V 10/12/25 M25.571 - Pain in right ankle and joints of right foot, M25.572 - Pain in left ankle and joints of left foot, M79.671 - Pain in right foot, M79.672 - Pain in left foot Medications: New methylprednisolone (Medrol (Yair)) PO PER PKG DIR 21 ea 0RF M25.373 - Other instability, unspecified ankle, M72.2 - Plantar fascial fibromatosis [Orthopedic shoes and inserts] As directed 1 ea 0RF G62.9 - Polyneuropathy, unspecified, M20.10 - Hallux valgus (acquired), unspecified foot, M20.41 - Other hammer toe(s) (acquired), right foot, M20.42 - Other hammer toe(s) (acquired), left foot, M21.40 - Flat foot [pes planus] (acquired), unspecified foot, M25.373 - Other instability, unspecified ankle, M25.571 - Pain in right ankle and joints of right foot, M25.572 - Pain in left ankle and joints of left foot, M72.2 - Plantar fascial fibromatosis, M79.671 - Pain in right foot, M79.672 - Pain in left foot, R73.03 - Prediabetes Coding Level of Care Code New Pt Level 4 (52076) Diagnoses Bilateral foot pain M79.671; M79.672 Bilateral ankle pain M25.571; M25.572 Chronic instability of ankle M25.373 Plantar fasciitis, bilateral M72.2 Peripheral neuropathy G62.9 Prediabetes R73.03 Pes planus M21.40 Hammertoes of both feet M20.41; M20.42 Hallux valgus M20.10 Time Spent (min) 48
[2025-10-12 10:00] VITALS: BMI 45.0
== END 2025-10-12 11:05 | disposition home or self-care (01) ==
LOC: HO.HPODS 09:56
PROVIDERS: PCP Internal Medicine; Visit Provider Student in an Organized Health Care Education/Training Program
DX: M79.671 Pain in right foot (principal); M79.672 Pain in left foot; M25.571 Pain in right ankle and joints of right foot; M25.572 Pain in left ankle and joints of left foot; M25.373 Other instability, unspecified ankle; M72.2 Plantar fascial fibromatosis; G62.9 Polyneuropathy, unspecified; R73.03 Prediabetes; M21.40 Flat foot [pes planus] (acquired), unspecified foot; M20.41 Other hammer toe(s) (acquired), right foot; M20.42 Other hammer toe(s) (acquired), left foot; M20.10 Hallux valgus (acquired), unspecified foot
CPT/HCPCS: 99204

== ENCOUNTER → 2025-10-12 09:55 | Outpatient (BNVA) | payer MEDICARE, SELFPAY | PROVIDERS: PCP Internal Medicine; Visit Provider Student in an Organized Health Care Education/Training Program | DX: M20.12 Hallux valgus (acquired), left foot (principal); M20.41 Other hammer toe(s) (acquired), right foot; M20.42 Other hammer toe(s) (acquired), left foot; M21.40 Flat foot [pes planus] (acquired), unspecified foot; R73.03 Prediabetes; G62.9 Polyneuropathy, unspecified; M72.2 Plantar fascial fibromatosis; M25.373 Other instability, unspecified ankle; M25.571 Pain in right ankle and joints of right foot; M25.572 Pain in left ankle and joints of left foot; M79.671 Pain in right foot; M79.672 Pain in left foot | CPT/HCPCS: 99202 ==

== ENCOUNTER 2025-10-23 11:36 | Outpatient (REF) | payer MEDICARE, SELFPAY ==
--- NOTE | ~2025-10-23 | XR_ITS ---
EXAMINATION: X-ray bilateral feet CLINICAL INFORMATION: Pain COMPARISON: X-ray 04/11/2025 TECHNIQUE: Left foot 3 views. Right foot 3 views. FINDINGS: Left foot: Moderate to severe hallux valgus, mild first MTP arthritis. Dorsal spurring at the talonavicular, tarsometatarsal joints in the lateral view. No visible acute fracture or dislocation. Alignment is anatomic. Similar osteopenia involving the medial fifth metatarsal head. Stable possible erosion in the lateral fifth metatarsal head No abnormal soft tissue calcification. Moderate plantar and small posterior calcaneal enthesophyte. Right foot: Mild first metatarsal joint space narrowing. Significant bone demineralization in the medial aspect of the second and third metatarsal heads. Similar erosion in the lateral aspect of the fifth metatarsal head. Dorsal spurring in the midfoot. Small plantar and posterior calcaneal spur. XR/XR Ankle John min 3V IMPRESSION: Marginal erosions in bilateral feet, similar to previous. Consider inflammatory arthropathy. Bilateral hallux valgus as above. Electronically signed by: Eddie Carbajal MD 10/24/2025 07:49 AM KADEN BROOKS
--- NOTE | ~2025-10-23 | XR_ITS ---
EXAMINATION: X-ray bilateral feet CLINICAL INFORMATION: Pain COMPARISON: X-ray 04/11/2025 TECHNIQUE: Left foot 3 views. Right foot 3 views. FINDINGS: Left foot: Moderate to severe hallux valgus, mild first MTP arthritis. Dorsal spurring at the talonavicular, tarsometatarsal joints in the lateral view. No visible acute fracture or dislocation. Alignment is anatomic. Similar osteopenia involving the medial fifth metatarsal head. Stable possible erosion in the lateral fifth metatarsal head No abnormal soft tissue calcification. Moderate plantar and small posterior calcaneal enthesophyte. Right foot: Mild first metatarsal joint space narrowing. Significant bone demineralization in the medial aspect of the second and third metatarsal heads. Similar erosion in the lateral aspect of the fifth metatarsal head. Dorsal spurring in the midfoot. Small plantar and posterior calcaneal spur. XR/XR Foot John 3V IMPRESSION: Marginal erosions in bilateral feet, similar to previous. Consider inflammatory arthropathy. Bilateral hallux valgus as above. Electronically signed by: Eddie Carbajal MD 10/24/2025 07:49 AM KADEN BROOKS
== END 2025-10-23 11:37 | disposition home or self-care (01) ==
LOC: HO.XRAY 11:36
PROVIDERS: PCP Internal Medicine; Visit Provider Student in an Organized Health Care Education/Training Program
DX: M25.571 Pain in right ankle and joints of right foot (principal); M25.572 Pain in left ankle and joints of left foot
CPT/HCPCS: 73610; 73630

== ENCOUNTER → 2025-10-23 11:40 | Outpatient (BNV) | payer MEDICARE, SELFPAY | PROVIDERS: PCP Internal Medicine; Visit Provider Radiology Diagnostic Ultrasound | DX: M20.11 Hallux valgus (acquired), right foot (principal); M20.12 Hallux valgus (acquired), left foot | CPT/HCPCS: 73610; 73630 ==

== ENCOUNTER 2025-10-27 11:53 | Outpatient (REF) | payer MEDICARE, SELFPAY ==
[2025-10-27 12:08] LABS: MANUAL DIFF FLAG NO
[2025-10-27 12:20] LABS: Hematocrit 39.2 % (37.0-47.0); Hemoglobin 12.7 g/dl (12.0-16.0); Imm Gran Abs Auto 0.02 X10*3/uL (0.00-0.03); Imm Gran Pct Auto 0.2 % (0.0-0.4); Lymphocytes Absolute Auto 1.2 X10*3/uL (1.2-4.9); Mean Corpuscular HGB Conc 32.4 g/dl (31.0-35.0); Mean Corpuscular Hemoglobin 29.2 pg (27.0-33.0); Mean Corpuscular Volume 90.1 fL (80.0-98.0); NRBC Abs Auto 0.000 X10*3/uL (0.0-0.012); NRBC Pct Auto 0.0 /100WBC (0.0-0.2); Platelet Count 207 X10*3/uL (160-400); Red Blood Count 4.35 X10*6/uL (4.20-5.50); White Blood Count 8.1 X10*3/uL (4.8-10.8)
[2025-10-27 12:58] LABS: Alanine Aminotransferase 30 U/L (0-31); Aspartate Amino Transferase 27 U/L (5-31); Estimated Glomerular Filt Rate > 60
== END 2025-10-27 11:54 | disposition home or self-care (01) ==
LOC: HO.LAB 11:53
PROVIDERS: PCP Internal Medicine; Visit Provider Internal Medicine Rheumatology
DX: Z79.899 Other long term (current) drug therapy (principal)
CPT/HCPCS: 36415; 82565; 84450; 84460; 85025; 85652; 86140

== ENCOUNTER 2025-10-31 12:22 | Outpatient (AMB) | payer MEDICARE, SELFPAY ==
--- NOTE | 2025-10-31 12:38 | MHC.OFFVIS ---
Vital Signs 10/31/25 12:39 Height 5 ft 4 in Weight 262 lb BMI 45.0 Intake Visit Reasons: b/l plantar fasciitis,ankle instability, bunions, Intake Note: Nahomy is a 70 year old female who presents today for a follow up on her bilateral plantar fasciitis, ankle instability, and bunions. At her last visit an order was placed for bilateral X-rays of the foot and ankle. patient was prescribed medrol dosepak and was provided with prescriptions for orthopedics shoes and inserts. He was provided with bilateral lace up ankle brace and advised to continue with stretching exercises and utilizing the night splints. Patient reports she never received night splints or her orthopedic shoes and inserts. She finds the medrol dosepak has helped her significantly but once course was completed her pain has returned. Allergies aspirin (ASPIRIN) Adverse Reaction (Unknown, Verified 10/31/25 12:40) STOMACH SENSITIVITY ibuprofen (IBUPROFEN) Adverse Reaction (Unknown, Verified 10/31/25 12:40) STOMACH SENSITIVITY HPI Comments Details: The patient is a 70 year old female presenting for a follow-up visit for persistent B/L plantar fasciitis, ankle instability, and bunions. She rates her pain as a 7-8/10 and reports her right hurts more than the left. A prior 6-day course of a Medrol Dosepak worked very well, but the pain returned once the medication was finished. She states she has been using the lace up ankle braces when doing a lot of walking but has difficulty putting them on and adjusting the tightness. Patient seen without braces today. She denies any new pedal injuries. Denies any other pedal concerns. PENDING SALE TO [facility] Medical History (Updated 11/07/25 @ 13:00 by Kourtney Collazo DPM) Hammertoes of both feet Hallux valgus Prediabetes Pes planus Chronic instability of ankle Plantar fasciitis, bilateral Bilateral ankle pain Bilateral foot pain Thyroid nodule DEZ (obstructive sleep apnea) Rheumatoid arthritis Tubular adenoma of colon Morbid obesity Hyperglycemia HTN (hypertension) Depression, unspecified Bleeding hemorrhoids Osteoarthritis cervical spine Fibromyalgia Surgical History (Updated 10/02/25 @ 10:22 by Jacqueline Archer MD) History of left knee replacement H/O colonoscopy History of carpal tunnel surgery S/P cholecystectomy H/O: hysterectomy Family History Father Colorectal cancer Paternal Grandmother Diabetes Mother Hypertension Lung cancer Social History (Updated 10/02/25 @ 10:16 by Jacqueline Archer MD) Household Members Other:: , works from home, no exercise, with Parkinson Housing: House Alcohol intake: never Patient Tobacco Use Status: Former Tobacco user Tobacco use type: Cigarette e-Cigarette/Vaping Use: Never Used service: No Current occupational status: employed 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 - She also reports swelling on the top of the feet and a feeling of instability when walking. All systems reviewed & are unremarkable except as noted in HPI and below Physical Exam Vital Signs: BMI result Body Mass Index 45.0 Extrem Other: B/L LE Focused Physical Exam: Derm: No open lesions abrasions or wounds noted. Pre hyperkeratotic areas noted. No discoloration, erythema, or ecchymosis noted. No maceration noted. Skin supple and turgor within normal limits. No clinical signs of infection noted. Vasc: DP/PT pulses palpable. CFT < 3 secs. Temp gradient warm to warm. Pedal hair absent. Varicosities noted. Neuro: Protective sensations grossly diminished. MSK:HAV noted, worse to the left. Continued Pain on palpation to the lateral aspects of the ankle, along the lateral ankle ligaments, worse to right. Pain with ROM of the ankle, worse with plantarflexion, dorsiflexion, and eversion, worse of the right. Pain on palpation to the forefoot at the area of the hammertoes. Pain on palpation to the medial calcaneal tubercles b/l. No crepitus or fluctuance noted. Antalgic gait unassisted noted. Results Reviewed Results Reviewed: Podiatry Read of B/L ankle xrays (10/23/25): Joint space narrowing of ankle joint noted. No acute fractures or dislocations noted. B/L ankle xrays (10/23/25): FINDINGS: Left foot: Moderate to severe hallux valgus, mild first MTP arthritis. Dorsal spurring at the talonavicular, tarsometatarsal joints in the lateral view. No visible acute fracture or dislocation. Alignment is anatomic. Similar osteopenia involving the medial fifth metatarsal head. Stable possible erosion in the lateral fifth metatarsal head No abnormal soft tissue calcification. Moderate plantar and small posterior calcaneal enthesophyte. Right foot: Mild first metatarsal joint space narrowing. Significant bone demineralization in the medial aspect of the second and third metatarsal heads. Similar erosion in the lateral aspect of the fifth metatarsal head. Dorsal spurring in the midfoot. Small plantar and posterior calcaneal spur. IMPRESSION: Marginal erosions in bilateral feet, similar to previous. Consider inflammatory arthropathy. Bilateral hallux valgus as above. Podiatry Read of B/L foot xrays (10/23/25): Left - HAV noted with 1st IM angle measuring approximately 17.9 deg and 1st MPJ joint space narrowing. Tailor's bunion noted. Hammertoes 2-4. Osteophytes noted to the dorsal midfoot with joint space narrowing noted. Plantar and posterior calcaneal spur noted. Right - Mild HAV noted with 1st IM angle measuring approximately 12.6 deg. Mild Joint space narrowing noted to the 1st MPJ. Mild tailor's bunion noted. Nild hammertoes 2-4. Plantar and posterior calcaneal spur noted. Midfoot osteophytes noted with midtarsal joint narrowing noted. B/L foot xrays (10/23/25): FINDINGS: Left foot: Moderate to severe hallux valgus, mild first MTP arthritis. Dorsal spurring at the talonavicular, tarsometatarsal joints in the lateral view. No visible acute fracture or dislocation. Alignment is anatomic. Similar osteopenia involving the medial fifth metatarsal head. Stable possible erosion in the lateral fifth metatarsal head No abnormal soft tissue calcification. Moderate plantar and small posterior calcaneal enthesophyte. Right foot: Mild first metatarsal joint space narrowing. Significant bone demineralization in the medial aspect of the second and third metatarsal heads. Similar erosion in the lateral aspect of the fifth metatarsal head. Dorsal spurring in the midfoot. Small plantar and posterior calcaneal spur. IMPRESSION: Marginal erosions in bilateral feet, similar to previous. Consider inflammatory arthropathy. Bilateral hallux valgus as above. Podiatry Read of B/L foot xrays (04/11/25): Left - HAV noted with 1st IM angle noted to be approximately 17.6 deg. Hammertoe deformities noted. 1st MPJ joint space narrowing noted. Osteophytes noted to midfoot. Plantar Calcaneal spur noted. Right - 1st MPJ joint space narrowing. Hammertoe deformities noted. Calcaneal spur noted to the posterior and plantar aspect noted. Osteophytes noted to midfoot. B/L foot xrays (04/11/25): FINDINGS: RIGHT FOOT: There is mild narrowing of the first MTP joint. There is osteopenia involving the medial segment-fifth metatarsal heads. The cortical white line is indistinct at the third and fourth metatarsals and borderline at the second and fifth metatarsal heads. There is a focal erosion involving the lateral margin of the fifth metatarsal head. Tarsometatarsal joints appear intact. There are no other areas concerning for erosion. Calcaneal spurs are noted. Dorsal midfoot marginal osteophytes are present. LEFT FOOT: Moderate to severe hallux valgus deformity is present with associated degenerative cystic change in the first metatarsal head. There is nonspecific osteopenia involving the medial segment of the fifth metatarsal heads. The cortical white line of the fourth and fifth metatarsal heads is indistinct. The third metatarsal head cortical outline is borderline. There is possible erosion at the lateral margin of the fifth metatarsal head. Tarsometatarsal joints are aligned. There is suspected marginal erosion involving the medial aspect of the medial cuneiform and possibly involving the base of the second, third, and fourth metatarsals at the articulation with the cuneiform joints. IMPRESSION: Marginal erosions are consistent with an inflammatory arthropathy, likely rheumatoid arthritis with active aggressive erosions. Assessment & Plan Assessment & Plan (1) Plantar fasciitis, bilateral: Code(s): M72.2 - Plantar fascial fibromatosis Category: Medical (2) Bilateral ankle pain: Code(s): M25.571 - Pain in right ankle and joints of right foot; M25.572 - Pain in left ankle and joints of left foot Category: Medical (3) Bilateral foot pain: Code(s): M79.671 - Pain in right foot; M79.672 - Pain in left foot Category: Medical (4) Chronic instability of ankle: Code(s): M25.373 - Other instability, unspecified ankle Category: Medical (5) Peripheral neuropathy: Code(s): G62.9 - Polyneuropathy, unspecified Category: Medical (6) Prediabetes: Code(s): R73.03 - Prediabetes Category: Medical (7) Pes planus: Code(s): M21.40 - Flat foot [pes planus] (acquired), unspecified foot Category: Medical (8) Hammertoes of both feet: Code(s): M20.41 - Other hammer toe(s) (acquired), right foot; M20.42 - Other hammer toe(s) (acquired), left foot Category: Medical (9) Hallux valgus: Code(s): M20.10 - Hallux valgus (acquired), unspecified foot Category: Medical Plan Patient was informed and verbally consented to the use of an ambient scribe for clinic note documentation during this visit. I reviewed the patient's recent foot and ankle x-rays with her, explaining the findings of significant arthritis, hammertoes, bunions, joint space narrowing, and bone spurs in both feet. I noted that while her right foot is more painful, the bone spur on her left heel is larger on imaging. I explained that the swelling she experiences is likely due to soft tissue irritation from the bone spurs with movement. We discussed the treatment plan, which will begin with a prescription for meloxicam to manage her pain, as the previous Medrol Dosepak was effective but short-acting. I also implemented a plan for physical therapy to address chronic ankle instability and will provide her with bilateral night splints to help stretch the plantar fascia. The patient was informed that physical therapy is a required step before insurance will approve an MRI to evaluate ligaments and tendons. Future management options, such as cortisone injections or joint fusion for arthritis, were also discussed if conservative treatment fails. I provided her with instructions on how to contact the physical therapy office and scheduled a follow-up appointment in eight weeks to monitor her progress. - Prescribed meloxicam to manage pain and inflammation. - To address plantar fasciitis and maintain stretching, the patient was fitted for bilateral night splints. - Continue at home stretching exercises. - A referral was placed for physical therapy to address chronic ankle instability and strengthen ligaments. - The patient was advised that an MRI may be considered to evaluate ligaments and tendons if physical therapy does not provide relief. - Discussed future treatment options if conservative measures fail, including cortisone injections every 3-4 months or surgical intervention. RTC in 8 weeks. Orders: Orders PT Evaluation and Treatment 10/31/25 M25.373 - Other instability, unspecified ankle, M25.571 - Pain in right ankle and joints of right foot, M25.572 - Pain in left ankle and joints of left foot, M72.2 - Plantar fascial fibromatosis, M79.671 - Pain in right foot, M79.672 - Pain in left foot Medications: New meloxicam 15 mg PO DAILY 30 tabs 1RF M25.373 - Other instability, unspecified ankle, M25.571 - Pain in right ankle and joints of right foot, M25.572 - Pain in left ankle and joints of left foot, M72.2 - Plantar fascial fibromatosis, M79.671 - Pain in right foot, M79.672 - Pain in left foot Discontinued methylprednisolone Discontinued Reason: Patient Completed Course PO PER PKG DIR 21 ea 0RF M25.373 - Other instability, unspecified ankle, M72.2 - Plantar fascial fibromatosis Coding Level of Care Code Est Pt Level 4 (62596) Diagnoses Plantar fasciitis, bilateral M72.2 Bilateral ankle pain M25.571; M25.572 Bilateral foot pain M79.671; M79.672 Chronic instability of ankle M25.373 Peripheral neuropathy G62.9 Prediabetes R73.03 Pes planus M21.40 Hammertoes of both feet M20.41; M20.42 Hallux valgus M20.10 Time Spent (min) 30
[2025-10-31 12:39] VITALS: BMI 45.0
== END 2025-10-31 13:02 | disposition home or self-care (01) ==
LOC: HO.HPODS 12:23
PROVIDERS: PCP Internal Medicine; Visit Provider Student in an Organized Health Care Education/Training Program
DX: M72.2 Plantar fascial fibromatosis (principal); M25.571 Pain in right ankle and joints of right foot; M25.572 Pain in left ankle and joints of left foot; M79.671 Pain in right foot; M79.672 Pain in left foot; M25.373 Other instability, unspecified ankle; G62.9 Polyneuropathy, unspecified; R73.03 Prediabetes; M21.40 Flat foot [pes planus] (acquired), unspecified foot; M20.41 Other hammer toe(s) (acquired), right foot; M20.42 Other hammer toe(s) (acquired), left foot; M20.10 Hallux valgus (acquired), unspecified foot
CPT/HCPCS: 99214

== ENCOUNTER → 2025-10-31 12:22 | Outpatient (BNVA) | payer MEDICARE, SELFPAY | PROVIDERS: PCP Internal Medicine; Visit Provider Student in an Organized Health Care Education/Training Program | DX: M72.2 Plantar fascial fibromatosis (principal); M25.373 Other instability, unspecified ankle; G62.9 Polyneuropathy, unspecified; R73.03 Prediabetes; M21.40 Flat foot [pes planus] (acquired), unspecified foot; M20.41 Other hammer toe(s) (acquired), right foot; M20.42 Other hammer toe(s) (acquired), left foot; M20.10 Hallux valgus (acquired), unspecified foot | CPT/HCPCS: 99212 ==